=== PATIENT | female | born 1930 | race Caucasian/White ===

== ENCOUNTER 2018-06-07 05:08 | Inpatient (IN) | payer OTHER ==
--- NOTE | 2018-06-07 06:59 | PDOC ---
History of Present Illness - General Stated Complaint: FALL Time Seen by Provider: 06/07/18 06:44 History Source: Patient Exam Limitations: No Limitations - History of Present Illness Initial Comments: 06/07/18 06:45 [id number] with h/o HTN, HLD, vertigo, GERD, chronic low back pain, anxiety, appendectomy, and hysterectomy, was BIBEMS alongside her son s/p fall ~3 days ago. Patient herself cannot recall the exact date of the incident but states she slipped and fell while attempting to sort her garbage and recycling, had no preceding symptoms, no LOC, hit the front of her head states on a cardboard box , subsequently had small amount of left sided trunk pain worse in the left low ribs and hip. She did not tell her family about the incident at the time. She was functioning well with mild pain for the past couple of days until yesterday afternoon when her pain began worsening. States that her pain worsened significantly and awakened her from sleep this morning at 3 am, she called her son, and they decided to come into the ED. She has not been able to walk since yesterday afternoon. Has worsened pain with ranging the left hip and with deep breathing. Otherwise denies any symptoms lately. Past History - Past Medical History Allergies/Adverse Reactions: Allergies Allergy/AdvReac Type Severity Reaction Status Date / Time Iodinated Contrast- Oral and Allergy Severe Verified 06/07/18 07:09 IV Dye [IV Dye, Iodine Containing Contrast ] meperidine HCl [From Demerol] Allergy Severe Vomiting Verified 06/07/18 07:09 morphine Allergy Severe Vomiting Verified 06/07/18 07:09 pitavastatin calcium Allergy Verified 06/07/18 07:09 [From Livalo] venom-honey bee Allergy Verified 06/07/18 07:09 [bee venom (honey bee)] Home Medications: Ambulatory Orders Acetaminophen [Tylenol .Regular Strength -] 650 mg PO Q4H PRN #0 tablet Cholecalciferol (Vitamin D3) [Vitamin D3 -] 2,000 unit PO DAILY #0 tab 06/22/14 Ezetimibe [Zetia -] 10 mg PO DAILY #30 tablet 06/15/15 Aspirin 81 mg PO DAILY 06/07/18 Diltiazem Cd [Cardizem Cd -] 240 mg PO DAILY 01/17/19 Sertraline HCl [Zoloft] 25 mg PO DAILY 06/07/18 Anemia: No Asthma: No Cancer: No Cardiac Disorders: Yes (VT, cardiac cath; MVP) CVA: No COPD: No CHF: No Dementia: No Diabetes: No GI Disorders: No Disorders: No HTN: Yes Hypercholesterolemia: Yes Liver Disease: No Seizures: No Thyroid Disease: Yes (hypo) - Surgical History Abdominal Surgery: Yes Appendectomy: Yes Cardiac Surgery: No Cholecystectomy: No Lung Surgery: No Neurologic Surgery: No Orthopedic Surgery: No - Suicide/Smoking/Psychosocial Hx Smoking Status: No Smoking History: Never smoked Have you smoked in the past 12 months: No Number of Cigarettes Smoked Daily: 0 Hx Alcohol Use: No Drug/Substance Use Hx: No Substance Use Type: None Hx Substance Use Treatment: No Review of Systems - Review of Systems Able to Perform ROS?: Yes Comments:: GEN: no fever, chills, generalized weakness, or malaise HEENT: bruising, no ear pain, eye pain, throat pain, throat swelling, nosebleed , vision change, or loose teeth SKIN: bruises, no cuts, abrasions, rashes, or jaundice CV: left chest/rib pain, no palpitations, or LOC RESP: no cough or SOB GI: no abdominal pain, nausea, vomiting, or black/bloody stool : no hematuria or flank pain/bruising MSK: no muscle weakness, muscle pain, joint pain, or joint swelling NEURO: no headache, seizure, numbness, tingling, or focal weakness PSYCH: no suicidality, homicidality, or substance use *Physical Exam - Vital Signs Initial Vital Signs Temp Pulse Resp BP Pulse Ox 97.5 F L 93 H 19 184/91 H 97 06/07/18 05:10 06/07/18 05:10 06/07/18 05:10 06/07/18 05:10 06/07/18 05:10 - Physical Exam Comments: GENERAL: Arrives BIBEMS, not on backboard, not in C-collar A:protecting airway B: equal bilateral breath sounds C: extremities wwp x4, 2+ radial and DP pulses bilaterally D: GCS 15, A/Ox4, moving all extremities EXPOSURE: HEENT: see skin exam for frontal bruising, no obvious facial deformity, no cephalohematoma, no scalp laceration, no raccoon eyes, no proptosis, PERRLA, EOMI without pain, no nasal septal hematoma, no obvious CSF rhinorrhea, no epistaxis, no jaw malocclusion, no loose teeth, no becerra sign, no hemotympanum , no obvious CSF otorrhea CHEST WALL: no flail chest, no costal stepoff or deformity, no bruises or lesions, though there is marked ttp to left lateral inferior ribs extending anteriorly to the midclavicular line and posteriorly to the midscapular line CARDIOVASCULAR: regular rhythm, normal S1S2, 1/6 systolic ejection murmur, capillary refill <2 seconds RESPIRATORY: symmetric chest expansion on inspiration, no increased WOB, no cyanosis ABDOMEN: abdomen soft, nondistendedd, nontender, pelvis stable EXTREMITIES: no obvious deformity, full ROM without pain NECK&BACK: no neck or back hematoma, no midline vertebral tenderness C/T/L spine , no spinal step-off or deformity, no paraspinous ttp CTL spine NEURO:CN II-XII grossly intact, 5/5 strength and intact sensation throughout : no CVA tenderness SKIN: midsagittal superior frontal mild bruising, skin otherwise warm and dry, no pallor, no lacerations, no abrasions Heart Score/ECG Review #1 07:25 NSR, incomplete RBBB, normal axis and intervals, no ischemic ST-T changes ED Treatment Course - LABORATORY CBC & Chemistry Diagram: 06/08/18 06:30 06/08/18 06:30 Medical Decision Making - Medical Decision Making Elderly patient p/w fall with mild scalp bruising, rib pain, hip pain. Initial Vital Signs Temp Pulse Resp BP Pulse Ox 97.5 F L 93 H 19 184/91 H 97 06/07/18 05:10 06/07/18 05:10 06/07/18 05:10 06/07/18 05:10 06/07/18 05:10 Exam: As noted in Physical Exam section. DDX IBNLT: For head injury, could be simple scalp contusion, less likely concussion, ICH, skull fracture, facial bone fracture, etc. For rib pain, most likely rib contusion Vs. fracture, less likely splenic injury W/U ordered: Head and C-spine CT, CT chest/abdomen/pelvis, labs as noted, EKG TX ordered: Ofirmev, gentle IVF EKG: Reviewed; results as noted in ECG Review section. Laboratory Tests 06/07/18 06/07/18 06/07/18 08:33 08:33 08:33 WBC 8.5 RBC 4.68 Hgb 14.1 Hct 41.2 MCV 88.1 MCH 30.1 MCHC 34.1 RDW 14.5 Plt Count 225 MPV 9.0 Absolute Neuts (auto) 5.3 Neutrophils % 62.3 Lymphocytes % 27.4 Monocytes % 8.5 Eosinophils % 1.1 Basophils % 0.7 Nucleated RBC % 0 PT with INR 10.40 INR 0.88 PTT (Actin FS) 25.1 L Sodium 143 Potassium 4.4 Chloride 110 H Carbon Dioxide 28 Anion Gap 4 L BUN 20 H Creatinine 0.7 Creat Clearance w eGFR > 60 Random Glucose 93 Calcium 9.2 Magnesium 2.4 Total Bilirubin 0.4 AST 17 ALT 24 Alkaline Phosphatase 89 Creatine Kinase 80 Troponin I < 0.02 Total Protein 6.2 L Albumin 3.6 Blood Type Antibody Screen 06/07/18 08:33 WBC RBC Hgb Hct MCV MCH MCHC RDW Plt Count MPV Absolute Neuts (auto) Neutrophils % Lymphocytes % Monocytes % Eosinophils % Basophils % Nucleated RBC % PT with INR INR PTT (Actin FS) Sodium Potassium Chloride Carbon Dioxide Anion Gap BUN Creatinine Creat Clearance w eGFR Random Glucose Calcium Magnesium Total Bilirubin AST ALT Alkaline Phosphatase Creatine Kinase Troponin I Total Protein Albumin Blood Type AB POSITIVE Antibody Screen Negative CT/CERVICAL SPINE CT W/O CONTR Status post fall.. CT scan of the cervical spine C-. Direct axial images were obtained from the base of the skull through T4 The study was supplemented with computer-generated sagittal, coronal reconstruction images. Findings. No acute fracture, compression deformity, of subluxation is seen. Normal relationship of odontoid to anterior arch of C1. The predental space is narrowed. Intact odontoid. Symmetrical articulation of atlantoaxial and occipito atlantal joints. Normal height of vertebral bodies. Loss of interval disc space height noted at multiple levels with degenerative endplate sclerosis, anterior spondylosis, mild posterior discal osteophytes. Neural foramina narrowing observed at several levels attributed to the facet joint arthropathy, osteoarthritis of uncovertebral joints. Normal alignment of the facet joints. Normal alignment of the spinous processes. Patent airways. There is no evidence of prevertebral soft tissue swelling. The intraspinal contents cannot be adequately evaluated due to the beam hardening artifacts. The airways are patent. No evidence of prevertebral soft tissue swelling. The lung apices are clear. Enlarged right lobe of the thyroid gland with hypodense nodules Impression. No evidence of acute fracture, compression deformities, subluxation , prevertebral soft tissue swelling. Intact odontoid. Multilevel loss of interval disc space height, with degenerative endplate sclerosis, posterior para discal osteophytes. Neural foramina narrowing - osteoarthritis of uncovertebral joints, facet joint arthropathy. Enlarged right lobe of the thyroid gland with hypodense nodules CT/ABDOMEN PELVIS CT W/O CONTR [id number] CT/CHEST CT WITHOUT CONTRAST HISTORY PROVIDED: Fall TECHNIQUE: Sequential axial images were obtained from the thoracic inlet through the symphysis pubis. The study is markedly limited without the use of any contrast material. There is a nondisplaced fracture of the lateral left ninth rib. Associated with the fracture is a small pleural effusion which may represent blood. Minimal atelectatic changes are also seen within the left lower lobe. No additional rib fractures are identified. There is no evidence of a right pleural effusion. Examination of the mediastinum demonstrates right thyroid nodularity. Sonographic follow-up is recommended. There is no evidence of mediastinal masses, fluid collections or lymphadenopathy. The heart is not enlarged. The lung hurst are free of pulmonary masses or areas of acute consolidation. The liver, spleen, pancreas, right adrenal gland and kidneys demonstrate no significant abnormalities. There is a 2.1 cm cyst within the left lobe of the liver. There is a 4.4 cm cyst within the lower pole of the left kidney. There is a 2.5 cm hypodense mass within the left adrenal gland consistent with a benign adenoma. There is no definite evidence of intra-abdominal organ injury, although without the use of intravenous contrast this cannot be completely excluded. There is no evidence of intra-abdominal or retroperitoneal lymphadenopathy or fluid collections. Examination of the pelvis demonstrates no evidence of pelvic masses, fluid collections or lymphadenopathy. There is no evidence of additional fractures or acute bony abnormalities. There are sclerotic changes within several thoracic and lumbar vertebral bodies. The etiology of these changes is uncertain. They are unchanged since a prior study of 04/30/2012 and therefore considered benign in nature. IMPRESSION: 1. Nondisplaced fracture left ninth rib. 2. Small left pleural effusion that may represent a hemothorax related to the rib fracture. 3. Right thyroid nodularity. 4. Left adrenal nodule consistent with benign adenoma. 5. No additional evidence of acute pathology within the chest, abdomen or pelvis. RAD/HIP PELVIS-LEFT Left chest pain. Angle AP view of the pelvis. Left hip 2 views. Demineralized osseous structures. Chronic degenerative changes are observed at L4-5 L5-S1. Symmetrical articulation of the hip joints. Symmetrical bony trabecular pattern is seen in the proximal femur bilaterally. No displaced fracture is seen. Sclerosis of the symphysis pubis. Impression. No acute bony abnormalities are seen. RAD/CHEST - PA Chest pain. Single AP view of the chest. Comparison study study chest x-ray June 20, 2014. For additional findings please refer to the CT of the chest June 07, 2018. The lungs are well aerated, there is no evidence of pneumonia, CHF, pleural effusion, or pneumothorax. Demineralized osseous structures. Nondisplaced fracture of the left ninth rib seen on the CT of the chest is not clearly seen on the x-rays of the left ribs. ADMIT The Pt is unsafe for discharge at this time. They require further hospital observation, workup, and treatment. Microblog sent to [facility] for admission. Blank Decision to Admit order is placed per ED protocol. Spoke with admitting team u.s. representative, in agreement Pt to be admitted. Decision to Admit order corrected with admitting team covering attendings name. Decision to Admit order placed to admitting team covering attending. 06/07/18 10:[address] Montero to notify him of admission. Microblog sent to [facility] for admission. Blank Decision to Admit order placed per ED protocol. 06/07/18 10:[address] Montero who is aware the patient is staying. *DC/Admit/Observation/Transfer Diagnosis at time of Disposition: Fall from ground level, Pleural effusion, Hip pain, left Rib fracture Qualifiers: Encounter type: initial encounter Rib fracture type: single rib Fracture type: closed Laterality: left Qualified Code(s): S22.32XA - Fracture of one rib, left side, initial encounter for closed fracture - Discharge Dispostion Condition at time of disposition: Guarded Decision to Admit order: Yes - Referrals - Patient Instructions - Post Discharge Activity
[2018-06-07] MEDS ORDERED: SODIUM CHLORIDE 0.9% 500 ML INFUS.BAG IV ONE (07:03)
[2018-06-07] MEDS ORDERED: ACETAMINOPHEN 1000 MG/100 ML VIAL (NON FORMULARY) IVPB ONE (07:03)
[2018-06-07 07:09] VITALS: BMI 20.5
[2018-06-07] MEDS ORDERED: ACETAMINOPHEN INJECTION 100 ML IVPB ONE (07:23)
--- NOTE | 2018-06-07 07:43 | PDOC ---
Attending Attestation - Resident Resident Name: Belinda Shi - HPI HPI: 06/07/18 10:23 Pt presents to the ED complaining of L sided chest and hip pain after fall several days ago. Patient has mild dementia and is unable to recall the exact circumstances of the fall. Denies LOC. Pt and son state that she has been ambulatory since the injury. 06/07/18 11:33 - Physicial Exam PE: 06/07/18 11:34 Agree with resident exam. Patient is alert and oriented x 3 and in no acute distress. Lungs are clear. Heart: regular rate and rhythm. Abdomen soft, non tender, non distended without guarding or rebound. Full active ROM of L hip. - Medical Decision Making 06/07/18 11:36 Pt presents to the ED complaining of L hip pain and L rib pain after fall. CT chest shows 9th rib fx and small effusion that may be hemothorax. Given her age and the rib fracture, will admit for observation and pain control. CT head and C spine performed to rule out intracranial or cervical spinal injury and are negative. Hip xray negative for fx.
[2018-06-07 08:57] LABS: BASO % 0.7 % (0-2.0); EOS % 1.1 % (0-4.5); HEMATOCRIT 41.2 % (32.4-45.2); HEMOGLOBIN 14.1 GM/dL (10.7-15.3); LYMPH % 27.4 % (8-40); MCH 30.1 pg (25.7-33.7); MCHC 34.1 g/dl (32.0-36.0); MEAN CELL VOLUME 88.1 fl (80-96); MONO % 8.5 % (3.8-10.2); NEUT % 62.3 % (42.8-82.8); PLATELET COUNT 225 K/MM3 (134-434); RBC 4.68 M/mm3 (3.60-5.2); RDW 14.5 % (11.6-15.6); WHITE BLOOD COUNT 8.5 K/mm3 (4.0-10.0)
[2018-06-07 09:11] LABS: INR 0.88 (0.83-1.09); PROTHROMBIN TIME (PATIENT) 10.4 SEC (9.7-13.0)
[2018-06-07 09:13] LABS: ACTIVATED PTT 25.1 SECONDS (25.2-36.5)
[2018-06-07 09:21] LABS: ALBUMIN 3.6 g/dl (3.4-5.0); ALK PHOS 89 U/L (45-117); ANION GAP 4 MMOL/L (8-16); BILIRUBIN,TOTAL 0.4 mg/dL (0.2-1); BLOOD UREA NITROGEN 20 mg/dL (7-18); CALCIUM 9.2 mg/dL (8.5-10.1); CHLORIDE 110 mmol/L (98-107); CO2 28 mmol/L (21-32); CREATININE 0.7 mg/dL (0.55-1.3); GLUCOSE,RANDOM 93 mg/dL (74-106); MAGNESIUM 2.4 mg/dL (1.8-2.4); POTASSIUM 4.4 mmol/L (3.5-5.1); SGOT/AST 17 U/L (15-37); SGPT/ALT 24 U/L (13-61); SODIUM 143 mmol/L (136-145); TOT PROT 6.2 g/dl (6.4-8.2)
--- NOTE | 2018-06-07 11:45 | HP ---
Admitting History and Physical - Primary Care Physician PCP: Jay Montero - Admission Chief Complaint: fall History of Present Illness: 88 year old female comes in with a mechanical fall at home. Pt reports she was cleaning, she bent down which caused her to fall. Reports this happened around 4 days ago. Pt denies any prodromal symptoms of chest pain, sob, lightheadedness , or nausea. Denies loss of consciousness. Pt reports she was able to get up and ambulate in the last few days however this morning she woke up from left anterior chest pain and she was not able to ambulate due to pain. She reports the pain is radiating from left chest down to hip and LLE. Pt lives alone, so she called her son who brought her into the hospital. Pt is a poor historian and appears confused during my interaction. Denies any chest pain, sob, n/v/d, dysuria, fever/chills. 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 History of Recent Travel: No Home Medications - Allergies Allergies/Adverse Reactions: Allergies Allergy/AdvReac Type Severity Reaction Status Date / Time Iodinated Contrast- Oral and Allergy Severe Verified 06/07/18 07:09 IV Dye [IV Dye, Iodine Containing Contrast ] meperidine HCl [From Demerol] Allergy Severe Vomiting Verified 06/07/18 07:09 morphine Allergy Severe Vomiting Verified 06/07/18 07:09 pitavastatin calcium Allergy Verified 06/07/18 07:09 [From Livalo] venom-honey bee Allergy Verified 06/07/18 07:09 [bee venom (honey bee)] - Home Medications Home Medications: Ambulatory Orders Acetaminophen [Tylenol .Regular Strength -] 650 mg PO Q4H PRN #0 tablet Cholecalciferol (Vitamin D3) [Vitamin D3 -] 2,000 unit PO DAILY #0 tab 06/22/14 Ezetimibe [Zetia -] 10 mg PO DAILY #30 tablet 06/15/15 Aspirin 81 mg PO DAILY 06/07/18 Diltiazem Cd [Cardizem Cd -] 240 mg PO DAILY 06/07/18 Sertraline HCl [Zoloft] 25 mg PO DAILY 06/07/18 Family Disease History - Family Disease History Family Disease History: Heart Disease: Father (ETOH), Mother, Brother, Other: Father Review of Systems Findings/Remarks: as per hpi Physical Examination Vital Signs: Vital Signs Temperature 97.5 F L 06/07/18 05:10 Pulse Rate 93 H 06/07/18 05:10 Respiratory Rate 19 06/07/18 05:10 Blood Pressure 184/91 H 06/07/18 05:10 O2 Sat by Pulse Oximetry (%) 97 06/07/18 05:10 Constitutional: Yes: Well Nourished, No Distress, Calm Cardiovascular: Yes: Regular Rate and Rhythm Respiratory: Yes: Regular, CTA Bilaterally, Diminished (Left side, pt not taking deep breaths), Other (+ttp left anterior thorax). No: Accessory Muscle Use, Rhonchi, SOB, Tachypnea, Wheezes Gastrointestinal: Yes: WNL, Normal Bowel Sounds, Soft. No: Distention, Tenderness Renal/: Yes: WNL Musculoskeletal: Yes: Other (+ttp left lower chest wall) Edema: No Neurological: Yes: Alert, Confusion Psychiatric: Yes: Alert Labs: CBC, BMP 06/07/18 08:33 06/07/18 08:33 Problem List - Problems (1) Fall Assessment/Plan: s/p unwitnessed fall at home appears mechanical from pt's history, however pt is confused head ct neg imaging reviewed, Left 9th rib fx w/ small LLL pleural effusion pt w/ mod-severe left anterior chest wall pain, not taking deep breaths IS 10x/hr pulm consult appreciated adequate pain control PT eval possible ROSALIO placement Code(s): W19.XXXA - UNSPECIFIED FALL, INITIAL ENCOUNTER Qualifiers: Encounter type: initial encounter Qualified Code(s): W19.XXXA - Unspecified fall, initial encounter (2) Rib fracture Assessment/Plan: as above Code(s): S22.39XA - FRACTURE OF ONE RIB, UNSP SIDE, INIT FOR CLOS FX Qualifiers: Encounter type: initial encounter Rib fracture type: single rib Fracture type: closed Laterality: left Qualified Code(s): S22.32XA - Fracture of one rib, left side, initial encounter for closed fracture (3) Pleural effusion Assessment/Plan: as above Code(s): J90 - PLEURAL EFFUSION, NOT ELSEWHERE CLASSIFIED (4) Hyperlipidemia Assessment/Plan: chronic continue zetia outpt monitoring Code(s): E78.5 - HYPERLIPIDEMIA, UNSPECIFIED Qualifiers: Hyperlipidemia type: Pure hypercholesterolemia (5) Hypertension Assessment/Plan: improved suspect 2/2 anxiety/pain continue home meds Code(s): I10 - ESSENTIAL (PRIMARY) HYPERTENSION Qualifiers: Hypertension type: essential hypertension Qualified Code(s): I10 - Essential (primary) hypertension (6) Cognitive impairment Assessment/Plan: pt confused suspect early dementia discussed w/ son, pt has outpt work up in place Code(s): R41.89 - OTH SYMPTOMS AND SIGNS W COGNITIVE FUNCTIONS AND AWARENESS
--- NOTE | 2018-06-07 14:38 | EKG ---
Test Reason : Blood Pressure : / mmHG Vent. Rate : 092 BPM Atrial Rate : 092 BPM P-R Int : 174 ms QRS Dur : 080 ms QT Int : 366 ms P-R-T Axes : 060 028 032 degrees QTc Int : 452 ms NORMAL SINUS RHYTHM LEFT ATRIAL ENLARGEMENT SEPTAL INFARCT , AGE UNDETERMINED POSSIBLE LATERAL INFARCT , AGE UNDETERMINED POSSIBLE INFERIOR INFARCT , AGE UNDETERMINED ABNORMAL ECG WHEN COMPARED WITH ECG OF 13-JUN-2015 06:41, BORDERLINE CRITERIA FOR INFERIOR INFARCT ARE NOW PRESENT Confirmed by KEVIN CARRERO MD ([id number]) on 06/07/2018 2:37:55 PM Referred By: Confirmed By:KEVIN CARRERO MD
[2018-06-07] MEDS: ACETAMINOPHEN 325 MG TABLET (FP) PO SCH ×2 (15:00→22:24)
--- NOTE | 2018-06-07 15:25 | CON.PULM ---
Consult Consult Specialty:: PULM/CCM Referred by:: HAYDEE Reason for Consultation:: Abnormal CT imaging - History of Present Illness Chief Complaint: Fall History of Present Illness: 88 F, HTN, HLD, vertigo, GERD, chronic low back pain, anxiety, appendectomy, and hysterectomy. Admitted via the ER due to an apparent fall. The patient is unable to recall the exact date of the incident but it apparently happened about 3 days ago. She reports that she slipped and fell while attempting to sort her garbage. No LOC. She apparently hit the front of her head on a cardboard box and fell on her left side. Over the past 3 days her pain in her left rib cage and hip has worsened. She has been unable to ambulate due to the pain. CT Chest: minimal left effusion / non-displaced left 9th rib fracture / no parenchymal process - History Source History Provided By: Patient, Medical Record Limitations to Obtaining History: Poor Historian - Past Medical History [employer] ECOLOGIST: Yes: Vertigo, Other (cognitive impairment on exelon) Cardio/Vascular: Yes: HTN, Hyperlipdemia Pulmonary: No: Asthma, COPD, Pneumonia, Previously Intubated, Pulmonary Embolus , Pulmonary Fibrosis, Sleep Apnea Gastrointestinal: Yes: GERD Psych: Yes: Anxiety Musculoskeletal: Yes: Chronic low back pain ENT: Yes: Other (? 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 History of Recent Travel: No Home Medications - Allergies Allergies/Adverse Reactions: Allergies Allergy/AdvReac Type Severity Reaction Status Date / Time Iodinated Contrast- Oral and Allergy Severe Verified 06/07/18 07:09 IV Dye [IV Dye, Iodine Containing Contrast ] meperidine HCl [From Demerol] Allergy Severe Vomiting Verified 06/07/18 07:09 morphine Allergy Severe Vomiting Verified 06/07/18 07:09 pitavastatin calcium Allergy Verified 06/07/18 07:09 [From Livalo] venom-honey bee Allergy Verified 06/07/18 07:09 [bee venom (honey bee)] - Home Medications Home Medications: Ambulatory Orders Acetaminophen [Tylenol .Regular Strength -] 650 mg PO Q4H PRN #0 tablet Cholecalciferol (Vitamin D3) [Vitamin D3 -] 2,000 unit PO DAILY #0 tab 06/22/14 Ezetimibe [Zetia -] 10 mg PO DAILY #30 tablet 06/15/15 Valsartan [Diovan] 80 mg PO DAILY #30 tablet 06/15/15 Aspirin 81 mg PO DAILY 06/07/18 Diltiazem Cd [Cardizem Cd -] 240 mg PO DAILY 06/07/18 Meclizine HCl [Antivert -] 12.5 mg PO TID PRN 06/07/18 Sertraline HCl [Zoloft] 25 mg PO DAILY 06/07/18 Family Disease History - Family Disease History Family Disease History: Heart Disease: Father (ETOH), Mother, Brother, Other: Father Review of Systems - Review of Systems Constitutional: denies: Chills, Fever, Malaise, Night Sweats, Unintentional Wgt. Loss Eyes: reports: No Symptoms HENT: reports: No Symptoms Neck: reports: No Symptoms Cardiovascular: reports: Chest Pain. denies: Edema, Palpitations, Shortness of Breath Respiratory: reports: Cough, SOB. denies: Hemoptysis, Snoring, SOB on Exertion , Wheezing Gastrointestinal: reports: No Symptoms Genitourinary: reports: No Symptoms Breasts: reports: No Symptoms Reported Musculoskeletal: reports: Decreased ROM, Extremity Pain, Joint Pain, Muscle Pain , Muscle Cramps Integumentary: reports: No Symptoms Neurological: reports: No Symptoms, Confusion. denies: Change in LOC, Change in Speech Endocrine: reports: No Symptoms Hematology/Lymphatic: reports: No Symptoms Psychiatric: reports: No Symptoms Physical Exam Vital Sings: Vital Signs Temperature 97.5 F L 06/07/18 05:10 Pulse Rate 93 H 06/07/18 05:10 Respiratory Rate 06/07/18 05:10 Blood Pressure 184/91 H 06/07/18 05:10 O2 Sat by Pulse Oximetry (%) 97 06/07/18 05:10 Constitutional: Yes: No Distress, Calm Eyes: Yes: Conjunctiva Clear, EOM Intact HENT: Yes: Atraumatic, Normocephalic Neck: Yes: Supple, Trachea Midline Cardiovascular: Yes: Regular Rate and Rhythm Respiratory: Yes: CTA Bilaterally. No: Accessory Muscle Use, On Nasal O2, Rales , Rhonchi, SOB, SOB on Exertion, Stridor, Tachypnea, Wheezes ...Inspection: Yes: WNL ...Clubbing: No Gastrointestinal: Yes: Normal Bowel Sounds, Soft Breast(s): Yes: WNL Musculoskeletal: Yes: Muscle Pain Extremities: Yes: WNL Edema: No Peripheral Pulses WNL: Yes Integumentary: Yes: WNL Neurological: Yes: WNL, Alert, Oriented, Confusion ...Motor Strength: WNL Psychiatric: Yes: WNL, Alert, Oriented Labs: CBC, BMP 06/07/18 08:33 06/07/18 08:33 Imaging - Results Chest X-ray: Report Reviewed, Image Reviewed Cat Scan: Report Reviewed, Image Reviewed Problem List - Problems (1) Hip pain, left Code(s): M25.552 - PAIN IN LEFT HIP (2) Pleural effusion Code(s): J90 - PLEURAL EFFUSION, NOT ELSEWHERE CLASSIFIED (3) Rib fracture Code(s): S22.39XA - FRACTURE OF ONE RIB, UNSP SIDE, INIT FOR CLOS FX Qualifiers: Encounter type: initial encounter Rib fracture type: single rib Fracture type: closed Laterality: left Qualified Code(s): S22.32XA - Fracture of one rib, left side, initial encounter for closed fracture (4) Abnormal chest xray Code(s): R93.8 - ABNORMAL FINDINGS ON DIAGNOSTIC IMAGING OF RISHABH * DO NOT USE * (5) Cognitive impairment Code(s): R41.89 - OTH SYMPTOMS AND SIGNS W COGNITIVE FUNCTIONS AND AWARENESS (6) Hyperlipidemia Code(s): E78.5 - HYPERLIPIDEMIA, UNSPECIFIED Qualifiers: Hyperlipidemia type: Pure hypercholesterolemia (7) Hypertension Code(s): I10 - ESSENTIAL (PRIMARY) HYPERTENSION Qualifiers: Hypertension type: essential hypertension Qualified Code(s): I10 - Essential (primary) hypertension (8) Vertigo Code(s): R42 - DIZZINESS AND GIDDINESS Assessment/Plan Minimal left effusion may be small amount of blood from the left 9th rib non- displaced fracture No PTX is noted No intervention needed at this time for minimal left effusion Adequate pain control O2 as needed Incentive Spirometry Fall precautions PT No follow up imaging required No Pulmonary contraindication for D/C planning Will follow Thank you. Dr Newman
[2018-06-07] MEDS: oxyCODONE HCL 5 MG TABLET PO PRN (17:51)
[2018-06-07] MEDS ORDERED: PT OWN MED DRAWER 7, Y5N ONE (18:15)
[2018-06-07] MEDS: ALPRAZolam 0.25 MG TABLET PO SCH (22:23)
[2018-06-07] MEDS: DOCUSATE SODIUM 100 MG CAPSULE (FP) PO SCH (22:24)
[2018-06-08] MEDS: ACETAMINOPHEN 325 MG TABLET (FP) PO SCH ×5 (00:28→23:38)
[2018-06-08 07:15] LABS: BASO % 0.5 % (0-2.0); EOS % 2.2 % (0-4.5); HEMATOCRIT 40.8 % (32.4-45.2); HEMOGLOBIN 13.8 GM/dL (10.7-15.3); LYMPH % 28.6 % (8-40); MCH 30.2 pg (25.7-33.7); MCHC 33.8 g/dl (32.0-36.0); MEAN CELL VOLUME 89.4 fl (80-96); MEAN PLT VOLUME 8.7 fl (7.5-11.1); MONO % 10.3 % (3.8-10.2); NEUT % 58.4 % (42.8-82.8); PLATELET COUNT 216 K/MM3 (134-434); RBC 4.57 M/mm3 (3.60-5.2); RDW 14.3 % (11.6-15.6); WHITE BLOOD COUNT 8.6 K/mm3 (4.0-10.0)
[2018-06-08 07:54] LABS: ALBUMIN 3.3 g/dl (3.4-5.0); ALK PHOS 86 U/L (45-117); ANION GAP 5 MMOL/L (8-16); BILIRUBIN,TOTAL 0.6 mg/dL (0.2-1); BLOOD UREA NITROGEN 22 mg/dL (7-18); CALCIUM 8.8 mg/dL (8.5-10.1); CHLORIDE 106 mmol/L (98-107); CO2 27 mmol/L (21-32); CREATININE 0.7 mg/dL (0.55-1.3); GLUCOSE,RANDOM 90 mg/dL (74-106); POTASSIUM 4.1 mmol/L (3.5-5.1); SGOT/AST 16 U/L (15-37); SGPT/ALT 20 U/L (13-61); SODIUM 138 mmol/L (136-145); TOT PROT 5.9 g/dl (6.4-8.2)
--- NOTE | 2018-06-08 09:58 | PN ---
Progress Note (short form) - Note Progress Note: [employer] Shankar/ Hospitalist to document today. I would rec: SNF if not able to complete PT program.
[2018-06-08] MEDS: ALPRAZolam 0.25 MG TABLET PO SCH ×2 (10:23→21:50)
[2018-06-08] MEDS: SERTRALINE HCL 25 MG TABLET (FP) PO SCH (10:23)
[2018-06-08] MEDS: EZETIMIBE 10 MG TABLET (FP) PO SCH (10:23)
[2018-06-08] MEDS: oxyCODONE HCL 5 MG TABLET PO PRN (10:23)
[2018-06-08] MEDS: POLYETHYLENE GLYCOL 3350 119 GM BTL PO SCH (10:26)
--- NOTE | 2018-06-08 10:49 | PN ---
Progress Note, Physician Chief Complaint: Pt sitting in bed in no acute distress. encourages IS use. son at bedside. increased pain w/ inspiration noted, encouraged pain meds. Denies any chest pain , sob, n/v/d - Current Medication List Current Medications: Active Medications Acetaminophen (Tylenol -) 650 mg PO Q6HPO [facility] Last Admin: 06/08/18 05:35 Dose: Not Given Alprazolam (Xanax -) 0.5 mg PO BID [facility] Last Admin: 06/08/18 10:23 Dose: 0.5 mg Diltiazem HCl (Cardizem Cd -) 240 mg PO DAILY [facility] Last Admin: 06/08/18 10:23 Dose: 240 mg Docusate Sodium (Colace -) 300 mg PO HS [facility] Last Admin: 06/07/18 22:24 Dose: 300 mg Ezetimibe (Zetia -) 10 mg PO DAILY [facility] Last Admin: 06/08/18 10:23 Dose: 10 mg Oxycodone HCl (Roxicodone -) 5 mg PO Q4H PRN PRN Reason: PAIN LEVEL 6-10 Last Admin: 06/08/18 10:23 Dose: 5 mg Polyethylene Glycol (Miralax (For Daily Use) -) 17 gm PO DAILY [facility] Last Admin: 06/08/18 10:26 Dose: 17 gm Sertraline HCl (Zoloft -) 25 mg PO DAILY [facility] Last Admin: 06/08/18 10:23 Dose: 25 mg - Objective Vital Signs: Vital Signs Temperature 98.7 F 06/08/18 06:00 Pulse Rate 82 06/08/18 10:31 Respiratory Rate 20 06/08/18 10:31 Blood Pressure 145/85 06/08/18 10:31 O2 Sat by Pulse Oximetry (%) 98 06/07/18 21:00 Constitutional: Yes: Well Nourished, No Distress Cardiovascular: Yes: Regular Rate and Rhythm Respiratory: Yes: Regular, Diminished, Other (+ttp, anterior chest wall). No: Accessory Muscle Use, SOB, Tachypnea, Wheezes Gastrointestinal: Yes: WNL, Normal Bowel Sounds, Soft. No: Distention, Tenderness Genitourinary: Yes: WNL Edema: No Neurological: Yes: Alert, Confusion, Weakness (right side). No: Facial Droop, Lethargy, Numbness Psychiatric: Yes: Alert Labs: CBC, BMP 06/08/18 06:30 06/08/18 06:30 INR, PTT INR 0.88 (0.83-1.09) 06/07/18 08:33 Assessment/Plan (1) Fall Assessment/Plan: s/p unwitnessed fall at home appears mechanical from pt's history, however pt is confused and with new finding of right hemiparesis, need to r/o cva head ct neg, MRI brain ordered cardiac echo/carotid duplex ordered PT consider neuro eval if MRI w/ acute findings ROSALIO placement, discussed w/ son Code(s): W19.XXXA - UNSPECIFIED FALL, INITIAL ENCOUNTER Qualifiers: Encounter type: initial encounter Qualified Code(s): W19.XXXA - Unspecified fall, initial encounter (2) Rib fracture Assessment/Plan: continue IS 10x/hr adequate pain control encourage deep breathing/coughing Code(s): S22.39XA - FRACTURE OF ONE RIB, UNSP SIDE, INIT FOR CLOS FX Qualifiers: Encounter type: initial encounter Rib fracture type: single rib Fracture type: closed Laterality: left Qualified Code(s): S22.32XA - Fracture of one rib, left side, initial encounter for closed fracture (3) Pleural effusion Assessment/Plan: evaluated by pulm monitor Code(s): J90 - PLEURAL EFFUSION, NOT ELSEWHERE CLASSIFIED (4) Hyperlipidemia Assessment/Plan: chronic continue zetia outpt monitoring Code(s): E78.5 - HYPERLIPIDEMIA, UNSPECIFIED Qualifiers: Hyperlipidemia type: Pure hypercholesterolemia (5) Hypertension Assessment/Plan: controlled continue home meds Code(s): I10 - ESSENTIAL (PRIMARY) HYPERTENSION Qualifiers: Hypertension type: essential hypertension Qualified Code(s): I10 - Essential (primary) hypertension (6) Cognitive impairment Assessment/Plan: possible dementia, undiagnosed discussed w/ son, pt has outpt work up in place Code(s): R41.89 - OTH SYMPTOMS AND SIGNS W COGNITIVE FUNCTIONS AND AWARENESS (7) Hemiparesis Assessment/Plan: unclear if acute/chronic as above Code(s): G81.90 - HEMIPLEGIA, UNSPECIFIED AFFECTING UNSPECIFIED SIDE Qualifiers: Hemiparesis etiology: unspecified Hemiparesis laterality: right dominant side Qualified Code(s): G81.91 - Hemiplegia, unspecified affecting right Dispo: SNF
--- NOTE | 2018-06-08 15:17 | ECHO ---
Version: 1 Name: MONICA HENLEY Exam: Adult Echocardiogram Study Date: 06/08/2018, 1:58 PM Age: 88 Years MMode/2D Measurements & Calculations IVSd: 1.00 cm LVIDs: 3.4 cm LVIDd: 5.0 cm LVPWd: 0.74 cm ACS: 1.57 cm Ao root diam: 3.3 cm LA dimension: 3.1 cm Doppler Measurements & Calculations MV E max sergio: 57.3 cm/sec Med E/e': 29.4 MV A max sergio: 107.4 cm/sec Med Peak E' Sergio: 1.95 cm/sec MV E/A: 0.53 Lat E/e': 6.0 Lat Peak E' Sergio: 9.6 cm/sec MR max P.2 mmHg Ao max P.8 mmHg Ao mean P.1 mmHg Ao V2 max: 148.1 cm/sec AI P1/2t: 546.0 msec Procedure A two-dimensional transthoracic echocardiogram with color flow and Doppler was performed. Left Ventricle Basal septal. Left ventricular systolic function is normal. Ejection Fraction = 55%. Right Ventricle The right ventricle is normal in size and function. Atria Normal left and right atrial size and function. Mitral Valve There is moderate mitral annular calcification. There is moderate mitral valve thickening. There is no mitral valve stenosis. There is mild mitral regurgitation. Tricuspid Valve The tricuspid valve is normal in structure and function. There is mild tricuspid regurgitation. Aortic Valve There is mild aortic sclerosis.;. No hemodynamically significant valvular aortic stenosis. Mild aort ic regurgitation. Pulmonic Valve The pulmonic valve is not well seen, but is grossly normal. There is no pulmonic valvular stenosis. Mild pulmonic valvular regurgitation. Great Vessels The aortic root is normal size. Pericardium/Pleura There is no pericardial effusion. Summary Statements Basal septal Left ventricular systolic function is normal. Ejection Fraction = 55%. There is moderate mitral annular calcification. There is moderate mitral valve thickening. There is mild mitral regurgitation. There is mild tricuspid regurgitation. There is mild aortic sclerosis.; Mild aortic regurgitation. There is no pericardial effusion. MD Moreira *Abisai 06/08/2018, 3:16 PM Ordering Physician: Kaur Chaparro Performed By: Ro Garcia
[2018-06-08] MEDS: HEPARIN NA (PORCINE) 5,000 UNITS/ML 1ML VIAL SQ SCH (21:49)
[2018-06-08] MEDS: DOCUSATE SODIUM 100 MG CAPSULE (FP) PO SCH (21:50)
[2018-06-09] MEDS: HEPARIN NA (PORCINE) 5,000 UNITS/ML 1ML VIAL SQ SCH ×3 (06:21→23:01)
[2018-06-09] MEDS: ACETAMINOPHEN 325 MG TABLET (FP) PO SCH ×3 (06:21→17:15)
[2018-06-09 09:05] LABS: BASO % 0.8 % (0-2.0); EOS % 2.8 % (0-4.5); HEMATOCRIT 43.2 % (32.4-45.2); HEMOGLOBIN 14.3 GM/dL (10.7-15.3); MCH 29.8 pg (25.7-33.7); MCHC 33.2 g/dl (32.0-36.0); MEAN CELL VOLUME 89.6 fl (80-96); MEAN PLT VOLUME 8.6 fl (7.5-11.1); MONO % 8.3 % (3.8-10.2); NEUT % 59.1 % (42.8-82.8); PLATELET COUNT 227 K/MM3 (134-434); RBC 4.82 M/mm3 (3.60-5.2); RDW 14.5 % (11.6-15.6); WHITE BLOOD COUNT 7.8 K/mm3 (4.0-10.0)
[2018-06-09 09:50] LABS: ANION GAP 8 MMOL/L (8-16); BLOOD UREA NITROGEN 17 mg/dL (7-18); CALCIUM 9.1 mg/dL (8.5-10.1); CHLORIDE 107 mmol/L (98-107); CO2 28 mmol/L (21-32); CREATININE 0.7 mg/dL (0.55-1.3); GLUCOSE,RANDOM 83 mg/dL (74-106); SODIUM 142 mmol/L (136-145)
[2018-06-09] MEDS: ALPRAZolam 0.25 MG TABLET PO SCH ×2 (11:12→23:01)
[2018-06-09] MEDS: EZETIMIBE 10 MG TABLET (FP) PO SCH (11:13)
[2018-06-09] MEDS: oxyCODONE HCL 5 MG TABLET PO PRN (11:13)
[2018-06-09] MEDS: SERTRALINE HCL 25 MG TABLET (FP) PO SCH (11:13)
[2018-06-09] MEDS: POLYETHYLENE GLYCOL 3350 119 GM BTL PO SCH (11:15)
--- NOTE | 2018-06-09 13:44 | PN ---
Progress Note (short form) - Note Progress Note: PULMONARY Still with pain. Denies shortness of breath or cough. Vital Signs Period Temp Pulse Resp BP Sys/Barber Pulse Ox Last 24 Hr 97.6 F-98.4 F 72-81 18-20 112-137/57-77 95 Gen: NAD at rest Heart: RRR Lung: decreased breath sounds at the bases Abd: soft, nontender Ext: no edema CBC, BMP 06/09/18 07:30 06/09/18 07:30 Active Medications Acetaminophen (Tylenol -) 650 mg PO Q6HPO [facility] Last Admin: 06/09/18 06:21 Dose: Not Given Alprazolam (Xanax -) 0.5 mg PO BID [facility] Last Admin: 06/09/18 11:12 Dose: 0.5 mg Diltiazem HCl (Cardizem Cd -) 240 mg PO DAILY [facility] Last Admin: 06/09/18 11:13 Dose: 240 mg Docusate Sodium (Colace -) 300 mg PO HS [facility] Last Admin: 06/08/18 21:50 Dose: 300 mg Ezetimibe (Zetia -) 10 mg PO DAILY [facility] Last Admin: 06/09/18 11:13 Dose: 10 mg Heparin Sodium (Porcine) (Heparin -) 5,000 unit SQ TID [facility] Last Admin: 06/09/18 06:21 Dose: Not Given Oxycodone HCl (Roxicodone -) 5 mg PO Q4H PRN PRN Reason: PAIN LEVEL 6-10 Last Admin: 06/09/18 11:13 Dose: 5 mg Polyethylene Glycol (Miralax (For Daily Use) -) 17 gm PO DAILY [facility] Last Admin: 06/09/18 11:15 Dose: 17 gm Sertraline HCl (Zoloft -) 25 mg PO DAILY [facility] Last Admin: 06/09/18 11:13 Dose: 25 mg A/P s/p Fall Rib Fracture Reactive Pleural Effusion vs Small Hemothorax Atelectasis HTN Hyperlipidemia - pain control - incentive spirometry - O2 as needed - DVT prophylaxis
--- NOTE | 2018-06-09 13:47 | PN ---
Physical Exam: SUBJECTIVE: Patient seen and examined. Left chest wall pain with breathing and movement, no leg pain or new weakness noted. OBJECTIVE: Vital Signs Period Temp Pulse Resp BP Sys/Barber Pulse Ox Last 24 Hr 97.6 F-98.4 F 72-81 18-20 112-137/57-77 95 GENERAL: The patient is awake, alert, oriented, no acute distress neck: soft, supple no JVD CVS:S1S2 regular Chest: decreased breath sounds left base, no rales, good effort otherwise Abdomen:soft, NT, Nd, positive bowel sounds Extremities: no edema, SLR upto 40 degrees, LLE limited by pain left chest wall , power 5/5 Neuro: AAOx3, facial symmetry, tongue midline, speech normal, no pronator drift , power generalized 4/5, LLE limited by pain in left chest wall, Laboratory Results - last 24 hr 06/09/18 06/09/18 07:30 07:30 WBC 7.8 RBC 4.82 Hgb 14.3 Hct 43.2 MCV 89.6 MCH 29.8 MCHC 33.2 RDW 14.5 Plt Count 227 MPV 8.6 Absolute Neuts (auto) 4.6 Neutrophils % 59.1 Lymphocytes % 29.0 Monocytes % 8.3 Eosinophils % 2.8 Basophils % 0.8 Nucleated RBC % 0 Sodium 142 Potassium 4.0 Chloride 107 Carbon Dioxide 28 Anion Gap 8 BUN 17 Creatinine 0.7 Creat Clearance w eGFR > 60 Random Glucose 83 Calcium 9.1 Active Medications Generic Name Dose Route Start Last Admin Trade Name Freq PRN Reason Stop Dose Admin Acetaminophen 650 mg 06/07/18 12:00 06/09/18 06:21 Tylenol - PO Not Given Q6HPO NATALIE Alprazolam 0.5 mg 06/07/18 22:00 06/09/18 11:12 Xanax - PO 0.5 mg BID NATALIE Administration Diltiazem HCl 240 mg 06/07/18 16:15 06/09/18 11:13 Cardizem Cd - PO 240 mg DAILY NATALIE Administration Docusate Sodium 300 mg 06/07/18 22:00 06/08/18 21:50 Colace - PO 300 mg HS NATALIE Administration Ezetimibe 10 mg 06/08/18 10:00 06/09/18 11:13 Zetia - PO 10 mg DAILY NATALIE Administration Heparin Sodium (Porcine) 5,000 unit 06/08/18 22:00 06/09/18 06:21 Heparin - SQ Not Given TID NATALIE Oxycodone HCl 5 mg 06/07/18 11:46 06/09/18 11:13 Roxicodone - PO 5 mg Q4H PRN Administration PAIN LEVEL 6-10 Polyethylene Glycol 17 gm 06/08/18 10:00 06/09/18 11:15 Miralax (For Daily Use) - PO 17 gm DAILY NATALIE Administration Sertraline HCl 25 mg 06/08/18 10:00 06/09/18 11:13 Zoloft - PO 25 mg DAILY NATALIE Administration 2D echo/Carotid Duplex results reviewed ASSESSMENT/PLAN: 88 yof with PMHx of HTN, HLD, GERD, Chronic low back pain, Vertigo admitted with fall, left right fracture with small left pleural effusion, concern for right sided weakness while working with PT. -Mechanical fall -Left rib fracture with small left pleural effusion -Concern for right hemiparesis,with PT, ?acute vs chronic, r/o CVA -HTN -HLD -GERD -Chronic low back pain -Vertigo Plan: Follow up MRI brain. 2D echo/carotid duplex noted. PT eval noted. Pulmonary input appreciated, Incentive spirometry, pain control Diltiazem/zetia/serteraline/xanax DVTPPx Heparin Dispo for SNF pending MRI brain if no concerns. Plan discussed with patient and nursing in detail, all questions answered. Visit type - Emergency Visit Emergency Visit: Yes ED Registration Date: 06/07/18 Care time: The patient presented to the Emergency Department on the above date and was hospitalized for further evaluation of their emergent condition. - New Patient This patient is new to me today: Yes Date on this admission: 06/09/18 - Critical Care Critical Care patient: No - Discharge Referral Referred to [facility] Med P.C.: No
[2018-06-09] MEDS: DOCUSATE SODIUM 100 MG CAPSULE (FP) PO SCH (23:01)
[2018-06-10] MEDS: ACETAMINOPHEN 325 MG TABLET (FP) PO SCH ×4 (00:26→18:03)
--- NOTE | 2018-06-10 04:17 | HOSP ---
Physical Examination Vital Signs: Vital Signs Temperature 98.7 F 06/09/18 18:30 Pulse Rate 82 06/09/18 18:30 Respiratory Rate 18 06/09/18 18:30 Blood Pressure 89/66 L 06/09/18 18:30 O2 Sat by Pulse Oximetry (%) 95 06/09/18 09:00 Labs: CBC, BMP 06/09/18 07:30 06/09/18 07:30 Hospitalist Encounter Assessment: Called and informed pt complaining of lower abdominal discomfort. Bladder scan > 600 cc. Chart reviewed, pt admitted with Fall, confusion/dimentia at baseline? Straight cath now and send UA as pt history not completely reliable as per chart and UTI could have been an exacerbating factor in her mechanical fall. Will follow results and order repeat bladder scan in 4 hours. Visit type - Emergency Visit Emergency Visit: Yes ED Registration Date: 06/07/18 Care time: The patient presented to the Emergency Department on the above date and was hospitalized for further evaluation of their emergent condition. - New Patient This patient is new to me today: Yes Date on this admission: 06/10/18 - Critical Care Critical Care patient: No
[2018-06-10] MEDS: HEPARIN NA (PORCINE) 5,000 UNITS/ML 1ML VIAL SQ SCH ×3 (06:53→22:22)
[2018-06-10 09:51] LABS: URINE APPEARANCE CLEAR; URINE BILIRUBIN NEGATIVE (<2.0 mg/dL); URINE COLOR YELLOW; URINE GLUCOSE (UA) NEGATIVE (NEGATIVE); URINE KETONE NEGATIVE (NEGATIVE); URINE LEUK ESTERASE NEGATIVE (NEGATIVE); URINE NITRITE NEGATIVE (NEGATIVE); URINE PROTEIN NEGATIVE (NEGATIVE); URINE UROBILINOGEN NEGATIVE mg/dL (0.2-1.0)
--- NOTE | 2018-06-10 11:29 | PN ---
Physical Exam: SUBJECTIVE: Patient seen and examined, reports left sided chest pain. Wants to see her doctor of 25 years. OBJECTIVE: Vital Signs Period Temp Pulse Resp BP Sys/Barber Pulse Ox Last 24 Hr 97.9 F-98.7 F 74-86 18-20 89-134/59-66 95 GENERAL: The patient is awake, alert, oriented, in no acute distress. HEAD: Normal with no signs of trauma. EYES: PERRL, extraocular movements intact, sclera anicteric, conjunctiva clear. No ptosis. ENT: Ears normal, nares patent, oropharynx clear without exudates, moist mucous membranes. NECK: Trachea midline, full range of motion, supple. LUNGS: Breath sounds equal, clear to auscultation bilaterally, no wheezes, no crackles, no accessory muscle use. , left lower chest wall tenderness HEART: Regular rate and rhythm, S1, S2 ABDOMEN: Soft, nontender, nondistended, normoactive bowel sounds, no guarding, no rebound EXTREMITIES: 2+ pulses, warm, well-perfused, no edema. Neuro: AAOx3, facial symmetry, tongue midline, speech normal, no pronator drift , power generalized 4/5, LLE limited by pain in left chest wall, unchanged exam Laboratory Results - last 24 hr 06/10/18 04:00 Urine Color Yellow Urine Appearance Clear Urine pH 5.0 D Ur Specific [place] 1.018 Urine Protein Negative Urine Glucose (UA) Negative Urine Ketones Negative Urine Blood Negative Urine Nitrite Negative Urine Bilirubin Negative Urine Urobilinogen Negative Ur Leukocyte Esterase Negative Active Medications Generic Name Dose Route Start Last Admin Trade Name Freq PRN Reason Stop Dose Admin Acetaminophen 650 mg 06/07/18 12:00 06/10/18 06:52 Tylenol - PO 650 mg Q6HPO NATALIE Administration Alprazolam 0.5 mg 06/07/18 22:00 06/09/18 23:01 Xanax - PO 0.5 mg BID NATALIE Administration Diltiazem HCl 240 mg 06/07/18 16:15 06/09/18 11:13 Cardizem Cd - PO 240 mg DAILY [facility]IE Administration Docusate Sodium 300 mg 06/07/18 22:00 06/09/18 23:01 Colace - PO 300 mg HS NATALIE Administration Ezetimibe 10 mg 06/08/18 10:00 06/09/18 11:13 Zetia - PO 10 mg DAILY [facility] Administration Heparin Sodium (Porcine) 5,000 unit 06/08/18 22:00 06/10/18 06:53 Heparin - SQ 5,000 unit TID NATALIE Administration Oxycodone HCl 5 mg 06/07/18 11:46 06/09/18 11:13 Roxicodone - PO 5 mg Q4H PRN Administration PAIN LEVEL 6-10 Polyethylene Glycol 17 gm 06/08/18 10:00 06/09/18 11:15 Miralax (For Daily Use) - PO 17 gm DAILY NATALIE Administration Sertraline HCl 25 mg 06/08/18 10:00 06/09/18 11:13 Zoloft - PO 25 mg DAILY NATALIE Administration MRI brain results reviewed ASSESSMENT/PLAN: 88 yof with PMHx of HTN, HLD, GERD, Chronic low back pain, Vertigo admitted with fall, left right fracture with small left pleural effusion, concern for right sided weakness while working with PT. -Mechanical fall -Left rib fracture with small left pleural effusion -Concern for right hemiparesis,with PT, ?acute vs chronic, r/o CVA -HTN -HLD -GERD -Chronic low back pain -Vertigo Plan: Overnight events noted. Discussed with nursing, patient tends to hold urine overnight, when not assisted to urinal No further concerns for retention, u/a neg. MRI brain results noted. 2D echo/carotid duplex noted. PT eval noted. Pulmonary input appreciated, Incentive spirometry, pain control Diltiazem/zetia/serteraline/xanax DVTPPx Heparin Dispo for SNF pending bed availability. Plan discussed with patient, CM and nursing in detail, all questions answered. Visit type - Emergency Visit Emergency Visit: Yes ED Registration Date: 06/07/18 Care time: The patient presented to the Emergency Department on the above date and was hospitalized for further evaluation of their emergent condition. - New Patient This patient is new to me today: No - Critical Care Critical Care patient: No - Discharge Referral Referred to [facility] Med P.C.: No
--- NOTE | 2018-06-10 11:36 | PN ---
Progress Note (short form) - Note Progress Note: PULMONARY Feels better today. Denies shortness of breath or cough. Vital Signs Period Temp Pulse Resp BP Sys/Barber Pulse Ox Last 24 Hr 97.9 F-98.7 F 74-86 18-20 89-134/59-66 95 Gen: NAD at rest Heart: RRR Lung: decreased breath sounds at the bases Abd: soft, nontender Ext: no edema CBC, BMP 06/09/18 07:30 06/09/18 07:30 Active Medications Acetaminophen (Tylenol -) 650 mg PO Q6HPO [facility] Last Admin: 06/10/18 06:52 Dose: 650 mg Alprazolam (Xanax -) 0.5 mg PO BID [facility] Last Admin: 06/09/18 23:01 Dose: 0.5 mg Diltiazem HCl (Cardizem Cd -) 240 mg PO DAILY [facility] Last Admin: 06/09/18 11:13 Dose: 240 mg Docusate Sodium (Colace -) 300 mg PO HS [facility] Last Admin: 06/09/18 23:01 Dose: 300 mg Ezetimibe (Zetia -) 10 mg PO DAILY [facility] Last Admin: 06/09/18 11:13 Dose: 10 mg Heparin Sodium (Porcine) (Heparin -) 5,000 unit SQ TID [facility] Last Admin: 06/10/18 06:53 Dose: 5,000 unit Oxycodone HCl (Roxicodone -) 5 mg PO Q4H PRN PRN Reason: PAIN LEVEL 6-10 Last Admin: 06/09/18 11:13 Dose: 5 mg Polyethylene Glycol (Miralax (For Daily Use) -) 17 gm PO DAILY [facility] Last Admin: 06/09/18 11:15 Dose: 17 gm Sertraline HCl (Zoloft -) 25 mg PO DAILY [facility] Last Admin: 06/09/18 11:13 Dose: 25 mg A/P s/p Fall Rib Fracture Reactive Pleural Effusion vs Small Hemothorax Atelectasis HTN Hyperlipidemia - pain control - incentive spirometry - O2 as needed - DVT prophylaxis
[2018-06-10] MEDS: EZETIMIBE 10 MG TABLET (FP) PO SCH (11:55)
[2018-06-10] MEDS: ALPRAZolam 0.25 MG TABLET PO SCH ×2 (11:55→22:22)
[2018-06-10] MEDS: oxyCODONE HCL 5 MG TABLET PO PRN (11:55)
[2018-06-10] MEDS: SERTRALINE HCL 25 MG TABLET (FP) PO SCH (11:55)
[2018-06-10] MEDS: POLYETHYLENE GLYCOL 3350 119 GM BTL PO SCH (11:56)
[2018-06-10] MEDS: DOCUSATE SODIUM 100 MG CAPSULE (FP) PO SCH (22:21)
[2018-06-11] MEDS: ACETAMINOPHEN 325 MG TABLET (FP) PO SCH ×5 (01:55→23:09)
[2018-06-11] MEDS: HEPARIN NA (PORCINE) 5,000 UNITS/ML 1ML VIAL SQ SCH ×3 (06:30→23:01)
[2018-06-11 08:21] LABS: ANION GAP 5 MMOL/L (8-16); BLOOD UREA NITROGEN 24 mg/dL (7-18); CALCIUM 8.8 mg/dL (8.5-10.1); CHLORIDE 105 mmol/L (98-107); CO2 30 mmol/L (21-32); CREATININE 0.7 mg/dL (0.55-1.3); GLUCOSE,RANDOM 91 mg/dL (74-106); POTASSIUM 4.2 mmol/L (3.5-5.1); SODIUM 140 mmol/L (136-145)
--- NOTE | 2018-06-11 10:49 | PN ---
Progress Note (short form) - Note Progress Note: Feels overall better today. Denies shortness of breath or cough. Intake & Output 06/08/18 06/09/18 06/10/18 06/11/18 23:59 23:59 23:59 23:59 Intake Total 1390 720 450 Output Total 2500 400 Balance 1390 720 -2050 -400 Last Vital Signs Temp Pulse Resp BP Pulse Ox 98 F 86 18 156/76 95 06/11/18 06:00 06/11/18 06:00 06/11/18 06:00 06/11/18 06:00 06/10/18 21:00 Active Medications Acetaminophen (Tylenol -) 650 mg PO Q6HPO [facility] Last Admin: 06/11/18 06:29 Dose: 650 mg Alprazolam (Xanax -) 0.5 mg PO BID [facility] Last Admin: 06/10/18 22:22 Dose: 0.5 mg Diltiazem HCl (Cardizem Cd -) 240 mg PO DAILY [facility] Last Admin: 06/10/18 11:55 Dose: 240 mg Docusate Sodium (Colace -) 300 mg PO HS [facility] Last Admin: 06/10/18 22:21 Dose: 300 mg Ezetimibe (Zetia -) 10 mg PO DAILY [facility] Last Admin: 06/10/18 11:55 Dose: 10 mg Heparin Sodium (Porcine) (Heparin -) 5,000 unit SQ TID [facility] Last Admin: 06/11/18 06:30 Dose: 5,000 unit Polyethylene Glycol (Miralax (For Daily Use) -) 17 gm PO DAILY [facility] Last Admin: 06/10/18 11:56 Dose: 17 gm Sertraline HCl (Zoloft -) 25 mg PO DAILY [facility] Last Admin: 06/10/18 11:55 Dose: 25 mg Gen: NAD at rest Heart: RRR Lung: decreased breath sounds at the bases Abd: soft, nontender Ext: no edema 06/11/18 06:30 Sodium 140 Potassium 4.2 Chloride 105 Carbon Dioxide 30 Anion Gap 5 L BUN 24 H Creatinine 0.7 Creat Clearance w eGFR > 60 Random Glucose 91 Calcium 8.8 A/P s/p Fall Rib Fracture Reactive Pleural Effusion vs Small Hemothorax Atelectasis HTN Hyperlipidemia - pain control - incentive spirometry - O2 as needed - DVT prophylaxis Dr Newman Problem List - Problems (1) Hip pain, left Code(s): M25.552 - PAIN IN LEFT HIP (2) Pleural effusion Code(s): J90 - PLEURAL EFFUSION, NOT ELSEWHERE CLASSIFIED (3) Rib fracture Code(s): S22.39XA - FRACTURE OF ONE RIB, UNSP SIDE, INIT FOR CLOS FX Qualifiers: Encounter type: initial encounter Rib fracture type: single rib Fracture type: closed Laterality: left Qualified Code(s): S22.32XA - Fracture of one rib, left side, initial encounter for closed fracture (4) Abnormal chest xray Code(s): R93.8 - ABNORMAL FINDINGS ON DIAGNOSTIC IMAGING OF RISHABH * DO NOT USE * (5) Cognitive impairment Code(s): R41.89 - OTH SYMPTOMS AND SIGNS W COGNITIVE FUNCTIONS AND AWARENESS (6) Hyperlipidemia Code(s): E78.5 - HYPERLIPIDEMIA, UNSPECIFIED Qualifiers: Hyperlipidemia type: Pure hypercholesterolemia (7) Hypertension Code(s): I10 - ESSENTIAL (PRIMARY) HYPERTENSION Qualifiers: Hypertension type: essential hypertension Qualified Code(s): I10 - Essential (primary) hypertension (8) Vertigo Code(s): R42 - DIZZINESS AND GIDDINESS
[2018-06-11] MEDS: ALPRAZolam 0.25 MG TABLET PO SCH ×2 (10:56→23:01)
[2018-06-11] MEDS: EZETIMIBE 10 MG TABLET (FP) PO SCH (10:56)
[2018-06-11] MEDS: SERTRALINE HCL 25 MG TABLET (FP) PO SCH (10:56)
[2018-06-11] MEDS: POLYETHYLENE GLYCOL 3350 119 GM BTL PO SCH (10:56)
--- NOTE | 2018-06-11 12:00 | PN ---
Progress Note (short form) - Note Progress Note: Hospitalist to document today. Confusion more pronounced than at home. SNF post discharge. Oliva D/Neal for trial of urination.
--- NOTE | 2018-06-11 12:04 | PN ---
Teaching Attending Note Name of Resident: Camilla Georges ATTENDING PHYSICIAN STATEMENT I saw and evaluated the patient. I reviewed the resident's note and discussed the case with the resident. I agree with the resident's findings and plan as documented with exceptions below. SUBJECTIVE: Patient seen and examined. left sided chest wall pain better, denies any abdominal pain, aware of her oliva, reports limitation in ambulation currently given pain. OBJECTIVE: Vital Signs Period Temp Pulse Resp BP Sys/Barber Pulse Ox Last 24 Hr 97 F-98 F 75-91 18-18 113-156/64-76 95-95 Intake & Output 06/08/18 06/09/18 06/10/18 06/11/18 23:59 23:59 23:59 23:59 Intake Total 1390 720 450 Output Total 2500 400 Balance 1390 720 -2050 -400 General: sitting in bed in no acute distress Chest: left chest wall pain Abdomen:soft, NT, no suprapubic tenderness, Extremities: no edema Home Medications Medication Instructions Recorded Acetaminophen [Tylenol .Regular 650 mg PO Q4H PRN #0 tablet 06/22/14 Strength -] Cholecalciferol (Vitamin D3) 2,000 unit PO DAILY #0 tab 06/22/14 [Vitamin D3 -] Ezetimibe [Zetia -] 10 mg PO DAILY #30 tablet 06/15/15 Aspirin 81 mg PO DAILY 06/07/18 Diltiazem Cd [Cardizem Cd -] 240 mg PO DAILY 06/07/18 Sertraline HCl [Zoloft] 25 mg PO DAILY 06/07/18 Active Medications Acetaminophen (Tylenol -) 650 mg PO Q6HPO [facility] Last Admin: 06/11/18 06:29 Dose: 650 mg Alprazolam (Xanax -) 0.5 mg PO BID [facility] Last Admin: 06/11/18 10:56 Dose: 0.5 mg Diltiazem HCl (Cardizem Cd -) 240 mg PO DAILY [facility] Last Admin: 06/11/18 10:56 Dose: 240 mg Docusate Sodium (Colace -) 300 mg PO HS [facility] Last Admin: 06/10/18 22:21 Dose: 300 mg Ezetimibe (Zetia -) 10 mg PO DAILY [facility] Last Admin: 06/11/18 10:56 Dose: 10 mg Heparin Sodium (Porcine) (Heparin -) 5,000 unit SQ TID [facility] Last Admin: 06/11/18 06:30 Dose: 5,000 unit Polyethylene Glycol (Miralax (For Daily Use) -) 17 gm PO DAILY [facility] Last Admin: 06/11/18 10:56 Dose: 17 gm Sertraline HCl (Zoloft -) 25 mg PO DAILY [facility] Last Admin: 06/11/18 10:56 Dose: 25 mg Laboratory Results - last 24 hr 06/11/18 06:30 Sodium 140 Potassium 4.2 Chloride 105 Carbon Dioxide 30 Anion Gap 5 L BUN 24 H Creatinine 0.7 Creat Clearance w eGFR > 60 Random Glucose 91 Calcium 8.8 ASSESSMENT AND PLAN: 88 yof with PMHx of HTN, HLD, GERD, Chronic low back pain, Vertigo admitted with fall, left right fracture with small left pleural effusion, concern for right sided weakness while working with PT. -Mechanical fall -Left rib fracture with small left pleural effusion -Concern for right hemiparesis,with PT, ?acute vs chronic, r/o CVA -Urinary retention, suspect from poor ambulationg+/- constipation -HTN -HLD -GERD -Chronic low back pain -Vertigo Plan: Oliva placed, bowel regimen, encourage PT Voiding trial once ambulatory u/a neg. MRI brain results noted. 2D echo/carotid duplex noted. PT eval noted. Pulmonary input appreciated, Incentive spirometry, pain control Diltiazem/zetia/serteraline/xanax DVTPPx Heparin Dispo for SNF pending bed availability. Plan discussed with patient and nursing in detail, all questions answered.
--- NOTE | 2018-06-11 19:53 | PN ---
Physical Exam: SUBJECTIVE: Patient seen and examined by me at bedside. No acute events overnight Reports she wants to go to the group home Reports left sided chest wall pain is better than yesterday Otherwise, denies any nausea, vomiting, diarrhea, abdominal pain, palpitations, shortness of breath, headaches. OBJECTIVE: Vital Signs Period Temp Pulse Resp BP Sys/Barber Pulse Ox Last 24 Hr 97.6 F-98.1 F 75-86 18-20 118-156/70-80 95-95 GENERAL: The patient is awake, alert, in no acute distress. EYES: Sclera anicteric, conjunctiva clear. No ptosis. ENT: Oropharynx clear without exudates, moist mucous membranes. LUNGS: Breath sounds equal, clear to auscultation bilaterally, no wheezes, no crackles, no accessory muscle use. HEART: Left wall tenderness. Regular rate and rhythm, S1, S2 without murmur, rub or gallop. ABDOMEN: Soft, nontender, nondistended, normoactive bowel sounds EXTREMITIES: No edema. NEUROLOGICAL: Cranial nerves II through XII grossly intact. Normal speech Laboratory Results 06/11/18 06:30 Active Medications Generic Name Dose Route Start Last Admin Trade Name Freq PRN Reason Stop Dose Admin Acetaminophen 650 mg 06/07/18 12:00 06/11/18 17:14 Tylenol - PO 650 mg Q6HPO NATALIE Administration Alprazolam 0.5 mg 06/07/18 22:00 06/11/18 10:56 Xanax - PO 0.5 mg BID NATALIE Administration Diltiazem HCl 240 mg 06/07/18 16:15 06/11/18 10:56 Cardizem Cd - PO 240 mg DAILY NATALIE Administration Docusate Sodium 300 mg 06/07/18 22:00 06/10/18 22:21 Colace - PO 300 mg HS NATALIE Administration Ezetimibe 10 mg 06/08/18 10:00 06/11/18 10:56 Zetia - PO 10 mg DAILY NATALIE Administration Heparin Sodium (Porcine) 5,000 unit 06/08/18 22:00 06/11/18 15:22 Heparin - SQ 5,000 unit TID NATALIE Administration Polyethylene Glycol 17 gm 06/08/18 10:00 06/11/18 10:56 Miralax (For Daily Use) - PO 17 gm DAILY [facility]IE Administration Sertraline HCl 25 mg 06/08/18 10:00 06/11/18 10:56 Zoloft - PO 25 mg DAILY [facility]IE Administration ASSESSMENT/PLAN: Patient is an 88 year old female who presented s/p fall with left right rib fracture and small left pleural effusion. Patient admitted for further monitoring and management. S/P Mechanical Fall w/ Small Right Rib Fracture -Continue pain control with Tylenol PRN -Fall risks -Incentive spirometry -O2 as needed Urinary Retention -Possibly secondary to limited ambulation and Constipation -Aggressive PT and then PT as outpatient -Voiding trials once ambulatory -Maintain Oliva -Strict I&O's -Urinalysis negative Constipation -Bowel regimen with Miralax and colace Possible Right Hemiparesis -Rule out stroke -MRI revealed no acute pathology HTN -Continue Diltiazem 240mg daily -Continue to monitor BP HLD -Continue Zetia 10mg daily Chronic Low Back Pain -Continue with Tylenol PRN Anxiety/Depression -Continue Xanax 0.5mg BID and Zoloft 25mg daily F/E/N -On no fluids -Electrolytes wnl -Regular diet Prophylaxis -Heparin 5000unts SQ TID -No GI required Disposition -Full code -SNF pending Camilla Georges [id number] Visit type - Emergency Visit Emergency Visit: Yes ED Registration Date: 06/07/18 Care time: The patient presented to the Emergency Department on the above date and was hospitalized for further evaluation of their emergent condition. - New Patient This patient is new to me today: Yes Date on this admission: 06/11/18 - Critical Care Critical Care patient: No
[2018-06-11] MEDS: DOCUSATE SODIUM 100 MG CAPSULE (FP) PO SCH (23:01)
[2018-06-12 06:00] VITALS: TEMP 97.4
[2018-06-12] MEDS: HEPARIN NA (PORCINE) 5,000 UNITS/ML 1ML VIAL SQ SCH (06:03)
[2018-06-12] MEDS: ACETAMINOPHEN 325 MG TABLET (FP) PO SCH (06:05)
[2018-06-12 08:26] LABS: ANION GAP 10 MMOL/L (8-16); BLOOD UREA NITROGEN 18 mg/dL (7-18); CALCIUM 9.7 mg/dL (8.5-10.1); CHLORIDE 108 mmol/L (98-107); CO2 28 mmol/L (21-32); CREATININE 0.7 mg/dL (0.55-1.3); GLUCOSE,RANDOM 91 mg/dL (74-106); POTASSIUM 3.9 mmol/L (3.5-5.1); SODIUM 146 mmol/L (136-145)
--- NOTE | 2018-06-12 09:08 | DS ---
Physical Exam: SUBJECTIVE: Patient seen and examined, pain better, no new complaints. OBJECTIVE: Vital Signs Period Temp Pulse Resp BP Sys/Barber Pulse Ox Last 24 Hr 97.4 F-98.1 F 63-89 18-20 118-150/71-80 PHYSICAL EXAM GENERAL: The patient is awake, alert, oriented, in no acute distress. HEAD: Normal with no signs of trauma. EYES: PERRL, extraocular movements intact, sclera anicteric, conjunctiva clear. No ptosis. ENT: Ears normal, nares patent, oropharynx clear without exudates, moist mucous membranes. NECK: Trachea midline, full range of motion, supple. LUNGS: Breath sounds equal, clear to auscultation bilaterally, no wheezes, no crackles, no accessory muscle use. , left lower chest wall tenderness HEART: Regular rate and rhythm, S1, S2 ABDOMEN: Soft, nontender, nondistended, normoactive bowel sounds, no guarding, no rebound EXTREMITIES: 2+ pulses, warm, well-perfused, no edema. Neuro: AAOx3, facial symmetry, tongue midline, speech normal, no pronator drift , power generalized 4/5, LLE limited by pain in left chest wall, unchanged exam LABS Laboratory Results - last 24 hr Laboratory Tests 06/07/18 06/07/18 06/07/18 08:33 08:33 08:33 WBC 8.5 RBC 4.68 Hgb 14.1 Hct 41.2 MCV 88.1 MCH 30.1 MCHC 34.1 RDW 14.5 Plt Count 225 MPV 9.0 Absolute Neuts (auto) 5.3 Neutrophils % 62.3 Lymphocytes % 27.4 Monocytes % 8.5 Eosinophils % 1.1 Basophils % 0.7 Nucleated RBC % 0 PT with INR 10.40 INR 0.88 PTT (Actin FS) 25.1 L Sodium 143 Potassium 4.4 Chloride 110 H Carbon Dioxide 28 Anion Gap 4 L BUN 20 H Creatinine 0.7 Creat Clearance w eGFR > 60 Random Glucose 93 Calcium 9.2 Magnesium 2.4 Total Bilirubin 0.4 AST 17 ALT 24 Alkaline Phosphatase 89 Creatine Kinase 80 Troponin I < 0.02 Total Protein 6.2 L Albumin 3.6 Urine Color Urine Appearance Urine pH Ur Specific [place] Urine Protein Urine Glucose (UA) Urine Ketones Urine Blood Urine Nitrite Urine Bilirubin Urine Urobilinogen Ur Leukocyte Esterase Blood Type Antibody Screen 06/07/18 06/08/18 06/08/18 08:33 06:30 06:30 WBC 8.6 RBC 4.57 Hgb 13.8 Hct 40.8 MCV 89.4 MCH 30.2 MCHC 33.8 RDW 14.3 Plt Count 216 MPV 8.7 Absolute Neuts (auto) 5.0 Neutrophils % 58.4 Lymphocytes % 28.6 Monocytes % 10.3 H Eosinophils % 2.2 D Basophils % 0.5 Nucleated RBC % 0 PT with INR INR PTT (Actin FS) Sodium 138 Potassium 4.1 Chloride 106 Carbon Dioxide 27 Anion Gap 5 L BUN 22 H Creatinine 0.7 Creat Clearance w eGFR > 60 Random Glucose 90 Calcium 8.8 Magnesium Total Bilirubin 0.6 AST 16 ALT 20 Alkaline Phosphatase 86 Creatine Kinase Troponin I Total Protein 5.9 L Albumin 3.3 L Urine Color Urine Appearance Urine pH Ur Specific [place] Urine Protein Urine Glucose (UA) Urine Ketones Urine Blood Urine Nitrite Urine Bilirubin Urine Urobilinogen Ur Leukocyte Esterase Blood Type AB POSITIVE Antibody Screen Negative 06/09/18 06/09/18 06/10/18 07:30 07:30 04:00 WBC 7.8 RBC 4.82 Hgb 14.3 Hct 43.2 MCV 89.6 MCH 29.8 MCHC 33.2 RDW 14.5 Plt Count 227 MPV 8.6 Absolute Neuts (auto) 4.6 Neutrophils % 59.1 Lymphocytes % 29.0 Monocytes % 8.3 Eosinophils % 2.8 Basophils % 0.8 Nucleated RBC % 0 PT with INR INR PTT (Actin FS) Sodium 142 Potassium 4.0 Chloride 107 Carbon Dioxide 28 Anion Gap 8 BUN 17 Creatinine 0.7 Creat Clearance w eGFR > 60 Random Glucose 83 Calcium 9.1 Magnesium Total Bilirubin AST ALT Alkaline Phosphatase Creatine Kinase Troponin I Total Protein Albumin Urine Color Yellow Urine Appearance Clear Urine pH 5.0 D Ur Specific [place] 1.018 Urine Protein Negative Urine Glucose (UA) Negative Urine Ketones Negative Urine Blood Negative Urine Nitrite Negative Urine Bilirubin Negative Urine Urobilinogen Negative Ur Leukocyte Esterase Negative Blood Type Antibody Screen 06/11/18 06/12/18 06:30 06:45 WBC RBC Hgb Hct MCV MCH MCHC RDW Plt Count MPV Absolute Neuts (auto) Neutrophils % Lymphocytes % Monocytes % Eosinophils % Basophils % Nucleated RBC % PT with INR INR PTT (Actin FS) Sodium 140 146 H Potassium 4.2 3.9 Chloride 105 108 H Carbon Dioxide 30 28 Anion Gap 5 L 10 BUN 24 H 18 Creatinine 0.7 0.7 Creat Clearance w eGFR > 60 > 60 Random Glucose 91 91 Calcium 8.8 9.7 Magnesium Total Bilirubin AST ALT Alkaline Phosphatase Creatine Kinase Troponin I Total Protein Albumin Urine Color Urine Appearance Urine pH Ur Specific [place] Urine Protein Urine Glucose (UA) Urine Ketones Urine Blood Urine Nitrite Urine Bilirubin Urine Urobilinogen Ur Leukocyte Esterase Blood Type Antibody Screen CT C-spine Findings. No acute fracture, compression deformity, of subluxation is seen. Normal relationship of odontoid to anterior arch of C1. The predental space is narrowed. Intact odontoid. Symmetrical articulation of atlantoaxial and occipito atlantal joints. Normal height of vertebral bodies. Loss of interval disc space height noted at multiple levels with degenerative endplate sclerosis, anterior spondylosis, mild posterior discal osteophytes. Neural foramina narrowing observed at several levels attributed to the facet joint arthropathy, osteoarthritis of uncovertebral joints. Normal alignment of the facet joints. Normal alignment of the spinous processes. Patent airways. There is no evidence of prevertebral soft tissue swelling. The intraspinal contents cannot be adequately evaluated due to the beam hardening artifacts. The airways are patent. No evidence of prevertebral soft tissue swelling. The lung apices are clear. Enlarged right lobe of the thyroid gland with hypodense nodules Impression. No evidence of acute fracture, compression deformities, subluxation , prevertebral soft tissue swelling. Intact odontoid. Multilevel loss of interval disc space height, with degenerative endplate sclerosis, posterior para discal osteophytes. Neural foramina narrowing - osteoarthritis of uncovertebral joints, facet joint arthropathy. Enlarged right lobe of the thyroid gland with hypodense nodules Reported By: Al Garcia MD 06/07/[address] brain; The head was tilted during the acquisition of images. Serial axial images of the brain were obtained from foramen magnum to the cranial vertex without intravenous contrast. The study was supplemented with computer- generated coronal and sagittal reconstruction images. There is no evidence of acute subarachnoid hemorrhage, acute intra-axial or extra-axial fluid collection consistent with subdural or epidural hematoma. No mass effect, midline shift, acute territorial ischemic changes, herniation is present. Loss of volume of the brain parenchyma with involutional changes. No evidence of hydrocephalus. Intracranial vascular calcifications are noted. No evidence of tonsillar ectopia. Examination of the bone windows show no fracture. The visualized paranasal sinuses and mastoid air cells are clear. Impression. No evidence of acute intracranial hemorrhage, midline shift, mass effect, or skull fracture. No CT evidence of acute territorial ischemic changes. Reported By: Al Garcia MD 06/07/[address] chest: The study is markedly limited without the use of any contrast material. There is a nondisplaced fracture of the lateral left ninth rib. Associated with the fracture is a small pleural effusion which may represent blood. Minimal atelectatic changes are also seen within the left lower lobe. No additional rib fractures are identified. There is no evidence of a right pleural effusion. Examination of the mediastinum demonstrates right thyroid nodularity. Sonographic follow-up is recommended. There is no evidence of mediastinal masses , fluid collections or lymphadenopathy. The heart is not enlarged. The lung hurst are free of pulmonary masses or areas of acute consolidation. The liver, spleen, pancreas, right adrenal gland and kidneys demonstrate no significant abnormalities. There is a 2.1 cm cyst within the left lobe of the liver. There is a 4.4 cm cyst within the lower pole of the left kidney. There is a 2.5 cm hypodense mass within the left adrenal gland consistent with a benign adenoma. There is no definite evidence of intra-abdominal organ injury, although without the use of intravenous contrast this cannot be completely excluded. There is no evidence of intra-abdominal or retroperitoneal lymphadenopathy or fluid collections. Examination of the pelvis demonstrates no evidence of pelvic masses , fluid collections or lymphadenopathy. There is no evidence of additional fractures or acute bony abnormalities. There are sclerotic changes within several thoracic and lumbar vertebral bodies. The etiology of these changes is uncertain. They are unchanged since a prior study of 04/30/2012 and therefore considered benign in nature. IMPRESSION: 1. Nondisplaced fracture left ninth rib. 2. Small left pleural effusion that may represent a hemothorax related to the rib fracture. 3. Right thyroid nodularity. 4. Left adrenal nodule consistent with benign adenoma. 5. No additional evidence of acute pathology within the chest, abdomen or pelvis. Reported By: Cuauhtemoc Harding MD 06/07/[address] A/P: The study is markedly limited without the use of any contrast material. There is a nondisplaced fracture of the lateral left ninth rib. Associated with the fracture is a small pleural effusion which may represent blood. Minimal atelectatic changes are also seen within the left lower lobe. No additional rib fractures are identified. There is no evidence of a right pleural effusion. Examination of the mediastinum demonstrates right thyroid nodularity. Sonographic follow-up is recommended. There is no evidence of mediastinal masses , fluid collections or lymphadenopathy. The heart is not enlarged. The lung hurst are free of pulmonary masses or areas of acute consolidation. The liver, spleen, pancreas, right adrenal gland and kidneys demonstrate no significant abnormalities. There is a 2.1 cm cyst within the left lobe of the liver. There is a 4.4 cm cyst within the lower pole of the left kidney. There is a 2.5 cm hypodense mass within the left adrenal gland consistent with a benign adenoma. There is no definite evidence of intra-abdominal organ injury, although without the use of intravenous contrast this cannot be completely excluded. There is no evidence of intra-abdominal or retroperitoneal lymphadenopathy or fluid collections. Examination of the pelvis demonstrates no evidence of pelvic masses , fluid collections or lymphadenopathy. There is no evidence of additional fractures or acute bony abnormalities. There are sclerotic changes within several thoracic and lumbar vertebral bodies. The etiology of these changes is uncertain. They are unchanged since a prior study of 04/30/2012 and therefore considered benign in nature. IMPRESSION: 1. Nondisplaced fracture left ninth rib. 2. Small left pleural effusion that may represent a hemothorax related to the rib fracture. 3. Right thyroid nodularity. 4. Left adrenal nodule consistent with benign adenoma. 5. No additional evidence of acute pathology within the chest, abdomen or pelvis. Chest Xray Demineralized osseous structures. Chronic degenerative changes are observed at L4-5 L5-S1. Symmetrical articulation of the hip joints. Symmetrical bony trabecular pattern is seen in the proximal femur bilaterally. No displaced fracture is seen. Sclerosis of the symphysis pubis. Impression. No acute bony abnormalities are seen. Reported By: Al Garcia MD 06/07/18 1010 Carotid Duplex: Bilateral carotid Doppler ultrasound Grayscale, pulsed Doppler and color Doppler interrogation of both carotid and both vertebral arteries was performed. The right common carotid, internal and external external carotid artery were identified with a peak systolic velocity of 90, 35 and 68 cm/sec, respectively. The left common carotid, internal and external carotid artery were identified with a peak systolic velocity of 55, 40 and 67 cm/sec, respectively. Flow in the physiologic direction was documented in both vertebral arteries. Impression: Intimal thickening and small plaques at the common carotid bifurcation/bulb, bilaterally without evidence of hemodynamically significant stenosis. Reported By: Te Fishman MD 06/08/18 1417 MRI brain: The midline structures unremarkable. On the T2 and FLAIR weighted images there are ischemic changes in the white matter of both cerebral hemispheres sequela most probably to long-standing hypertension or small vessel atherosclerosis. Diffusion weighted images unremarkable. No evidence acute infarction. Ischemic changes in the ritu. 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 Moderate loss of volume both cerebral hemisphere. Impression: Extensive ischemic changes in the ritu and in the white matter of both cerebral hemisphere sequela most probably to long-standing hypertension or small vessel atherosclerosis. No evidence acute infarction. No evidence acute intracerebral hemorrhage or subdural fluid collection. There is moderate dilatation of lateral ventricles with no evidence of normal pressure hydrocephalus. Small 1 cm meningioma right cerebellopontine angle without mass effect on the right cerebellar hemispheres. Reported By: Claudio Azul MD 06/10/18 0984 2D echo: EF 55%, mild MR/TR, LV systolic function normal HOSPITAL COURSE: Date of Admission:06/07/18 Date of Discharge: 06/12/18 Minutes to complete discharge: 36 Discharge Summary Reason For Visit: FRACTURE RIB,FALL,LEFT HIP PAIN Current Active Problems Fall (Acute) Fall from ground level (Acute) Hemiparesis (Acute) Hip pain, left (Acute) Pleural effusion (Acute) Rib fracture (Acute) Hospital Course: 88 year old female comes in with a mechanical fall at home. Pt reports she was cleaning, she bent down which caused her to fall, reported 4 days prior to admission. patient had extensive trauma work up which showed left ninth rib fracture with small left pleural effusion. She was evaluated by pulmonary with no additional intervention. She was maintained on incentive spirometry and pain control. She had intermittent episodes of confusion. Concerns for right sided weakness were raised by physical therapy. She received MRI brain that was negative for concerns. Also had 2D echo and carotid duplex with results above. She was also noted with urinary retention, suspected from minimal ambulation, refusing to void while in bed and constipation. She has cortes catheter placed and will need voiding trial in 2-3 days as patient more ambulatory at the rehab and outpatient follow up with urology. She was continued on diltiazem, zetia, sertraline. She was transiently on xanax for anxity. She was incidentally found with thyroid nodularity which will need outpatient follow up and benign adrenal adenoma. Condition: Good - Instructions Diet, Activity, Other Instructions: Incentive spirometry every hour when awake. Encourage ambulation. Continue with bowel regimen. Voiding trial at [facility] once patient ambulatory over next 2-3 days. Outpatient urology follow up if ongoing retention. FOLLOW UP: PCP In 1 week Urology in 1 week Voiding trial in 2-3 days at [facility] when ambulatory. Follow up with PCP for thyroid nodularity noted incidentally on the CT scan. Call 911 or come to ED if any new pain, fevers,chills, trouble breathing, or any new concerns. Referrals: Jay Montero MD [Primary Care Provider] - [facility]position[facility] - Home Medications Comprehensive Discharge Medication List: Ambulatory Orders Acetaminophen [Tylenol .Regular Strength -] 650 mg PO Q4H PRN #0 tablet Cholecalciferol (Vitamin D3) [Vitamin D3 -] 2,000 unit PO DAILY #0 tab 06/22/14 Ezetimibe [Zetia -] 10 mg PO DAILY #30 tablet 06/15/15 Aspirin 81 mg PO DAILY 06/07/18 Diltiazem Cd [Cardizem Cd -] 240 mg PO DAILY 06/07/18 Sertraline HCl [Zoloft] 25 mg PO DAILY 06/07/18 Docusate Sodium [Colace -] 300 mg PO HS capsule 06/12/18 Polyethylene Glycol 3350 [Miralax 119 gm Btl -] 17 gm PO DAILY bottle 06/12/18 This patient is new to me today: No Emergency Visit: Yes ED Registration Date: 06/07/18 Care time: The patient presented to the Emergency Department on the above date and was hospitalized for further evaluation of their emergent condition. Critical Care patient: No - Discharge Referral Referred to [facility].: No
[2018-06-12] MEDS: POLYETHYLENE GLYCOL 3350 119 GM BTL PO SCH (09:33)
[2018-06-12] MEDS: SERTRALINE HCL 25 MG TABLET (FP) PO SCH (09:33)
[2018-06-12] MEDS: EZETIMIBE 10 MG TABLET (FP) PO SCH (09:33)
--- NOTE | 2018-06-12 10:49 | PN ---
Progress Note (short form) - Note Progress Note: No acute events overnight. Denies shortness of breath or CP. Intake & Output 06/09/18 06/10/18 06/11/18 06/12/18 23:59 23:59 23:59 23:59 Intake Total 720 450 805 Output Total 2500 1500 1300 Balance 720 -5840 -695 -1300 Last Vital Signs Temp Pulse Resp BP Pulse Ox 97.4 F L 63 20 136/75 95 06/12/18 05:59 06/12/18 05:59 06/12/18 05:59 06/12/18 05:59 06/11/18 09:00 Active Medications Acetaminophen (Tylenol -) 650 mg PO Q6HPO [facility] Last Admin: 06/12/18 06:05 Dose: 650 mg Diltiazem HCl (Cardizem Cd -) 240 mg PO DAILY [facility] Last Admin: 06/12/18 09:33 Dose: 240 mg Docusate Sodium (Colace -) 300 mg PO HS [facility] Last Admin: 06/11/18 23:01 Dose: 300 mg Ezetimibe (Zetia -) 10 mg PO DAILY [facility] Last Admin: 06/12/18 09:33 Dose: 10 mg Heparin Sodium (Porcine) (Heparin -) 5,000 unit SQ TID [facility] Last Admin: 06/12/18 06:03 Dose: Not Given Polyethylene Glycol (Miralax (For Daily Use) -) 17 gm PO DAILY [facility] Last Admin: 06/12/18 09:33 Dose: 17 gm Sertraline HCl (Zoloft -) 25 mg PO DAILY [facility] Last Admin: 06/12/18 09:33 Dose: 25 mg Gen: NAD at rest Heart: RRR Lung: decreased breath sounds at the bases Abd: soft, nontender Ext: no edema Laboratory Results - last 24 hr 06/12/18 06:45 Sodium 146 H Potassium 3.9 Chloride 108 H Carbon Dioxide 28 Anion Gap 10 BUN 18 Creatinine 0.7 Creat Clearance w eGFR > 60 Random Glucose 91 Calcium 9.7 A/P s/p Fall Rib Fracture Reactive Pleural Effusion vs Small Hemothorax Atelectasis HTN Hyperlipidemia - pain control - incentive spirometry - O2 as needed - DVT prophylaxis - D/C planning to SNF Dr Newman Problem List - Problems (1) Hip pain, left Code(s): M25.552 - PAIN IN LEFT HIP (2) Pleural effusion Code(s): J90 - PLEURAL EFFUSION, NOT ELSEWHERE CLASSIFIED (3) Rib fracture Code(s): S22.39XA - FRACTURE OF ONE RIB, UNSP SIDE, INIT FOR CLOS FX Qualifiers: Encounter type: initial encounter Rib fracture type: single rib Fracture type: closed Laterality: left Qualified Code(s): S22.32XA - Fracture of one rib, left side, initial encounter for closed fracture (4) Abnormal chest xray Code(s): R93.8 - ABNORMAL FINDINGS ON DIAGNOSTIC IMAGING OF RISHABH * DO NOT USE * (5) Cognitive impairment Code(s): R41.89 - OTH SYMPTOMS AND SIGNS W COGNITIVE FUNCTIONS AND AWARENESS (6) Hyperlipidemia Code(s): E78.5 - HYPERLIPIDEMIA, UNSPECIFIED Qualifiers: Hyperlipidemia type: Pure hypercholesterolemia (7) Hypertension Code(s): I10 - ESSENTIAL (PRIMARY) HYPERTENSION Qualifiers: Hypertension type: essential hypertension Qualified Code(s): I10 - Essential (primary) hypertension (8) Vertigo Code(s): R42 - DIZZINESS AND GIDDINESS
[2018-06-12 10:57] VITALS: BP 160/86; PULSE 92
== END 2018-06-12 11:23 | DRG 206 ==
LOC: JER 05:08 → JERBED 10:20 → J5S 14:39
PROVIDERS: ADMIT Hospitalist; ATTEND Hospitalist
DX: S22.32XA Fracture of one rib, left side, initial encounter for closed fracture (principal); J90 Pleural effusion, not elsewhere classified; J98.11 Atelectasis; G81.91 Hemiplegia, unspecified affecting right dominant side; I10 Essential (primary) hypertension; E78.5 Hyperlipidemia, unspecified; K59.00 Constipation, unspecified; R33.9 Retention of urine, unspecified; W19.XXXA Unspecified fall, initial encounter; Y93.9 Activity, unspecified; Y92.89 Other specified places as the place of occurrence of the external cause; Y99.9 Unspecified external cause status; F41.8 Other specified anxiety disorders; M54.5 Low back pain; K21.9 Gastro-esophageal reflux disease without esophagitis
CPT/HCPCS: 36415; 70450-TC; 70551-TC; 71045-TC-FY; 71101-TC-LT-FY; 71250-TC; 72125-TC; 73523-TC-FY; 74176-TC; 80048; 80053; 81003; 82550; 83735; 84484; 85025; 85610; 85730; 86850; 86900; 86901; 93005; 93010; 93306-TC; 93880-TC; 94010; 97116-GP; 97162-GP; 99282-25; J0131; J1644

== ENCOUNTER 2018-08-01 17:50 | Emergency (ER) | payer OTHER ==
[2018-08-01 18:09] VITALS: BMI 20.5
--- NOTE | 2018-08-01 18:51 | PDOC ---
History of Present Illness - General Chief Complaint: Injury Stated Complaint: FALL - History of Present Illness Initial Comments: Genevieve Maldonado is an 88yo woman with a PMH of HTN, HLD, and dementia who presents from [facility] after a fall this afternoon. Ms Maldonado is a poor historian due to her dementia. Her son, at bedside, was not present for the event and has been unable to speak with anyone from [facility] who may have noticed. Ms Maldonado states that she was at [employer] today, got up to leave, and then says she noticed she was walking and wasn't sure how she got there. She also states that a few minutes later, there was a similar episode where she was walking in the hallway and then fell. She says she remembers feeling annoyed because someone was in front of her before the fall. It is unclear whether she had a mechanical fall, syncopized, or had another cause of her fall. Per her son, Ms Maldonado is unreliable and the events relayed may not be accurate. He says she had a similar episode, which she also did not remember, in May and was hospitalized with a very thorough workup, though he is not sure exactly what tests were done. Past History - Past Medical History Allergies/Adverse Reactions: Allergies Allergy/AdvReac Type Severity Reaction Status Date / Time Iodinated Contrast- Oral and Allergy Severe Verified 08/01/18 18:07 IV Dye [IV Dye, Iodine Containing Contrast ] meperidine HCl [From Demerol] Allergy Severe Vomiting Verified 08/01/18 18:07 morphine Allergy Severe Vomiting Verified 08/01/18 18:07 pitavastatin calcium Allergy Verified 08/01/18 18:07 [From Livalo] venom-honey bee Allergy Verified 08/01/18 18:07 [bee venom (honey bee)] Home Medications: Ambulatory Orders Acetaminophen [Tylenol .Regular Strength -] 650 mg PO Q4H PRN #0 tablet Cholecalciferol (Vitamin D3) [Vitamin D3 -] 2,000 unit PO DAILY #0 tab 06/22/14 Ezetimibe [Zetia -] 10 mg PO DAILY #30 tablet 06/15/15 Aspirin 81 mg PO DAILY 06/07/18 Diltiazem Cd [Cardizem Cd -] 240 mg PO DAILY 06/07/18 Sertraline HCl [Zoloft] 25 mg PO DAILY 06/07/18 Docusate Sodium [Colace -] 300 mg PO HS capsule 06/12/18 Polyethylene Glycol 3350 [Miralax 119 gm Btl -] 17 gm PO DAILY bottle 06/12/18 Anemia: No Asthma: No Cancer: No Cardiac Disorders: Yes (MD, cardiac cath; MVP) CVA: No COPD: No CHF: No Dementia: No Diabetes: No GI Disorders: No Disorders: No HTN: Yes Hypercholesterolemia: Yes Liver Disease: No Seizures: No Thyroid Disease: Yes (hypo) - Surgical History Abdominal Surgery: Yes Appendectomy: Yes Cardiac Surgery: No Cholecystectomy: No Lung Surgery: No Neurologic Surgery: No Orthopedic Surgery: No - Suicide/Smoking/Psychosocial Hx Smoking Status: No Smoking History: Never smoked Have you smoked in the past 12 months: No Number of Cigarettes Smoked Daily: 0 Hx Alcohol Use: No Drug/Substance Use Hx: No Substance Use Type: None Hx Substance Use Treatment: No Review of Systems - Review of Systems Able to Perform ROS?: No (Has dementia, denied all ) *Physical Exam - Vital Signs Last Vital Signs Temp Pulse Resp BP Pulse Ox 97.8 F 87 16 142/78 100 08/01/18 18:08 08/01/18 18:08 08/01/18 18:08 08/01/18 18:08 08/01/18 18:08 - Physical Exam Comments: General: Comfortable, no acute distress, appears stated age HEENT: Atraumatic. PERRL, EOMI, MMM, voice normal, normal neck ROM. Cards: RRR, no murmur appreciated Pulm: Comfortable on room air, clear to auscultation bilaterally Abd: Soft, nontender, nondistended : No CVA tenderness Ext: L hip and proximal lateral thigh TTP. No pelvic instability, no palpable deformity. Strength intact in BLE. No LE edema. ROM intact. Vasc: Extremities WWP. Skin: Normal color, no rashes or lesions Neuro: A&Ox3, CN grossly intact, normal speech, motor/sensory grossly intact and symmetric Psych: Mood appropriate to situation Moderate Sedation - Procedure Monitoring Vital Signs: Procedure Monitoring Vital Signs Temperature 97.8 F 08/01/18 18:08 Pulse Rate 87 08/01/18 18:08 Respiratory Rate 16 08/01/18 18:08 Blood Pressure 142/78 08/01/18 18:08 O2 Sat by Pulse Oximetry (%) 100 08/01/18 18:08 ED Treatment Course - LABORATORY CBC & Chemistry Diagram: 08/01/18 20:15 08/01/18 20:15 Medical Decision Making - Medical Decision Making 08/01/18 20:10 Genevieve Maldonado is an 88yo woman with a PMH of HTN, HLD, and dementia who presents from [facility] after a fall this afternoon. She is unable to clearly explain what happened, and her son did not witness the fall (at bedside). She had a similar episode in May. - Reporting L hip pain. Will xray. - Will obtain CT head/c-spine given unwitnessed fall and age. She does not know if she hit her head. - Possible syncope, though unclear story. CBC, chemistry, trop, EKG, CXR to evaluate for infection, electrolyte abnormalities, arrhythmia - UA, culture to rule out UTI - Already had MRI, carotid dopplers, full syncope workup in May. Likely no need to repeat now. 08/01/18 21:10 - CBC unremarkable. Chemistry pending - UA positive for UTI. Will start abx here 08/01/18 22:28 - CT to be completed. Patient signed out to Dr Knowles for remainder of ED care. Updated pt's son. Discussed with Dr Mejia. Fanny Cruz PGY1 *DC/Admit/Observation/Transfer Diagnosis at time of Disposition: Fall from ground level - Referrals - Patient Instructions - Post Discharge Activity
[2018-08-01] MEDS ORDERED: ACETAMINOPHEN 325 MG TABLET (FP) PO ONE (19:59)
[2018-08-01] MEDS ORDERED: ACETAMINOPHEN 325 MG TABLET (FP) ONE (20:06)
--- NOTE | 2018-08-01 20:12 | PDOC ---
Attending Attestation - HPI HPI: 08/01/18 20:37 Patient is an 88 year old female with a significant past medical history of HTN , HLD, GERD, Anxiety, and Dementia, who presents to the ED with complaints of left hip pain that began earlier this afternoon. As per [facility] staff, patient experienced an unwitnessed fall, they report sending the patient into the ED for further evaluation after she began to express increased left hip pain. As per patient she reports experiencing a syncopal episode this afternoon stating she was walking and became annoyed at another individual before she suddenly fell and lost consciousness. Patient is noted to be a Poor Historian due to dementia. Denies chest pain, Sob. Denies nausea, vomiting. Denies fevers, chills. Denies head pain, blurred vision. Denies contact with sick individuals, out of state travelling. Denies any other symptoms. Allergies: Iodinated Contrast, Meperidine HCL. Social history: From [facility], No smoking. No alcohol. No illicit drugs. Surgical history: Appendectomy (benign breast tumor S/P surgery), Hysterectomy PMD: Dr. Montero - Physicial Exam PE: 08/01/18 20:43 Agree with residents Physical Exam. <Al Lema - Last Filed: 08/01/18 20:37> - Resident Resident Name: Fanny Cruz - ED Attending Attestation I have performed the following: I have examined & evaluated the patient, The case was reviewed & discussed with the resident, I agree w/resident's findings & plan - Medical Decision Making 08/01/18 21:15 88-year-old female status post unwitnessed fall with various inconsistent complaints Plan for labs, EKG and imaging including CT scan of the head cervical spine as well as chest and pelvic/hip x-rays Urinalysis consistent with a urinary tract infection Rocephin 1 g IV Likely discharged home pending results <Rochelle Mejia - Last Filed: 08/01/18 21:16>
[2018-08-01 20:32] LABS: BASO % 0.7 % (0-2.0); EOS % 2.5 % (0-4.5); HEMATOCRIT 38.6 % (32.4-45.2); HEMOGLOBIN 13.3 GM/dL (10.7-15.3); LYMPH % 24.7 % (8-40); MCH 30.5 pg (25.7-33.7); MCHC 34.4 g/dl (32.0-36.0); MEAN CELL VOLUME 88.8 fl (80-96); MEAN PLT VOLUME 9.2 fl (7.5-11.1); NEUT % 61.1 % (42.8-82.8); PLATELET COUNT 179 K/MM3 (134-434); RBC 4.35 M/mm3 (3.60-5.2); RDW 15.4 % (11.6-15.6); WHITE BLOOD COUNT 9.1 K/mm3 (4.0-10.0)
[2018-08-01 20:53] LABS: URINE APPEARANCE CLOUDY; URINE BILIRUBIN NEGATIVE (<2.0 mg/dL); URINE COLOR YELLOW; URINE GLUCOSE (UA) NEGATIVE (NEGATIVE); URINE KETONE NEGATIVE (NEGATIVE); URINE LEUK ESTERASE 2+ (NEGATIVE); URINE NITRITE POSITIVE (NEGATIVE); URINE PROTEIN NEGATIVE (NEGATIVE); URINE UROBILINOGEN NEGATIVE mg/dL (0.2-1.0)
[2018-08-01 21:00] LABS: EPI CELLS FEW /HPF (FEW); URINE BACTERIA RARE /hpf (NONE SEEN)
[2018-08-01] MEDS ORDERED: CEFTRIAXONE 1,000 MG in DEXTROSE 5%-WATER - 50 ML IVPB ONE (21:11)
[2018-08-01 21:16] LABS: ALBUMIN 3.4 g/dl (3.4-5.0); ALK PHOS 86 U/L (45-117); ANION GAP 3 MMOL/L (8-16); BILIRUBIN,TOTAL 0.3 mg/dL (0.2-1); BLOOD UREA NITROGEN 20 mg/dL (7-18); CHLORIDE 108 mmol/L (98-107); CO2 31 mmol/L (21-32); CREATININE 0.7 mg/dL (0.55-1.3); GLUCOSE,RANDOM 92 mg/dL (74-106); MAGNESIUM 2.5 mg/dL (1.8-2.4); PHOSPHOROUS 3.8 mg/dL (2.5-4.9); SGOT/AST 23 U/L (15-37); SGPT/ALT 63 U/L (13-61); SODIUM 142 mmol/L (136-145); TOT PROT 6.1 g/dl (6.4-8.2)
[2018-08-01] MEDS ORDERED: CEFTRIAXONE 1 GM/50 ML BAG ONE (21:41)
--- NOTE | 2018-08-01 23:26 | PDOC ---
*Physical Exam - Vital Signs Last Vital Signs Temp Pulse Resp BP Pulse Ox 97.8 F 75 20 143/80 99 08/01/18 18:08 08/01/18 20:36 08/01/18 20:36 08/01/18 20:36 08/01/18 20:36 ED Treatment Course - LABORATORY CBC & Chemistry Diagram: 08/01/18 20:15 08/01/18 20:15 - ADDITIONAL ORDERS Additional order review: Laboratory Results 08/01/18 08/01/18 20:15 20:04 Sodium 142 Potassium 4.0 Chloride 108 H Carbon Dioxide 31 Anion Gap 3 L BUN 20 H Creatinine 0.7 Creat Clearance w eGFR > 60 Random Glucose 92 Calcium 9.0 Phosphorus 3.8 Magnesium 2.5 H Total Bilirubin 0.3 AST 23 ALT 63 H Alkaline Phosphatase 86 Creatine Kinase 53 Troponin I < 0.02 Total Protein 6.1 L Albumin 3.4 Urine Color Yellow Urine Appearance Cloudy Urine pH 6.0 Ur Specific [place] 1.013 Urine Protein Negative Urine Glucose (UA) Negative Urine Ketones Negative Urine Blood 1+ H Urine Nitrite Positive Urine Bilirubin Negative Urine Urobilinogen Negative Ur Leukocyte Esterase 2+ H Urine WBC (Auto) 36 Urine RBC (Auto) <1 Ur Epithelial Cells Few Urine Bacteria Rare 08/01/18 20:15 RBC 4.35 MCV 88.8 MCHC 34.4 RDW 15.4 MPV 9.2 Neutrophils % 61.1 Lymphocytes % 24.7 Monocytes % 11.0 H Eosinophils % 2.5 Basophils % 0.7 - Medications Given in the ED: ED Medications Discontinued Medications Generic Name Dose Route Start Last Admin Trade Name Freq PRN Reason Stop Dose Admin Acetaminophen 975 mg 08/01/18 19:59 08/01/18 20:34 Tylenol - PO 08/01/18 20:00 975 mg ONCE ONE Administration Ceftriaxone Sodium 1,000 mg/ 50 mls @ 100 mls/hr 08/01/18 21:11 08/01/18 21: 51 Dextrose IVPB 08/01/18 21:40 100 mls/hr ONCE ONE Administration Medical Decision Making - Medical Decision Making 08/01/18 23:[address] Cruz. Patient is 88F here today after fall, pending head/cervical spine ct results. UTI+, given rocephin. Good for discharge back to [facility] after results. Head CT/Cervical spine ct normal. Will d/c back to [facility]. *DC/Admit/Observation/Transfer Diagnosis at time of Disposition: Fall from ground level, UTI (urinary tract infection) - Discharge Dispostion Disposition: HOME Condition at time of disposition: Good Decision to Admit order: No - Referrals Referrals: Jay Montero MD [Primary Care Provider] - - Patient Instructions Additional Instructions: Please take keflex 500mg BID for the next 7 days for UTI. Please return if you have any new, worsening or concerning symptoms, especially fever, increasing pain, and increasing confusion. - Post Discharge Activity
[2018-08-02 01:07] VITALS: BP 148/76; PULSE 77; TEMP 97.6
--- NOTE | 2018-08-02 10:51 | EKG ---
Test Reason : Blood Pressure : / mmHG Vent. Rate : 076 BPM Atrial Rate : 076 BPM P-R Int : 178 ms QRS Dur : 082 ms QT Int : 430 ms P-R-T Axes : 073 009 044 degrees QTc Int : 483 ms NORMAL SINUS RHYTHM POSSIBLE LEFT ATRIAL ENLARGEMENT SEPTAL INFARCT (CITED ON OR BEFORE 07-JUN-2018) POSSIBLE INFERIOR INFARCT (CITED ON OR BEFORE 07-JUN-2018) ABNORMAL ECG WHEN COMPARED WITH ECG OF 07-JUN-2018 07:25, NO SIGNIFICANT CHANGE WAS FOUND Confirmed by KEVIN CARRERO MD ([id number]) on 08/02/2018 10:50:21 AM Referred By: Confirmed By:KEVIN CARRERO MD
== END 2018-08-02 02:35 | disposition home or self-care (01) ==
LOC: JER 17:50
DX: N39.0 Urinary tract infection, site not specified (principal); M25.552 Pain in left hip; W18.39XA Other fall on same level, initial encounter; Y93.89 Activity, other specified; Y92.128 Other place in nursing home as the place of occurrence of the external cause; Y99.8 Other external cause status; I25.10 Atherosclerotic heart disease of native coronary artery without angina pectoris; I10 Essential (primary) hypertension; Z95.5 Presence of coronary angioplasty implant and graft; I25.2 Old myocardial infarction; I34.1 Nonrheumatic mitral (valve) prolapse; E03.9 Hypothyroidism, unspecified; E78.00 Pure hypercholesterolemia, unspecified; F03.90 Unspecified dementia, unspecified severity, without behavioral disturbance, psychotic disturbance, mood disturbance, and anxiety
CPT/HCPCS: 36415; 70450-TC; 71045-TC-FY; 72125-TC; 73502-TC-LT-FY; 80053; 81003; 81015; 82550; 83735; 84100; 84484; 85025; 87086; 87186; 93005; 93010; 99284-25

== ENCOUNTER 2018-08-08 14:28 | Observation (INO) | payer OTHER ==
[2018-08-08 14:55] VITALS: BMI 21.2
--- NOTE | 2018-08-08 15:05 | PDOC ---
History of Present Illness - General Chief Complaint: Nausea/Vomiting Stated Complaint: Vomiting/Diarrhea Time Seen by Provider: 08/08/18 14:55 - History of Present Illness Initial Comments: Genevieve Maldonado is a 88yo woman with a PMH of HTN, HLD, and dementia who presents from a SNF with report of profuse watery diarrhea, nausea/vomiting, and abdominal pain as well as shortness of breath today. Ms Maldonado does endorse nausea, and she states that she feels like she is going to vomit. She states that she is not aware of any diarrhea, but she does not really remember. She denies any shortness of breath. Two attempts were made to reach staff at [facility] for more information, but no one answered either call. Per paperwork from the SNF, they are requesting evaluation for cdiff and dehydration. Past History - Past Medical History Allergies/Adverse Reactions: Allergies Allergy/AdvReac Type Severity Reaction Status Date / Time Iodinated Contrast- Oral and Allergy Severe Verified 08/08/18 14:52 IV Dye [IV Dye, Iodine Containing Contrast ] meperidine HCl [From Demerol] Allergy Severe Vomiting Verified 08/08/18 14:52 morphine Allergy Severe Vomiting Verified 08/08/18 14:52 pitavastatin calcium Allergy Verified 08/08/18 14:52 [From Livalo] venom-honey bee Allergy Verified 08/08/18 14:52 [bee venom (honey bee)] Home Medications: Ambulatory Orders Acetaminophen [Tylenol .Regular Strength -] 650 mg PO Q4H PRN #0 tablet Cholecalciferol (Vitamin D3) [Vitamin D3 -] 2,000 unit PO DAILY #0 tab 06/22/14 Aspirin 81 mg PO DAILY 06/07/18 Diltiazem Cd [Cardizem Cd -] 90 mg PO DAILY 06/07/18 Sertraline HCl [Zoloft] 50 mg PO DAILY 06/07/18 Docusate Sodium [Colace -] 300 mg PO HS capsule 06/12/18 Polyethylene Glycol 3350 [Miralax 119 gm Btl -] 17 gm PO DAILY bottle 06/12/18 Cephalexin [Keflex] 500 mg PO BID 08/08/18 Ezetimibe [Zetia -] 20 mg PO DAILY 08/08/18 Melatonin 5 mg PO HS 08/08/18 Quetiapine Fumarate [Seroquel -] 25 mg PO HS 08/08/18 Anemia: No Asthma: No Cancer: No Cardiac Disorders: Yes (DE, cardiac cath; MVP) CVA: No COPD: No CHF: No Dementia: No Diabetes: No GI Disorders: No Disorders: No HTN: Yes Hypercholesterolemia: Yes Liver Disease: No Seizures: No Thyroid Disease: Yes (hypo) - Surgical History Abdominal Surgery: Yes Appendectomy: Yes Cardiac Surgery: No Cholecystectomy: No Lung Surgery: No Neurologic Surgery: No Orthopedic Surgery: No - Suicide/Smoking/Psychosocial Hx Smoking Status: No Smoking History: Unknown if ever smoked Have you smoked in the past 12 months: No Number of Cigarettes Smoked Daily: 0 Information on smoking cessation initiated: No Hx Alcohol Use: No Drug/Substance Use Hx: No Substance Use Type: None Hx Substance Use Treatment: No Review of Systems - Review of Systems Comments:: 08/08/18 16:24 Could not obtain secondary to dementia *Physical Exam - Vital Signs Last Vital Signs Temp Pulse Resp BP Pulse Ox 97.4 F L 94 H 20 130/72 98 08/08/18 14:52 08/08/18 14:52 08/08/18 14:52 08/08/18 14:52 08/08/18 14:52 - Physical Exam Comments: General: Comfortable, no acute distress HEENT: PERRL, EOMI, MMM, voice normal, normal neck ROM, no LAD Cards: RRR, no murmur appreciated Pulm: Comfortable on supplementa O2 by NC, clear to auscultation bilaterally Abd: Soft, nondistended. Mild diffuse TTP Ext: Atraumatic. No LE edema. ROM intact, moves all extremities Vasc: Extremities WWP. Skin: Normal color, no rashes or lesions Neuro: Awake, responsive, confused, CN grossly intact, normal speech, motor/ sensory grossly intact and symmetric Psych: Mood appropriate to situation Moderate Sedation - Procedure Monitoring Vital Signs: Procedure Monitoring Vital Signs Temperature 97.4 F L 08/08/18 14:52 Pulse Rate 94 H 08/08/18 14:52 Respiratory Rate 20 08/08/18 14:52 Blood Pressure 130/72 08/08/18 14:52 O2 Sat by Pulse Oximetry (%) 98 08/08/18 14:52 ED Treatment Course - LABORATORY CBC & Chemistry Diagram: 08/09/18 08:25 08/09/18 08:25 Medical Decision Making - Medical Decision Making 08/08/18 15:04 Genevieve Maldonado is a 88yo woman with a PMH of HTN, HLD, and dementia who presents from a SNF with report of profuse watery diarrhea, nausea/vomiting, and abdominal pain. They are requesting testing for cdiff and eval for dehydration. - Ddx includes colitis, gastroenteritis, gastritis. Most likely viral but cdiff is possible as she [place], has been hospitalized, was on abx for a UTI. - No SOB currently, but will r/o ACS and acute pulm abnormalities - CBC, chemistry, EKG, CXR 08/08/18 15:48 - Zofran for nausea 08/08/18 16:34 - WBC 19, concerning for infection - Per pt's son, now at bedside, Ms Maldonado was reporting SOB at her SNF. She now denies any breathing problems. He is not aware of any recent SOB or cough. - Still reports nausea, abdominal pain. Will give famotidine IV. Borderline tachycardic, HR in 90's. 500cc bolus 08/08/18 17:18 - Re-examined with Dr Martinez. No longer feeling nauseated. Now reporting lower abdominal and suprapubic pain - UA to evaluate for infection, recently treated for UTI - CT abd/pelvis to eval for colitis 08/08/18 18:59 - UA and CT still pending - Pt endorsed to Dr Garland Discussed with Dr Martinez. Fanny Cruz PGY1 *DC/Admit/Observation/Transfer Diagnosis at time of Disposition: Pleural effusion, Pneumonia, Diarrhea - Discharge Dispostion Condition at time of disposition: Guarded - Referrals - Patient Instructions - Post Discharge Activity
[2018-08-08] MEDS ORDERED: ONDANSETRON 4 MG/2 ML VIAL IVPUSH ONE (15:48)
[2018-08-08] MEDS ORDERED: ONDANSETRON 4 MG/2 ML VIAL ONE (15:58)
[2018-08-08 16:01] LABS: BASO % 0.4 % (0-2.0); EOS % 0.3 % (0-4.5); HEMATOCRIT 45.9 % (32.4-45.2); HEMOGLOBIN 15.5 GM/dL (10.7-15.3); MCH 30.3 pg (25.7-33.7); MCHC 33.7 g/dl (32.0-36.0); MEAN CELL VOLUME 89.7 fl (80-96); MEAN PLT VOLUME 9.5 fl (7.5-11.1); MONO % 4.7 % (3.8-10.2); NEUT % 93.6 % (42.8-82.8); PLATELET COUNT 236 K/MM3 (134-434); RBC 5.11 M/mm3 (3.60-5.2); RDW 15.5 % (11.6-15.6); WHITE BLOOD COUNT 18.5 K/mm3 (4.0-10.0)
--- NOTE | 2018-08-08 16:19 | PDOC ---
Attending Attestation - HPI HPI: 08/08/18 17:55 Patient is an 88 year old female with a significant past medical history of HTN , HLD, GERD, Anxiety, and Dementia, who presents to the ED with complaints of nausea and vomiting that began just prior to ED arrival. As per skilled nursing staff patient experienced multiple episodes of vomiting with associated nausea and diarrhea. Patient reports experiencing slight superpubic pain that began earlier today that she states has subsided while being in the ED. Patient was seen last week for UTI and was prescribed antibiotics that she states were finished yesterday. Denies chest pain, Sob. Denies nausea, vomiting. Denies fevers, chills. Denies head pain, blurred vision. Denies contact with sick individuals, out of state travelling. Denies any other symptoms. Allergies: Iodinated Contrast, Meperidine HCL. Social history: From [facility], No smoking. No alcohol. No illicit drugs. Surgical history: Appendectomy (benign breast tumor S/P surgery), Hysterectomy PMD: Dr. Montero - Physicial Exam PE: 08/08/18 17:55 Constitutional: +Pleasantly demented. Awake, alert, oriented. No acute distress. Head: Normocephalic. Atraumatic Eyes: PERRL. EOMI. Conjunctivae are not pale. ENT: Mucous membranes are moist and intact. Posterior pharynx without exudate or erythema. Uvula midline. Neck: Supple. Full ROM. No lymphadenopathy. Cardiovascular: Regular rate. Regular rhythm. S1, S2 regular. Distal pulses are 2+ and symmetric. Pulmonary/Chest: No evidence of respiratory distress. Clear to auscultation bilaterally No wheezing, rales or rhonchi. Abdominal: +Mild superpubic/ Left lower quadrant tenderness. Soft and nondistended. No rebound, guarding or rigidity. No organomegaly. No palpable masses. Good bowel sounds. Back: No CVA tenderness. Musculoskeletal: No edema. No cyanosis. No clubbing. Full range of motion in all extremities. No Calf tenderness. Radial/pedal pulses are intact and 2+ bilaterally Skin: Skin is warm and dry. No petechiae. No purpura. Neurological: Alert and oriented to person, place, and time. Cranial nerves II -XII are grossly intact. Normal speech. Strength is grossly symmetric. No sensory deficits. Psychiatric: Good eye contact. Normal interaction, affect and behavior. <PitaAl - Last Filed: 08/08/18 17:55> - Resident Resident Name: AnthonyFanny - ED Attending Attestation I have performed the following: I have examined & evaluated the patient, The case was reviewed & discussed with the resident, I agree w/resident's findings & plan, Exceptions are as noted - Medical Decision Making 08/08/18 16:19 I, Dr. Andreia Martinez, DO, attest that this document has been prepared under my direction and personally reviewed by me in its entirety. I further attest, that it accurately reflects all work, treatment, procedures and medical decision -making performed by me. 08/08/18 18:05 a/p: 88yo female with lower abd pain and suprapubic ttp -recent uti -recent abx -diarrhea per the [facility] records with n/v upon arrival in the ED -concern for colitis vs c diff vs uti that failed tx -will send labs, straight cath for urine, ct abd/pelvis to eval for colitis 08/08/18 20:35 ua negative pending official ct read 08/08/18 21:19 ct shows poss LLL pna, pleural effusion fluid in R colon- concern given recent hospitalization, recent uti- will send stool for c diff, however, no bm in the ED case discussed with [facility] who accepts pt to service <Andreia Martinez - Last Filed: 08/08/18 21:21> *DC/Admit/Observation/Transfer - Discharge Dispostion Decision to Admit order: Yes <Andreia Martinez - Last Filed: 08/08/18 21:21> Diagnosis at time of Disposition: Pleural effusion, Pneumonia, Diarrhea - Discharge Dispostion Condition at time of disposition: Guarded - Referrals Referrals: Jay Montero MD [Primary Care Provider] - - Patient Instructions - Post Discharge Activity Heart Score/ECG Review - ECG Intrepretation Comment:: 08/08/18 20:34 sinus at 94, nl axis, nl interval, no acute st/t wave findings <Andreia Martinez - Last Filed: 08/08/18 21:21>
[2018-08-08] MEDS ORDERED: FAMOTIDINE 20 MG/50 ML IVPB 20 MG/50 ML MG IVPB ONE ×2 (16:32→16:46)
[2018-08-08] MEDS ORDERED: SODIUM CHLORIDE 0.9% 500 ML INFUS.BAG IV ONE (16:32)
[2018-08-08 16:38] LABS: ALBUMIN 4.2 g/dl (3.4-5.0); ALK PHOS 100 U/L (45-117); ANION GAP 6 MMOL/L (8-16); BILIRUBIN,TOTAL 0.5 mg/dL (0.2-1); BLOOD UREA NITROGEN 30 mg/dL (7-18); CALCIUM 9.9 mg/dL (8.5-10.1); CHLORIDE 106 mmol/L (98-107); CO2 30 mmol/L (21-32); CREATININE 1.1 mg/dL (0.55-1.3); GLUCOSE,RANDOM 133 mg/dL (74-106); MAGNESIUM 2.6 mg/dL (1.8-2.4); PHOSPHOROUS 5.1 mg/dL (2.5-4.9); POTASSIUM 4.5 mmol/L (3.5-5.1); SGOT/AST 28 U/L (15-37); SGPT/ALT 42 U/L (13-61); SODIUM 141 mmol/L (136-145); TOT PROT 7.2 g/dl (6.4-8.2)
[2018-08-08 16:57] LABS: PLATELET ESTIMATE ADEQUATE
--- NOTE | 2018-08-08 20:08 | PDOC ---
*Physical Exam - Vital Signs Last Vital Signs Temp Pulse Resp BP Pulse Ox 97.4 F L 95 H 20 130/72 96 08/08/18 14:52 08/08/18 17:30 08/08/18 17:30 08/08/18 17:30 08/08/18 17:30 ED Treatment Course - LABORATORY CBC & Chemistry Diagram: 08/10/18 06:35 08/10/18 06:35 - ADDITIONAL ORDERS Additional order review: Laboratory Results 08/08/18 15:52 Sodium 141 Potassium 4.5 Chloride 106 Carbon Dioxide 30 Anion Gap 6 L BUN 30 H Creatinine 1.1 Creat Clearance w eGFR 46.77 Random Glucose 133 H Calcium 9.9 Phosphorus 5.1 H Magnesium 2.6 H Total Bilirubin 0.5 AST 28 ALT 42 Alkaline Phosphatase 100 Total Protein 7.2 Albumin 4.2 08/08/18 15:46 RBC 5.11 MCV 89.7 MCHC 33.7 RDW 15.5 MPV 9.5 Neutrophils % 93.6 H D Lymphocytes % 1.0 L D Monocytes % 4.7 Eosinophils % 0.3 D Basophils % 0.4 - Medications Given in the ED: ED Medications Discontinued Medications Generic Name Dose Route Start Last Admin Trade Name Freq PRN Reason Stop Dose Admin Famotidine/Sodium Chloride 20 mg in 50 mls @ 100 mls/hr 08/08/18 16:32 16:45 Pepcid 20 Mg Premixed Ivpb - IVPB 08/08/18 17:01 100 mls/hr ONCE ONE Administration Ondansetron HCl 4 mg 08/08/18 15:48 08/08/18 15:45 Zofran Injection IVPUSH 08/08/18 15:49 4 mg ONCE ONE Administration Sodium Chloride 500 ml 08/08/18 16:32 08/08/18 16:45 Normal Saline - IV 08/08/18 16:33 500 ml ONCE ONE Administration Medical Decision Making - Medical Decision Making Received sign out from Dr. Anthony ANDREA w/ evidence of LLL PNA and effusion Diarrhea reported at [facility], will sent stool for c. diff; however, no BM in ED Plan for admission for PNA and diarrhea Case discussed w/ [facility] 08/08/18 21:25 *DC/Admit/Observation/Transfer Diagnosis at time of Disposition: Pleural effusion, Pneumonia, Diarrhea - Discharge Dispostion [facility] Condition at time of disposition: Guarded - Referrals - Patient Instructions - Post Discharge Activity
[2018-08-08 20:34] LABS: EPI CELLS 0.8 /HPF (FEW); HYALINE CASTS REVIEW /hpf (NEGATIVE); URINE BACTERIA 0.324 /hpf (NEGATIVE); URINE RBC 2 /hpf (0-3); URINE WBC 0 /hpf (3-5)
--- NOTE | 2018-08-08 21:16 | PN ---
Teaching Attending Note Name of Resident: Jose Oates ATTENDING PHYSICIAN STATEMENT I saw and evaluated the patient. I reviewed the resident's note and discussed the case with the resident. I agree with the resident's findings and plan as documented. SUBJECTIVE: Patient seen and examined; please refer to resident documentation for additional historical info. Briefly, patient presents from [facility] for diarrhea and stated cough (though son denies cough and none was witnessed) and an episode of vomitus here and at [facility]. She is pleasantly demented and unsure of why she is here. Staff at [facility] apparently confirmed that vomitus was light in color. She was recently here for a UTI 08/01 and was treated with a course of keflex. She is noted to have a lab pattern showing dehydration and she admits to poor PO intake, attributing this to not liking the food at her NH. She was not having any SOB or cough and is on RA (unsure why she was documented as being on 2L as to the best of my knowledge she wasn't on O2). No urinary sx, etc. Mild abdominal tenderness. She will be placed on observation on the medicine service 10 sys ROS done and negative aside from HPI PMH (Vertigo, thyroid nodule, HTN, HLD, GERD, Anxiety, Dementia), PSH, Family Hx , Social Hx reviewed Medication list reviewed; pending reconciliation Acetaminophen [Tylenol .Regular Strength -] 650 mg PO Q4H PRN #0 tablet Cholecalciferol (Vitamin D3) [Vitamin D3 -] 2,000 unit PO DAILY #0 tab 06/22/14 Ezetimibe [Zetia -] 10 mg PO DAILY #30 tablet 06/15/15 Aspirin 81 mg PO DAILY 06/07/18 Diltiazem Cd [Cardizem Cd -] 240 mg PO DAILY 06/07/18 Sertraline HCl [Zoloft] 25 mg PO DAILY 06/07/18 Docusate Sodium [Colace -] 300 mg PO HS capsule 06/12/18 Polyethylene Glycol 3350 [Miralax 119 gm Btl -] 17 gm PO DAILY bottle 06/12/18 OBJECTIVE: VS, labs, imaging reviewed NAD, AAOx1, resting comfortably in bed NC AT EOMI PERRLA RRR s1/2 no mgr Lungs CTAB, w/ sym exp Mildly tender, ND, +BS CN2-12 wnl, no fnd Normal mood, appropriate affect CXR reviewed; read as unremarkable with acute pathology with enlarged heart CT Abdomen/Pelvis shows increased fluid in the R-colon which could be correlated with a recent diarrheal illness as well as a trace L-pleural effusion with mild opacity at the left posterior basilar region adjacent to the costophrenic sulcus probably on the basis of atelecvtasis, less likely representing a small infiltrate ASSESSMENT AND PLAN: Patient presents from [facility] with acute diarrheal illness with 1 episode of vomiting and questionable cough 1) Diarrheal Illness -She was recently on abx, checking Cdif, lactoferrin -Empirically hydrating; leukocytosis may be reactive. Will give a dose of flagyl empirically and monitor for further sx. 2) Dehydration -Hemoconcentration evident on CBC (elevated hb, +ketones, etc.); empirically hydrating overnight. Likely due to vomitting and diarrhea. 3) L-trace pleural effusion with ?Pneumonia -Per the read this was seen on prior CT study and this is less likely an infiltrate; the initial finding was described earlier this year after a fall with a fractured rib will check influenza and culture sputum. Less likely clinically significant. 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
--- NOTE | 2018-08-08 22:52 | HP ---
<Jose Oates - Last Filed: 08/12/18 19:24> CHIEF COMPLAINT: nausea, vomiting, diarrhea PCP: Dr. Bustillo HISTORY OF PRESENT ILLNESS: Pt. is a 88 y.o. F presenting with nausea and diarrhea over the last day. Pt. states that she has had a few episodes of vomiting at [facility] and once here. Vomitus here and at was non-bloody and light colored per nursing staff at both places. Pt. is a poor historian. Pt. endorses mild diffuse abdominal pain most prominent in lower quadrants. Pt. valentin any chest pain, shortness of breath, cough, headache or episodes of diarrhea since ED arrival. Pt. endorses poor oral intake because she does not like the taste of the food. Per son Pt. has history of panic attacks/ increased anxiety during direct questioning. Pt. has vertigo and uses a walker to ambulate. Pt. endorses dizziness and litghtheadedness. ER course was notable for: (1)EKG, labs (2)IVF, C.Diff Ag (3)Zofran Recent Travel: No PAST MEDICAL HISTORY: HTN, HLD, GERD, Anxiety, Dementia PAST SURGICAL HISTORY: Appendectomy, Hysterectomy, Breast Lumpectomy (benign) Social History: Smoking: Denies Alcohol: Denies Drugs: Denies Work: Retired, Pt. 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 [employer] Allergies Iodinated Contrast- Oral and IV Dye [IV Dye, Iodine Containing Contrast ] Allergy (Severe, Verified 08/08/18 14:52) " MY BODY IS ON FIRE " meperidine HCl [From Demerol] Allergy (Severe, Verified 08/08/18 14:52) Vomiting morphine Allergy (Severe, Verified 08/08/18 14:52) Vomiting pitavastatin calcium [From Livalo] Allergy (Verified 08/08/18 14:52) venom-honey bee [bee venom (honey bee)] Allergy (Verified 08/08/18 14:52) HOME MEDICATIONS: Home Medications Medication Instructions Recorded Acetaminophen [Tylenol .Regular 650 mg PO Q4H PRN #0 tablet 06/22/14 Strength -] Cholecalciferol (Vitamin D3) 2,000 unit PO DAILY #0 tab 06/22/14 [Vitamin D3 -] Aspirin 81 mg PO DAILY 06/07/18 Diltiazem Cd [Cardizem Cd -] 90 mg PO DAILY 06/07/18 Sertraline HCl [Zoloft] 50 mg PO DAILY 06/07/18 Docusate Sodium [Colace -] 300 mg PO HS capsule 06/12/18 Polyethylene Glycol 3350 [Miralax 17 gm PO DAILY bottle 06/12/18 119 gm Btl -] Cephalexin [Keflex] 500 mg PO BID 08/08/18 Ezetimibe [Zetia -] 20 mg PO DAILY 08/08/18 Melatonin 5 mg PO HS 08/08/18 Quetiapine Fumarate [Seroquel -] 25 mg PO HS 08/08/18 REVIEW OF SYSTEMS CONSTITUTIONAL: loss of appetite Absent: fever, chills, diaphoresis, generalized weakness, malaise, , weight change HEENT: Absent: rhinorrhea, nasal congestion, throat pain, throat swelling, difficulty swallowing, mouth swelling, ear pain, eye pain, visual changes CARDIOVASCULAR: Absent: chest pain, syncope, palpitations, irregular heart rate, lightheadedness , peripheral edema RESPIRATORY: Absent: cough, shortness of breath, dyspnea with exertion, orthopnea, wheezing, stridor, hemoptysis GASTROINTESTINAL:abdominal pain, nausea, vomiting, diarrhea, Absent: abdominal distension, constipation, melena, hematochezia GENITOURINARY: Absent: dysuria, frequency, urgency, hesitancy, hematuria, flank pain, genital pain MUSCULOSKELETAL: Absent: myalgia, arthralgia, joint swelling, back pain, neck pain SKIN: Absent: rash, itching, pallor HEMATOLOGIC/IMMUNOLOGIC: Absent: easy bleeding, easy bruising, lymphadenopathy, frequent infections ENDOCRINE: Absent: unexplained weight gain, unexplained weight loss, heat intolerance, cold intolerance NEUROLOGIC: dizziness, unsteady gait, Absent: headache, focal weakness or paresthesias, seizure, mental status changes , bladder or bowel incontinence PSYCHIATRIC: Absent: anxiety, depression, suicidal or homicidal ideation, hallucinations. PHYSICAL EXAMINATION Vital Signs - 24 hr 08/08/18 08/08/18 14:52 17:30 Temperature 97.4 F L Pulse Rate 94 H Pulse Rate [ 95 H Apical] Respiratory 20 20 Rate Blood Pressure 130/72 Blood Pressure 130/72 [Right Arm] O2 Sat by Pulse 98 96 Oximetry (%) GENERAL: Awake, alert, and fully oriented, in no acute distress. HEAD: Normal with no signs of trauma. EYES: Pupils equal, round and reactive to light, extraocular movements intact, sclera anicteric, conjunctiva clear. EARS, NOSE, THROAT: Ears normal, nares patent, oropharynx clear without exudates. Moist mucous membranes. NECK: Normal range of motion, supple without lymphadenopathy, JVD, or masses. LUNGS: Breath sounds equal, clear to auscultation bilaterally. No wheezes, and no crackles. No accessory muscle use. HEART: Regular rate and rhythm, normal S1 and S2 without murmur, rub or gallop. ABDOMEN: Soft, LLQ tenderness, not distended, normoactive bowel sounds, no guarding, no rebound, no masses. MUSCULOSKELETAL: Normal range of motion at all joints. No bony deformities or tenderness. No CVA tenderness. UPPER EXTREMITIES: 2+ pulses, warm, well-perfused. No cyanosis. No clubbing. No peripheral edema. LOWER EXTREMITIES: 2+ pulses, warm, well-perfused. No calf tenderness. No peripheral edema. NEUROLOGICAL: Normal speech. Gait not assessed PSYCHIATRIC: Cooperative. Good eye contact. Appropriate mood and affect. SKIN: Warm, dry, normal turgor, no rashes or lesions noted, normal capillary refill. Laboratory Results - last 24 hr 08/08/18 08/08/18 08/08/18 15:46 15:52 19:29 WBC 18.5 H RBC 5.11 Hgb 15.5 H Hct 45.9 H D MCV 89.7 MCH 30.3 MCHC 33.7 RDW 15.5 Plt Count 236 D MPV 9.5 Absolute Neuts (auto) 17.3 H Total Counted 100 Neutrophils % 93.6 H D Neutrophils % (Manual) 78.0 Band Neutrophils % 15.0 Lymphocytes % 1.0 L D Lymphocytes % (Manual) 2.0 L Monocytes % 4.7 Monocytes % (Manual) 5 Eosinophils % 0.3 D Basophils % 0.4 Nucleated RBC % 0 Platelet Estimate Adequate Platelet Comment No clumping noted Sodium 141 Potassium 4.5 Chloride 106 Carbon Dioxide 30 Anion Gap 6 L BUN 30 H Creatinine 1.1 Creat Clearance w eGFR 46.77 Random Glucose 133 H Calcium 9.9 Phosphorus 5.1 H Magnesium 2.6 H Total Bilirubin 0.5 AST 28 ALT 42 Alkaline Phosphatase 100 Total Protein 7.2 Albumin 4.2 Urine Color Yellow Urine Appearance Clear Urine pH 5.0 Ur Specific [place] 1.021 Urine Protein Negative Urine Glucose (UA) Negative Urine Ketones Trace H Urine Blood Negative Urine Nitrite Negative Urine Bilirubin Negative Urine Urobilinogen 0.2 Ur Leukocyte Esterase Negative Urine WBC (Auto) 0 Urine RBC (Auto) 2 Urine Casts (Auto) Review A* U Pathogenic Cast Auto U Epithel Cells (Auto) 0.8 Urine Bacteria (Auto) 0.324 Urine RBC No Result Required. ASSESSMENT/PLAN: Pt. is a 88 y.o. F w/ PMHx. of HTN, HLD, GERD, Anxiety, Dementia presenting with nausea and diarrhea over the last day. #R/o Infectious Diarrhea f/u C.Diff Ag Recent Abx. use CT- AP showed fluid in the right colon, no evience of acute pathology, trace L. pleural effusion, stable left adrenal adenoma #Dehydration 2/2 poor oral intake Nutrition consult supplemental nutrition encourage PO intake #Nausea-resolve c/w Zofran PRN #Dementia c/w Seroquel and Zoloft #HTN c/w home medictions clarify if Pt. is on Valsartan 80mg #FEN LR @ 75ml/hr, encourage PO intake monitor, replete as needed Na restricted diet, encourage PO intake #DVT Heparin SQ Visit type - Emergency Visit Emergency Visit: Yes ED Registration Date: 08/08/18 Care time: The patient presented to the Emergency Department on the above date and was hospitalized for further evaluation of their emergent condition. - New Patient This patient is new to me today: Yes Date on this admission: 08/08/18 - Critical Care Critical Care patient: No <Aren Hancock - Last Filed: 09/10/18 21:53> Seen and examined; agree with above aside from what is supplemented in my own documentation. Repeated all ardon parts of exam, supervised all vital parts of patient care.
[2018-08-08] MEDS ORDERED: LACTATED RINGERS SOLUTION 1,000 ML/1,000 ML INFUS.BAG IV SCH (23:00)
[2018-08-08 23:05] LABS: URINE APPEARANCE Clear; URINE BILIRUBIN 1+ (<2.0 mg/dL); URINE COLOR Yellow; URINE GLUCOSE (UA) Negative (NEGATIVE); URINE KETONE 1+ (NEGATIVE); URINE LEUK ESTERASE Negative (NEGATIVE); URINE NITRITE Negative (NEGATIVE); URINE PROTEIN Negative (NEGATIVE); URINE UROBILINOGEN 0.2 mg/dL (0.2-1.0)
[2018-08-08] MEDS ORDERED: ACETAMINOPHEN 325 MG TABLET (FP) PO PRN (23:08)
[2018-08-09] MEDS: dilTIAZem HCL 30 MG TABLET (FP) PO SCH ×3 (06:37→21:02)
[2018-08-09 09:31] LABS: HEMATOCRIT 36.4 % (32.4-45.2); HEMOGLOBIN 12.2 GM/dL (10.7-15.3); MCH 29.6 pg (25.7-33.7); MCHC 33.6 g/dl (32.0-36.0); MEAN CELL VOLUME 88.1 fl (80-96); MEAN PLT VOLUME 9.3 fl (7.5-11.1); PLATELET COUNT 219 K/MM3 (134-434); RBC 4.13 M/mm3 (3.60-5.2); RDW 15.3 % (11.6-15.6); WHITE BLOOD COUNT 12.5 K/mm3 (4.0-10.0)
[2018-08-09] MEDS: SERTRALINE HCL 50 MG TABLET (FP) PO SCH (10:34)
[2018-08-09] MEDS: ASPIRIN 81 MG CHEWABLE TABLETS PO SCH (10:34)
[2018-08-09] MEDS: CHOLECALCIFEROL (VIT D3) 1,000 UNIT (25 MCG) TABLET PO SCH (10:34)
[2018-08-09] MEDS: EZETIMIBE 10 MG TABLET (FP) PO SCH (10:35)
[2018-08-09] MEDS: POLYETHYLENE GLYCOL 3350 119 GM BTL PO SCH (10:38)
--- NOTE | 2018-08-09 10:59 | EKG ---
Test Reason : Blood Pressure : / mmHG Vent. Rate : 094 BPM Atrial Rate : 094 BPM P-R Int : 174 ms QRS Dur : 082 ms QT Int : 368 ms P-R-T Axes : 078 052 068 degrees QTc Int : 460 ms NORMAL SINUS RHYTHM POSSIBLE LEFT ATRIAL ENLARGEMENT POSSIBLE INFERIOR INFARCT (CITED ON OR BEFORE 07-JUN-2018) ABNORMAL ECG WHEN COMPARED WITH ECG OF 01-AUG-2018 21:10, CRITERIA FOR SEPTAL INFARCT ARE NO LONGER PRESENT Confirmed by KEVIN CARRERO MD ([id number]) on 08/09/2018 10:59:26 AM Referred By: Confirmed By:KEVIN CARRERO MD
[2018-08-09 11:00] LABS: ANION GAP 5 MMOL/L (8-16); BLOOD UREA NITROGEN 24 mg/dL (7-18); CALCIUM 8.7 mg/dL (8.5-10.1); CHLORIDE 108 mmol/L (98-107); CO2 28 mmol/L (21-32); CREATININE 0.7 mg/dL (0.55-1.3); GLUCOSE,RANDOM 89 mg/dL (74-106); MAGNESIUM 2.4 mg/dL (1.8-2.4); PHOSPHOROUS 2.8 mg/dL (2.5-4.9); POTASSIUM 4.6 mmol/L (3.5-5.1); SODIUM 141 mmol/L (136-145)
[2018-08-09] MEDS ORDERED: ONDANSETRON 4 MG/2 ML VIAL IVPB PRN (14:43)
[2018-08-09] MEDS ORDERED: DEXTROSE 5%-NORMAL SALINE 500 ML IV ONE (14:44)
[2018-08-09] MEDS ORDERED: QUEtiapine FUMARATE 25 MG TABLET (FP) PO ONE (14:48)
--- NOTE | 2018-08-09 15:14 | PN ---
Teaching Attending Note Name of Resident: Sushila Mcclure ATTENDING PHYSICIAN STATEMENT I saw and evaluated the patient. I reviewed the resident's note and discussed the case with the resident. I agree with the resident's findings and plan as documented. SUBJECTIVE: Ms Maldonado says she feels fine and is without complaint. Denies cp, sob , n/v. Says she does not know why she is here. OBJECTIVE: Last Vital Signs Temp Pulse Resp BP Pulse Ox 36.1 C L 70 18 133/70 94 L 08/09/18 15:08/09/18 15:08/09/18 15:08/09/18 15:08/09/18 01:32 Gen: nad Pulm: ctab w/o w/r/r CV: rrr w/o m/r/g Abd: +bs, s/nt, diffuse tenderness Ext: no c/c/e ASSESSMENT AND PLAN: Problem List - Problems (1) Gastroenteritis Assessment/Plan: -suspect patient has viral gastroenteritis since reported to have nausea, vomiting, and diarrhea -gentle hydration -trial of diet -monitor -if having diarrhea, will send for c diff -at this moment will hold off on antibiotics Code(s): K52.9 - NONINFECTIVE GASTROENTERITIS AND COLITIS, UNSPECIFIED (2) Hyperlipidemia Assessment/Plan: -continue zetia Code(s): E78.5 - HYPERLIPIDEMIA, UNSPECIFIED Qualifiers: Hyperlipidemia type: Pure hypercholesterolemia (3) Hypertension Assessment/Plan: -continue cardizem Code(s): I10 - ESSENTIAL (PRIMARY) HYPERTENSION Qualifiers: Hypertension type: essential hypertension Qualified Code(s): I10 - Essential (primary) hypertension (4) Dehydration Assessment/Plan: -hydration with IVF Code(s): E86.0 - DEHYDRATION (5) Dementia Assessment/Plan: -continue zoloft and seroquel Code(s): F03.90 - UNSPECIFIED DEMENTIA WITHOUT BEHAVIORAL DISTURBANCE
--- NOTE | 2018-08-09 20:12 | PN ---
Physical Exam: SUBJECTIVE: Patient seen and examined; altered mental status, anxious, afebrile , vitals stable; c/o n/abdominal pain; did not want breakfast OBJECTIVE: Vital Signs Period Temp Pulse Resp BP Sys/Barber Pulse Ox Last 24 Hr 97 F-98.7 F 70-89 18-18 117-133/58-70 94 GENERAL: The patient is awake, alert, and dementia; agitated NECK: Trachea midline, full range of motion, supple. LUNGS: Breath sounds equal, clear to auscultation bilaterally, no wheezes, no crackles, no accessory muscle use. HEART: Regular rate and rhythm, S1, S2 without murmur, rub or gallop. ABDOMEN: Soft, tender to palpation under left breast, nondistended, normoactive bowel sounds, no guarding, no rebound, no hepatosplenomegaly, no masses. EXTREMITIES: 2+ pulses, warm, well-perfused, no edema. NEUROLOGICAL: Cranial nerves II through XII grossly intact. Normal speech, gait not observed. PSYCH: Normal mood, normal affect. SKIN: Warm, dry, normal turgor, no rashes or lesions noted Laboratory Results - last 24 hr 08/08/18 08/08/18 08/09/18 19:29 22:55 08:25 WBC 12.5 H RBC 4.13 Hgb 12.2 Hct 36.4 D MCV 88.1 MCH 29.6 MCHC 33.6 RDW 15.3 Plt Count 219 MPV 9.3 Sodium Potassium Chloride Carbon Dioxide Anion Gap BUN Creatinine Creat Clearance w eGFR Random Glucose Calcium Phosphorus Magnesium Urine Color Yellow Urine Appearance Clear Urine pH 5.0 Ur Specific [place] >= 1.030 Urine Protein Negative Urine Glucose (UA) Negative Urine Ketones 1+ H Urine Blood Negative Urine Nitrite Negative Urine Bilirubin 1+ H Urine Urobilinogen 0.2 Ur Leukocyte Esterase Negative Urine WBC (Auto) 0 Urine RBC (Auto) 2 Urine Casts (Auto) Review A* U Pathogenic Cast Auto U Epithel Cells (Auto) 0.8 Urine Bacteria (Auto) 0.324 Urine RBC No Result Required. Influenza A (Rapid) Negative Influenza B (Rapid) Negative 08/09/18 08:25 WBC RBC Hgb Hct MCV MCH MCHC RDW Plt Count MPV Sodium 141 Potassium 4.6 Chloride 108 H Carbon Dioxide 28 Anion Gap 5 L BUN 24 H Creatinine 0.7 Creat Clearance w eGFR 78.79 Random Glucose 89 Calcium 8.7 Phosphorus 2.8 Magnesium 2.4 Urine Color Urine Appearance Urine pH Ur Specific [place] Urine Protein Urine Glucose (UA) Urine Ketones Urine Blood Urine Nitrite Urine Bilirubin Urine Urobilinogen Ur Leukocyte Esterase Urine WBC (Auto) Urine RBC (Auto) Urine Casts (Auto) U Pathogenic Cast Auto U Epithel Cells (Auto) Urine Bacteria (Auto) Urine RBC Influenza A (Rapid) Influenza B (Rapid) Active Medications Generic Name Dose Route Start Last Admin Trade Name Freq PRN Reason Stop Dose Admin Acetaminophen 650 mg 08/08/18 23:08 Tylenol - PO Q4H PRN FEVER Aspirin 81 mg 08/09/18 10:00 08/09/18 10:34 Asa - PO 81 mg DAILY NATALIE Administration Cholecalciferol 2,000 unit 08/09/18 10:00 08/09/18 10:34 Vitamin D3 - PO 2,000 unit DAILY NATALIE Administration Diltiazem HCl 30 mg 08/09/18 06:00 08/09/18 15:07 Cardizem - PO 30 mg TID NATALIE Administration Docusate Sodium 300 mg 08/09/18 22:00 Colace - PO HS NATALIE Ezetimibe 10 mg 08/09/18 10:00 08/09/18 10:35 Zetia - PO 10 mg DAILY NATALIE Administration Melatonin 5 mg 08/09/18 22:00 Melatonin PO HS NATALIE Ondansetron HCl 4 mg 08/09/18 14:43 08/09/18 15:07 Zofran Injection IVPB 4 mg Q6H PRN Administration NAUSEA Polyethylene Glycol 17 gm 08/09/18 10:00 08/09/18 10:38 Miralax (For Daily Use) - PO 17 gm DAILY NATALIE Administration Quetiapine Fumarate 25 mg 08/09/18 22:00 Seroquel - PO HS NATALIE Sertraline HCl 50 mg 08/09/18 10:00 08/09/18 10:34 Zoloft - PO 50 mg DAILY NATALIE Administration ASSESSMENT/PLAN: 88 year old female with a history of HTN, HLD, GERD, Anxiety, Dementia, from [place] , who presents with n/v/d. #Abdominal pain with n/v/endorsed diarrhea; ML viral gastroenteritis -IVF -antiemetic -protonix -pain control -monitor off antibiotics -trend cbc, vitals #trace left pleural effusion; monitor for PNA; -monitor clinically #HTN: controlled #dementia: -cont seroquel; memenatine, zoloft VTE ppl; heparin sq GI PP: protonix Visit type - Emergency Visit Emergency Visit: Yes ED Registration Date: 08/08/18 Care time: The patient presented to the Emergency Department on the above date and was hospitalized for further evaluation of their emergent condition. - New Patient This patient is new to me today: Yes Date on this admission: 08/09/18 - Critical Care Critical Care patient: No
[2018-08-09] MEDS ORDERED: QUEtiapine FUMARATE 25 MG TABLET (FP) PO SCH (22:00)
[2018-08-09] MEDS ORDERED: DOCUSATE SODIUM 100 MG CAPSULE (FP) PO SCH (22:00)
[2018-08-09] MEDS ORDERED: MELATONIN 5 MG TABLETS PO SCH (22:00)
[2018-08-10] MEDS: dilTIAZem HCL 30 MG TABLET (FP) PO SCH ×2 (06:23→14:10)
[2018-08-10 07:29] LABS: BASO % 0.4 % (0-2.0); EOS % 1.4 % (0-4.5); HEMATOCRIT 38.2 % (32.4-45.2); HEMOGLOBIN 13.2 GM/dL (10.7-15.3); LYMPH % 22.7 % (8-40); MCH 30.5 pg (25.7-33.7); MCHC 34.5 g/dl (32.0-36.0); MEAN CELL VOLUME 88.4 fl (80-96); MEAN PLT VOLUME 9.1 fl (7.5-11.1); MONO % 10.4 % (3.8-10.2); NEUT % 65.1 % (42.8-82.8); PLATELET COUNT 204 K/MM3 (134-434); RBC 4.32 M/mm3 (3.60-5.2); RDW 15.4 % (11.6-15.6); WHITE BLOOD COUNT 8.2 K/mm3 (4.0-10.0)
[2018-08-10 07:55] VITALS: TEMP 98.4
[2018-08-10 08:18] LABS: ALBUMIN 3.2 g/dl (3.4-5.0); ALK PHOS 69 U/L (45-117); ANION GAP 5 MMOL/L (8-16); BILIRUBIN,TOTAL 0.6 mg/dL (0.2-1); BLOOD UREA NITROGEN 14 mg/dL (7-18); CALCIUM 8.8 mg/dL (8.5-10.1); CHLORIDE 112 mmol/L (98-107); CO2 27 mmol/L (21-32); CREATININE 0.7 mg/dL (0.55-1.3); GLUCOSE,RANDOM 82 mg/dL (74-106); MAGNESIUM 2.3 mg/dL (1.8-2.4); PHOSPHOROUS 2.4 mg/dL (2.5-4.9); POTASSIUM 3.7 mmol/L (3.5-5.1); SGOT/AST 20 U/L (15-37); SGPT/ALT 29 U/L (13-61); SODIUM 144 mmol/L (136-145); TOT PROT 5.8 g/dl (6.4-8.2)
[2018-08-10] MEDS ORDERED: PANTOPRAZOLE 40 MG TABLET (FP) PO SCH (10:00)
[2018-08-10] MEDS: ASPIRIN 81 MG CHEWABLE TABLETS PO SCH (10:12)
[2018-08-10] MEDS: CHOLECALCIFEROL (VIT D3) 1,000 UNIT (25 MCG) TABLET PO SCH (10:12)
[2018-08-10] MEDS: SERTRALINE HCL 50 MG TABLET (FP) PO SCH (10:12)
[2018-08-10] MEDS: EZETIMIBE 10 MG TABLET (FP) PO SCH (10:12)
[2018-08-10] MEDS: POLYETHYLENE GLYCOL 3350 119 GM BTL PO SCH (10:13)
[2018-08-10] MEDS ORDERED: NAPH,MB-DB/K PH,MBDB POWDER PACKET PO ONE (11:16)
[2018-08-10 14:42] VITALS: BP 152/79; PULSE 78
--- NOTE | 2018-08-10 16:32 | PN ---
Physical Exam: SUBJECTIVE: Patient seen and examined no complaints, tolerated breakfast, very pleasant this morning, wanting to go fpc. OBJECTIVE: Vital Signs Period Temp Pulse Resp BP Sys/Barber Pulse Ox Last 24 Hr 98.4 F-98.4 F 75-98 18-20 124-152/65-79 95 GENERAL: The patient is awake, alert, and pleasantly confused at baseline LUNGS: Breath sounds equal, clear to auscultation bilaterally, no wheezes, no crackles, no accessory muscle use. HEART: Regular rate and rhythm, S1, S2 without murmur, rub or gallop. ABDOMEN: Soft, nontender, nondistended, normoactive bowel sounds, no guarding, no rebound, no hepatosplenomegaly, no masses. EXTREMITIES: 2+ pulses, warm, well-perfused, no edema. NEUROLOGICAL: dementia Laboratory Results - last 24 hr 08/10/18 08/10/18 06:35 06:35 WBC 8.2 RBC 4.32 Hgb 13.2 Hct 38.2 MCV 88.4 MCH 30.5 MCHC 34.5 RDW 15.4 Plt Count 204 MPV 9.1 Absolute Neuts (auto) 5.3 Neutrophils % 65.1 D Lymphocytes % 22.7 D Monocytes % 10.4 H D Eosinophils % 1.4 D Basophils % 0.4 Nucleated RBC % 0 Sodium 144 Potassium 3.7 Chloride 112 H Carbon Dioxide 27 Anion Gap 5 L BUN 14 Creatinine 0.7 Creat Clearance w eGFR 78.79 Random Glucose 82 Calcium 8.8 Phosphorus 2.4 L Magnesium 2.3 Total Bilirubin 0.6 AST 20 ALT 29 Alkaline Phosphatase 69 Total Protein 5.8 L Albumin 3.2 L ASSESSMENT/PLAN: 88 year old female with a history of HTN, HLD, GERD, Anxiety, Dementia, from [place] , who presents with n/v/d. Mircobiology negative. Most likely viral gastroenteritis. vital stable. CT negative for acute pathology. Discharged back to [facility]pc. Visit type - Emergency Visit Emergency Visit: Yes ED Registration Date: 08/08/18 Care time: The patient presented to the Emergency Department on the above date and was hospitalized for further evaluation of their emergent condition. - New Patient This patient is new to me today: No - Critical Care Critical Care patient: No - Discharge Referral Referred to [facility] Med [facility] No
--- NOTE | 2018-08-10 16:55 | PN ---
Teaching Attending Note Name of Resident: Sushila Mcclure ATTENDING PHYSICIAN STATEMENT I saw and evaluated the patient. I reviewed the resident's note and discussed the case with the resident. I agree with the resident's findings and plan as documented. OBJECTIVE: Last Vital Signs Temp Pulse Resp BP Pulse Ox 36.9 C 78 18 152/79 95 08/10/18 14:42 08/10/18 14:42 08/10/18 14:42 08/10/18 14:42 08/09/18 23:00 Gen: nad Pulm: ctab w/o w/r/r CV: rrr w/o m/r/g Abd +bs, s/nt/nd Ext: no c/c/e CBC, BMP 08/10/18 06:35 08/10/18 06:35 Ms Maldonado is a pleasant 88 year old female with dementia that was admitted to the hospital for gastroenteritis. She was monitored overnight off of antibiotics. She did not have symptoms here. She was hydrated while here. She did have an episode of sundowning, this resolved after she was able to sleep overnight. She is safe for discharge back to SNF. Problem List - Problems (1) Gastroenteritis Code(s): K52.9 - NONINFECTIVE GASTROENTERITIS AND COLITIS, UNSPECIFIED (2) Hyperlipidemia Code(s): E78.5 - HYPERLIPIDEMIA, UNSPECIFIED Qualifiers: Hyperlipidemia type: Pure hypercholesterolemia (3) Hypertension Code(s): I10 - ESSENTIAL (PRIMARY) HYPERTENSION Qualifiers: Hypertension type: essential hypertension Qualified Code(s): I10 - Essential (primary) hypertension (4) Dehydration Code(s): E86.0 - DEHYDRATION (5) Dementia Code(s): F03.90 - UNSPECIFIED DEMENTIA WITHOUT BEHAVIORAL DISTURBANCE
== END 2018-08-10 15:00 ==
LOC: JER 14:28 → JERBED 21:21 → INTOOBSV 21:21 → J5S 23:57
PROVIDERS: ADMIT Internal Medicine; ATTEND Internal Medicine
PROC: 3E033GC Introduction of Other Therapeutic Substance into Peripheral Vein, Percutaneous Approach (ICD-10-PCS; principal; 2018-08-08)
PROC: 3E0337Z Introduction of Electrolytic and Water Balance Substance into Peripheral Vein, Percutaneous Approach (ICD-10-PCS; 2018-08-08)
DX: K52.9 Noninfective gastroenteritis and colitis, unspecified (principal); J90 Pleural effusion, not elsewhere classified; R19.7 Diarrhea, unspecified; I10 Essential (primary) hypertension; E78.5 Hyperlipidemia, unspecified; F03.90 Unspecified dementia, unspecified severity, without behavioral disturbance, psychotic disturbance, mood disturbance, and anxiety; I34.1 Nonrheumatic mitral (valve) prolapse; E03.9 Hypothyroidism, unspecified; K21.9 Gastro-esophageal reflux disease without esophagitis; F41.9 Anxiety disorder, unspecified; E86.0 Dehydration; D35.00 Benign neoplasm of unspecified adrenal gland; Z98.61 Coronary angioplasty status; Z88.8 Allergy status to other drugs, medicaments and biological substances; Z79.82 Long term (current) use of aspirin
CPT/HCPCS: 36415; 71045-TC-FY; 74176-TC; 80048; 80053; 81003; 83735; 84100; 85025; 85027; 87040; 87804; 93005; 93010; 96365; 96375; 96376; 99284-25; G0378

== ENCOUNTER 2018-09-02 09:11 | Inpatient (IN) | payer OTHER ==
[2018-09-02] MEDS ORDERED: ONDANSETRON 4 MG/2 ML VIAL ONE (09:38)
[2018-09-02] MEDS ORDERED: ACETAMINOPHEN 1000 MG/100 ML VIAL (NON FORMULARY) IVPB ONE (10:05)
--- NOTE | 2018-09-02 10:09 | PDOC ---
History of Present Illness - General Chief Complaint: Injury Stated Complaint: FALL - History of Present Illness Initial Comments: 09/02/18 10:09 88 F with h/o HTN, HLD, GERD, Anxiety, and Dementia, presenting to ED after being found on the ground at [facility]. Per EMS, pt was encountered on the ground this morning by [facility] staff. Pt has no recollection of fall. She complains now of L hip pain and L lower abdominal pain. Denies any WOODS/N/V. Denies CP/SOB. Denies neck/ back pain. Does not remember if she hit her head or lost consciousness. Pt endorses nausea without vomiting. Denies diarrhea/constipation. In ED, pt is awake and alert, oriented only to self. Past History - Past Medical History Allergies/Adverse Reactions: Allergies Allergy/AdvReac Type Severity Reaction Status Date / Time Iodinated Contrast- Oral and Allergy Severe Verified 09/02/18 09:30 IV Dye [IV Dye, Iodine Containing Contrast ] meperidine HCl [From Demerol] Allergy Severe Vomiting Verified 09/02/18 09:30 morphine Allergy Severe Vomiting Verified 09/02/18 09:30 pitavastatin calcium Allergy Verified 09/02/18 09:30 [From Livalo] venom-honey bee Allergy Verified 09/02/18 09:30 [bee venom (honey bee)] Home Medications: Ambulatory Orders Cholecalciferol (Vitamin D3) [Vitamin D3 -] 2,000 unit PO DAILY #0 tab 06/22/14 Aspirin 81 mg PO DAILY 06/07/18 Diltiazem Cd [Cardizem Cd -] 90 mg PO DAILY 06/07/18 Sertraline HCl [Zoloft] 50 mg PO DAILY 06/07/18 Docusate Sodium [Colace -] 300 mg PO HS capsule 06/12/18 Polyethylene Glycol 3350 [Miralax 119 gm Btl -] 17 gm PO DAILY bottle 06/12/18 Melatonin 5 mg PO HS 08/08/18 Quetiapine Fumarate [Seroquel -] 25 mg PO HS 08/08/18 Anemia: No Asthma: No Cancer: No Cardiac Disorders: Yes (MO, cardiac cath; MVP) CVA: No COPD: No CHF: No Dementia: No Diabetes: No GI Disorders: No Disorders: No HTN: Yes Hypercholesterolemia: Yes Liver Disease: No Psychiatric Problems: (anxiety disorder, psychotic disorder w/ delusions, insomnia,mood dx) Seizures: No Thyroid Disease: Yes (hypo) - Surgical History Abdominal Surgery: Yes Appendectomy: Yes Cardiac Surgery: No Cholecystectomy: No Lung Surgery: No Neurologic Surgery: No Orthopedic Surgery: No - Suicide/Smoking/Psychosocial Hx Smoking Status: No Smoking History: Never smoked Have you smoked in the past 12 months: No Number of Cigarettes Smoked Daily: 0 Information on smoking cessation initiated: No Hx Alcohol Use: No Drug/Substance Use Hx: No Substance Use Type: None Hx Substance Use Treatment: No Review of Systems - Review of Systems Comments:: 09/02/18 10:11 GENERAL/CONSTITUTIONAL: No fever or chills. No weakness. HEAD, EYES, EARS, NOSE AND THROAT: No change in vision. No ear pain or discharge. No sore throat. CARDIOVASCULAR: No chest pain, no shortness of breath, no loss of consciousness RESPIRATORY: No cough, wheezing, or hemoptysis. GASTROINTESTINAL: No nausea, vomiting, diarrhea or constipation. GENITOURINARY: No dysuria, frequency, or change in urination. MUSCULOSKELETAL: + L hip pain, No neck or back pain. SKIN: No rash NEUROLOGIC: No vertigo, no change in strength/sensation. ENDOCRINE: No increased thirst. No abnormal weight change. HEMATOLOGIC/LYMPHATIC: No anemia, easy bleeding, or history of blood clots. ALLERGIC/IMMUNOLOGIC: No hives or skin allergy. *Physical Exam - Vital Signs Last Vital Signs Temp Pulse Resp BP Pulse Ox 98.7 F 80 16 171/88 H 98 09/02/18 09:12 09/02/18 09:12 09/02/18 09:12 09/02/18 09:12 09/02/18 09:57 - Physical Exam Comments: 09/02/18 10:11 GENERAL: Awake, alert, and fully oriented, in no acute distress. HEAD: No signs of trauma EYES: PERRLA, EOMI, sclera anicteric, conjunctiva clear ENT: Auricles normal inspection, hearing grossly normal, nares patent, oropharynx clear without exudates. Moist mucosa NECK: Nontender, no stepoffs, Normal ROM, supple, no lymphadenopathy, JVD, or masses LUNGS: Breath sounds equal, clear to auscultation bilaterally. No wheezes, and no crackles HEART: Regular rate and rhythm, normal S1 and S2, no murmurs, rubs or gallops ABDOMEN: + Lower abdominal tenderness. No guarding, no rebound. No masses EXTREMITIES: + LLE externally rotated and shortened, TTP and proximal L femur, distal pulses and sensation intact NEUROLOGICAL: Cranial nerves II through XII intact. 5/5 strength and sensation in all extremities, Normal speech, normal gait, normal cerebellar function SKIN: Warm, Dry, normal turgor, no rashes or lesions noted. ED Treatment Course - LABORATORY CBC & Chemistry Diagram: 09/02/18 10:40 09/02/18 10:40 - RADIOLOGY Radiology Studies Ordered: Category Date Time Status ABDOMEN & PELVIS CT WITH CONTR [CT] Stat CT Scan 09/02/18 09:[address] W/O CONTR [CT] Stat CT Scan 09/02/18 09:[address] WITHOUT CONTRAST [CT] Stat CT Scan 09/02/18 09:46 Ordered CHEST X-RAY PORTABLE* [RAD] Stat Radiology 09/02/18 09:54 Ordered HIP & PELVIS-LEFT [RAD] Stat Radiology 09/02/18 09:57 Ordered Medical Decision Making - Medical Decision Making 09/02/18 10:13 88 F with fall this morning, now with LLE deformity. Suspect L hip fx. Given pt' s dementia, unable to r/o syncopal episode. Will check labs and EKG. Pt also with abdominal pain and lower abdominal tenderness on exam. Will obtain CT abdomen/pelvis. - Labs - EKG - CT head/c-spine/abd/pelvis - XR chest/pelvis/L hip - Pain control 09/02/18 13:36 XR shows + intertroch L hip fx Images otherwise unremarkable Dr. Lee consulted Pt admitted to hospitalist. *DC/Admit/Observation/Transfer Diagnosis at time of Disposition: Hip fracture - Discharge Dispostion Decision to Admit order: Yes - Referrals Referrals: Clementine Landry MD [Primary Care Provider] - - Patient Instructions - Post Discharge Activity - Attestations Physician Attestion: 09/02/18 13:36 I, Dr. Ignacio Albright MD, attest that this document has been prepared under my direction and personally reviewed by me in its entirety. I further attest, that it accurately reflects all work, treatment, procedures and medical decision -making performed by me.
[2018-09-02] MEDS ORDERED: ACETAMINOPHEN INJECTION 100 ML IVPB ONE (10:41)
[2018-09-02 11:02] LABS: INR 0.95 (0.83-1.09); PROTHROMBIN TIME (PATIENT) 11.2 SEC (9.7-13.0)
[2018-09-02 11:04] LABS: ACTIVATED PTT 25.4 SECONDS (25.2-36.5)
[2018-09-02 11:14] LABS: ALBUMIN 3.7 g/dl (3.4-5.0); ALK PHOS 81 U/L (45-117); ANION GAP 8 MMOL/L (8-16); BILIRUBIN,TOTAL 0.6 mg/dL (0.2-1); BLOOD UREA NITROGEN 16 mg/dL (7-18); CALCIUM 9.2 mg/dL (8.5-10.1); CHLORIDE 108 mmol/L (98-107); CO2 26 mmol/L (21-32); CREATININE 0.7 mg/dL (0.55-1.3); GLUCOSE,RANDOM 128 mg/dL (74-106); POTASSIUM 3.8 mmol/L (3.5-5.1); SGOT/AST 22 U/L (15-37); SGPT/ALT 27 U/L (13-61); SODIUM 142 mmol/L (136-145); TOT PROT 6.4 g/dl (6.4-8.2)
[2018-09-02 11:22] LABS: BASO % 0.4 % (0-2.0); HEMOGLOBIN 13.3 GM/dL (10.7-15.3); LYMPH % 3.4 % (8-40); MCH 29.4 pg (25.7-33.7); MCHC 33.1 g/dl (32.0-36.0); MEAN CELL VOLUME 88.8 fl (80-96); MEAN PLT VOLUME 9.7 fl (7.5-11.1); MONO % 5.6 % (3.8-10.2); NEUT % 90.6 % (42.8-82.8); PLATELET COUNT 190 K/MM3 (134-434); RDW 15.5 % (11.6-15.6); WHITE BLOOD COUNT 15.2 K/mm3 (4.0-10.0)
[2018-09-02 13:42] LABS: EPI CELLS 3.9 /HPF (0-5/HPF); PH,URINE 8.5 (5.0-8.0); URINE APPEARANCE CLOUDY; URINE BACTERIA 4.2 /hpf (NEGATIVE); URINE BILIRUBIN NEGATIVE (NEGATIVE); URINE CASTS 6 /hpf (0-8); URINE COLOR YELLOW; URINE GLUCOSE (UA) NEGATIVE (NEGATIVE); URINE KETONE NEGATIVE (NEGATIVE); URINE LEUK ESTERASE 1+ (NEGATIVE); URINE NITRITE NEGATIVE (NEGATIVE); URINE PROTEIN NEGATIVE (NEGATIVE); URINE RBC 1 /hpf (0-4); URINE UROBILINOGEN 0.2 mg/dL (0.2-1.0); URINE WBC 5 /hpf (0-5)
[2018-09-02] MEDS ORDERED: HYDROmorphone HCL CARPU-JECT 2 MG/1 ML DISP.SYRIN IVPUSH PRN (14:42)
[2018-09-02] MEDS ORDERED: DEXTROSE 5%-NORMAL SALINE 1,000 ML IV SCH (14:45)
[2018-09-02] MEDS ORDERED: ACETAMINOPHEN 1000 MG/100 ML VIAL (NON FORMULARY) IVPB PRN ×3 (14:52→19:47)
[2018-09-02] MEDS ORDERED: HYDROmorphone HCl 2 MG/ML VIAL ONE (15:11)
--- NOTE | 2018-09-02 15:11 | HP ---
CHIEF COMPLAINT: unwitnessed fall, Left intertrochanteric hip fracture PCP: Oscar HAMEED (Prior Dr. Dalton) Incident Commander: Dr. Mortensen HISTORY OF PRESENT ILLNESS: 88 yof with PMHx of dementia, HTN, HLD, GERD, chronic low back pain, BPPV, meningioma, multiple falls, last admission in 05/2018 with rib fx, ?remote small GA/CAD with no concerns in 'years', was found on the floor this AM, awake, complaining of left groin pain. Patient with dementia, perserverating on left groin but not co-operative with further interview. Son Michael at bedside assisting in history. 12 point ROS done, pos for cough, otherwise no fevers, chills, dyspnea, pain, abdominal or urinary symptoms, orthopnea, PND, leg swelling weight gain as discussed with the son. Per son, patient ambulates with walker, fairly active. No c/o exertional chest pain, dyspnea. Regularly follows with Dr. Rouse (cardiology) but no known h/o CHF/orthopnea /PND, recent CAD or chest pain concerns. 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 Family History: Allergies Iodinated Contrast- Oral and IV Dye [IV Dye, Iodine Containing Contrast ] Allergy (Severe, Verified 09/02/18 09:30) " MY BODY IS ON FIRE " meperidine HCl [From Demerol] Allergy (Severe, Verified 09/02/18 09:30) Vomiting morphine Allergy (Severe, Verified 09/02/18 09:30) Vomiting pitavastatin calcium [From Livalo] Allergy (Verified 09/02/18 09:30) venom-honey bee [bee venom (honey bee)] Allergy (Verified 09/02/18 09:30) HOME MEDICATIONS: Home Medications Medication Instructions Recorded Cholecalciferol (Vitamin D3) 2,000 unit PO DAILY #0 tab 06/22/14 [Vitamin D3 -] Aspirin 81 mg PO DAILY 06/07/18 Diltiazem Cd [Cardizem Cd -] 90 mg PO DAILY 06/07/18 Sertraline HCl [Zoloft] 50 mg PO DAILY 06/07/18 Docusate Sodium [Colace -] 300 mg PO HS capsule 06/12/18 Polyethylene Glycol 3350 [Miralax 17 gm PO DAILY bottle 06/12/18 119 gm Btl -] Melatonin 5 mg PO HS 08/08/18 Quetiapine Fumarate [Seroquel -] 25 mg PO HS 08/08/18 REVIEW OF SYSTEMS 12 point ROS attempted but was limited. Patient denies any chest pain, palpitations, nausea, vomiting, dyspnea, abdominal pain or urinary symptoms. C/o pain left groin PHYSICAL EXAMINATION Vital Signs - 24 hr 09/02/18 09/02/18 09/02/18 09:12 09:57 10:48 Temperature 98.7 F Pulse Rate 80 Pulse Rate [ 97 H Radial] Respiratory 16 18 Rate Blood Pressure 171/88 H Blood Pressure 140/80 [Left Arm] O2 Sat by Pulse 100 98 97 Oximetry (%) GENERAL: Awake, alert, oriented to self, son at bedside but not to place or time , in distress and restless from left groin pain HEAD: Normal with no signs of trauma. EYES: Pupils equal, round and reactive to light, extraocular movements intact, sclera anicteric, conjunctiva clear. No lid lag. EARS, NOSE, THROAT: Ears normal, nares patent, oropharynx clear without exudates. Moist mucous membranes. NECK: Normal range of motion, supple , no JVD noted LUNGS: good air entry anteriorly, no rales or wheezing, unable to co-operate with back auscultation HEART: Regular rate and rhythm, normal S1 and S2 ABDOMEN: Soft, nontender, not distended, normoactive bowel sounds, no guarding, no rebound, no masses. No hepatomegaly or splenomegaly. MUSCULOSKELETAL: left groin tenderness, LLE shortened, no edema, positive pulses UPPER EXTREMITIES: 2+ pulses, warm, well-perfused. No cyanosis. No clubbing. No peripheral edema. LOWER EXTREMITIES: LLE shortened, positive pulses, no edema NEUROLOGICAL: AA, oriented to self, son at bedside but not to place and time, facial symmetry, tongue midline, moves all extremities freely except LLE that is limited by pain PSYCHIATRIC: perservating on left groin pain, not fully co-operative SKIN: Warm, dry, normal turgor, no rashes or lesions noted, normal capillary refill. Laboratory Results - last 24 hr 09/02/18 09/02/18 09/02/18 10:06 10:40 10:40 WBC 15.2 H RBC 4.50 Hgb 13.3 Hct 40.0 MCV 88.8 MCH 29.4 MCHC 33.1 RDW 15.5 Plt Count 190 MPV 9.7 Absolute Neuts (auto) 13.7 H Neutrophils % 90.6 H Lymphocytes % 3.4 L D Monocytes % 5.6 Eosinophils % 0.0 D Basophils % 0.4 Nucleated RBC % 0 PT with INR 11.20 INR 0.95 PTT (Actin FS) 25.4 Sodium Potassium Chloride Carbon Dioxide Anion Gap BUN Creatinine Creat Clearance w eGFR Random Glucose Calcium Total Bilirubin AST ALT Alkaline Phosphatase Creatine Kinase 85 Troponin I < 0.02 Total Protein Albumin Urine Color Urine Appearance Urine pH Ur Specific [place] Urine Protein Urine Glucose (UA) Urine Ketones Urine Blood Urine Nitrite Urine Bilirubin Urine Urobilinogen Ur Leukocyte Esterase Urine WBC (Auto) Urine RBC (Auto) Urine Casts (Auto) U Epithel Cells (Auto) Urine Bacteria (Auto) Blood Type Antibody Screen 09/02/18 09/02/18 09/02/18 10:40 10:40 13:00 WBC RBC Hgb Hct MCV MCH MCHC RDW Plt Count MPV Absolute Neuts (auto) Neutrophils % Lymphocytes % Monocytes % Eosinophils % Basophils % Nucleated RBC % PT with INR INR PTT (Actin FS) Sodium 142 Potassium 3.8 Chloride 108 H Carbon Dioxide 26 Anion Gap 8 BUN 16 Creatinine 0.7 Creat Clearance w eGFR 78.79 Random Glucose 128 H Calcium 9.2 Total Bilirubin 0.6 AST 22 ALT 27 Alkaline Phosphatase 81 Creatine Kinase Troponin I Total Protein 6.4 Albumin 3.7 Urine Color Yellow Urine Appearance Cloudy Urine pH 8.5 H D Ur Specific [place] 1.014 Urine Protein Negative Urine Glucose (UA) Negative Urine Ketones Negative Urine Blood Negative Urine Nitrite Negative Urine Bilirubin Negative Urine Urobilinogen 0.2 Ur Leukocyte Esterase 1+ H Urine WBC (Auto) 5 Urine RBC (Auto) 1 Urine Casts (Auto) 6 U Epithel Cells (Auto) 3.9 Urine Bacteria (Auto) 4.2 Blood Type AB POSITIVE Antibody Screen Negative CXR/Hip/pelvis xrays results reviewed CT brain/C-spine/A/P results reviewed EKG: NSR, I inversion in V1-V3, QS in V1-V2, Q in III (unchanged from 08/01/2018) ASSESSMENT/PLAN: 88 yof with PMHx of dementia, HTN, HLD, GERD, chronic low back pain, BPPV, meningioma, multiple falls, last admission in 05/2018 with rib fx, ?remote small GA/CAD with no concerns in 'years', admitted with unwitnessed fall and acute left displaced intertrochanteric hip fracture -Acute left displaced intertrochanteric hip fracture -Unwitnessed fall (h/o multiple prior falls) -HTN -HLD -GERD -Chronic low back pain -BPPV -Meningioma Plan: Discussed with orthopedic Dr. Lee, plan for surgical intervention. Pain control with dilaudid (tolerated oxycodone well in the past, morphine allergy listed as vomiting) and tylenol IV prn for pain. NPO for now. IV hydration. No evidence of chest pain, dyspnea, arrhythmia, CHF, ACS. EKG unchanged. Troponin neg. No evidence of heart failure. 2D echo from 05/2018 reviewed. No additional cardiac work up warranted for this urgent level of surgery. Patient intermediate risk from cardiac standpoint for this urgent level of surgery. RCRI 0-1 (?Unclear remote h/o small GA). Patient at at 0.4-1% risk for major cardiac complications (cardiac , nonfatal GA< nonfatal cardiac arrest, postoperative cardiogenic pulmonary edema , CHF) in the jane-operative period. Risks of withholding surgery higher in this ambulatory female with no absolute contraindications. Discussed with janes Rodriguez in detail at bedside and all questions answered, he relays understanding. DVTPPX per orthopedic Code status: DNR/DNI (Per [facility] records), confirmed with janes Rodriguez at bedside. Admit to med surg. Total admit time 65 min. Visit type - Emergency Visit Emergency Visit: Yes ED Registration Date: 09/02/18 Care time: The patient presented to the Emergency Department on the above date and was hospitalized for further evaluation of their emergent condition. - New Patient This patient is new to me today: Yes Date on this admission: 09/02/18 - Critical Care Critical Care patient: No
--- NOTE | 2018-09-02 15:30 | CONSULT ---
Consult - text type - Consultation Consultation Note: ORTHOPEDIC SURGERY CONSULTATION NOTE Department of Orthopedic Surgery HISTORY OF PRESENT ILLNESS Ms. Maldonado is a 88 year old female with a PMHx of dementia, HTN, HLD, GERD, chronic low back pain, BPPV, meningioma, multiple falls, last admission in 2018 with rib fx, questionable remote small MD/CAD with no concerns in 'years', was found on the floor this AM, awake, complaining of left groin pain. The orthopedic service was consulted for a left hip fracture. The injury occurred this morning at [facility]. The patient is a poor historian, but her son (power of title attorney/hcp) is at bedside. Denies any other injuries. Denies numbness, tingling or other constitutional complaints. Denies tobacco use, drug use, alcohol abuse. The patient uses a walker as an assistive device at baseline. FAMILY HISTORY non-contributory REVIEW OF SYMPTOMS A twelve-point review of systems was performed and was negative except as noted in HPI. PHYSICAL EXAM Constitutional: Alert and uncomfortable secondary to pain in left hip. Appears well-developed and well-nourished. Right Upper Extremity: Skin warm, dry, and intact; no lesions, rashes or ulcers noted. Muscle mass equal and symmetric to contralateral side. No atrophy noted. No masses or effusions noted. No tenderness to palpation all joints; nontender throughout rest of extremity. Full passive and active ROM, free from pain. Joints stable with no pathologic laxity. M/R/U/MSK/AX motor intact; SILT distally; 2+ radial pulses; Cap refill brisk. Tone and reflexes normal. Left Upper Extremity: Skin warm, dry, and intact; no lesions, rashes or ulcers noted. Muscle mass equal and symmetric to contralateral side. No atrophy noted. No masses or effusions noted. No tenderness to palpation all joints; nontender throughout rest of extremity. Full passive and active ROM, free from pain. Joints stable with no pathologic laxity. M/R/U/MSK/AX motor intact; SILT distally; 2+ radial pulses; Cap refill brisk. Tone and reflexes normal. Right Lower Extremity: Skin warm, dry, and intact; no lesions, rashes or ulcers noted. Muscle mass equal and symmetric to contralateral side. No atrophy noted. No masses or effusions noted. No tenderness to palpation all joints; nontender throughout rest of extremity. No cords or calf tenderness No significant calf/ankle edema. Full passive and active ROM, free from pain. Joints stable with no pathologic laxity. EHL/TA/GS motor intact; SILT distally; 2+ DP pulses; Cap refill brisk. Tone and reflexes normal. Able to SLR; Negative log roll test. Left Lower Extremity: Skin warm, dry, and intact; no lesions, rashes or ulcers noted. Muscle mass equal and symmetric to contralateral side. No atrophy noted. No masses or effusions noted. Tender to palpation at left greater trochanter; nontender throughout rest of extremity. No cords or calf tenderness No significant calf/ankle edema. Full passive and active ROM, free from pain. Joints stable with no pathologic laxity. EHL/TA/GS motor intact; SILT distally; 2+ DP pulses; Cap refill brisk. Tone and reflexes normal. Unable to SLR; Positive log roll test. 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 History of Recent Travel No Allergies Allergy/AdvReac Type Severity Reaction Status Date / Time Iodinated Contrast- Oral and Allergy Severe Verified 09/02/18 09:30 IV Dye [IV Dye, Iodine Containing Contrast ] meperidine HCl [From Demerol] Allergy Severe Vomiting Verified 09/02/18 09:30 morphine Allergy Severe Vomiting Verified 09/02/18 09:30 pitavastatin calcium Allergy Verified 09/02/18 09:30 [From Livalo] venom-honey bee Allergy Verified 09/02/18 09:30 [bee venom (honey bee)] Active Medications Generic Name Dose Route Start Last Admin Trade Name Freq PRN Reason Stop Dose Admin Acetaminophen 1,000 mg 09/02/18 14:52 Ofirmev Injection - IVPB Q6H PRN PAIN LEVEL 1-5 Cholecalciferol 2,000 unit 09/03/18 10:00 Vitamin D3 - PO DAILY [facility] Diltiazem HCl 90 mg 09/03/18 10:00 Cardizem Cd - PO DAILY [facility] Docusate Sodium 300 mg 09/02/18 22:00 Colace - PO HS NATALIE Hydromorphone HCl 1 mg 09/02/18 14:42 09/02/18 15:17 Dilaudid Injection - IVPUSH 1 mg Q4H PRN Administration PAIN LEVEL 6-10 Dextrose/Sodium Chloride 1,000 mls @ 83 mls/hr 09/02/18 14:45 09/02/18 15:16 D5-Ns - IV 83 mls/hr ASDIR NATALIE Administration Melatonin 5 mg 09/02/18 22:00 Melatonin PO HS NATALIE Polyethylene Glycol 17 gm 09/02/18 22:00 Miralax (For Daily Use) - PO BID NATALIE Quetiapine Fumarate 25 mg 09/02/18 22:00 Seroquel - PO HS NATALIE Sertraline HCl 50 mg 09/03/18 10:00 Zoloft - PO DAILY NATALIE Vital Signs (last) Temp Pulse Resp BP Pulse Ox 98.7 F 89 24 H 130/76 97 09/02/18 09:12 09/02/18 15:04 09/02/18 15:04 09/02/18 15:04 09/02/18 15:04 Intake and Output 08/31/18 09/01/18 09/02/18 23:59 23:59 23:59 Output Total 90 Balance -90 Output: Urine 90 Oliva 90 Other: Voiding Method Bedpan Weight 109 lb Height 4 ft 11 in Body Mass Index (BMI) 22.0 Laboratory 09/02/18 10:40 09/02/18 10:40 PT with INR 11.20 SEC (9.7-13.0) 09/02/18 10:40 PTT (Actin FS) 25.4 SECONDS (25.2-36.5) 09/02/18 10:40 IMAGING I personally reviewed all radiographs, CT, and other imaging. They demonstrate a left intertrochanteric hip fracture. ASSESSMENT AND PLAN Ms. Maldonado is a 88 year old female presenting status post fall this morning with a left sided intertrochanteric hip fracture. We have reviewed the imaging and clinical findings in detail, as well as their potential implications. This is an operative fracture. Admit NPO NWB LLE CBC/BMP/Coags Type and Screen/2 units PRBC on hold IV fluids EKG CXR UA - Hold anticoagulation Plan for OR this evening - Discussed with Son at bedside; informed consent obtained. All questions were answered. Thank you for involving our team in the care of this patient. Please call us at [phone] with questions
[2018-09-02] MEDS ORDERED: BUPIVACAINE HCL/PF 0.5% (5MG/ML) 10 ML VIAL ONE (16:29)
[2018-09-02] MEDS ORDERED: ceFAZolin SODIUM 1 GM VIAL ONE (17:38)
[2018-09-02] MEDS ORDERED: ceFAZolin SODIUM 1 GM VIAL IVPB ONE (17:49)
--- NOTE | 2018-09-02 18:51 | OPR ---
DATE OF SURGERY: 09/02/18 TITLE OF OPERATION: LEFT cephalomedullary nail fixation (CPT 46167) PREOPERATIVE DIAGNOSIS: LEFT intertrochanteric hip fracture POSTOPERATIVE DIAGNOSIS: LEFT intertrochanteric hip fracture SURGEON: Lamont Lee DO CLERICAL MANAGER: Claudio Andres DO ANESTHESIA: Spinal anesthesia SPECIMEN (BACTERIOLOGICAL, PATHOLOGICAL OR OTHER): None PROSTHETIC DEVICE/IMPLANT: 125 degree x 10 mm x 170 mm Shushan Gamma nail 10.5 x 100 mm lag screw 5 x 35 mm locking screw COMPLICATIONS: none EBL: 50 mL INDICATIONS FOR SURGERY: Ms. Maldonado is a 88 year old female who presented in the preoperative setting with a chief complaint of left hip fracture. Based on their pre-injury level of activity, surgical treatment was discussed with her son, who is her health care proxy and power of securities attorney. The risks and benefits of surgery and anesthesia were discussed in detail including but not limited to , pain, bleeding, infection, scarring, damage to vessels and nerves, failure to obtain the desired result, failure to heal, failure to return to previous activity level. Understanding the risks and benefits, her son Mr. Maldonado opted to proceed with surgical management and signed informed consent. SURGEON'S NARRATIVE: Ms. Maldonado was seen in the preoperative area. Their left side was marked for surgery and consent was reviewed and signed. She was then brought back to the operating room. She was transferred to the OR table. All bony prominences were well padded. A time-out was held and all team members agreed on the operative side and planned procedure. Spinal anesthesia was then induced. Preoperative prophylactic antibiotics were indicated and Ancef 1gm were given prior to and within one hour of any incision. Sequential compression devices were placed on the contralateral extremity for the duration of the case as part of a comprehensive DVT prophylaxis protocol consisting of intraoperative SCDs, early postoperative mobilization and :Lovenox for chemoprophylaxis. Under fluoroscopy, the fracture was reduced by traction and internal rotation with slight adduction. After reduction was achieved, the hip was prepped and draped in the usual sterile fashion with application of a shower curtain. A small incision was made over directly over the proximal aspect of the hip, centered over just proximal to the prominence of the tip of the greater trochanter. This was done using a 10 blade. It was carried through the skin and subcutaneous tissues. Further dissection was performed using the Thompson scissors. The guide pin for the Gamma Nail System was then inserted from the tip of the greater trochanter and into the proximal femoral canal. The opening reamer was then placed over the guidepin and used to make an opening in the proximal femur. The guidepin was then removed. A 125-degree x 10mm x 170 mm gamma nail was selected. The Gamma Nail was inserted into the femoral canal into its appropriate position. Using the proximal targeting device, a 1.5-cm longitudinal incision was made directly over the lateral aspect of the proximal thigh using the 10 blade, with dissection using the hemostat to the lateral femur. A guidepin for the lag screw was then inserted from the lateral femur across the fracture site and into the femoral head and its appropriate position verified using C-arm guidance in both the AP and lateral planes. After pre-drilling, a 100-mm lag screw was then inserted over the guidepin and across the fracture site for definitive fixation. The guidepin was then removed. A set screw was then inserted into the top of the nail and completed turned, then turned back a half turn. The fracture site was appropriately compressed. The proximal targeting system was then removed. Attention was then turned to placing the distal screw. The guide was adjusted and using the 10 blade an incision was made directly over the lateral aspect of the thigh, with dissection using the hemostat to the lateral femur. A guidepin for the distal locking screw was then inserted from the lateral femur across the fracture site and into the femoral shaft and its appropriate position verified using C-arm guidance in both the AP and lateral planes. After pre- drilling, a 35-mm locking screw was then inserted over the guidepin and across the nail for definitive fixation. The guidepin was then removed. Appropriate position of the interlocking screws, the lag screw, the nail, and the fracture site was verified using C-arm guidance. Attention was then turned to closure. The incisions were copiously irrigated with sterile saline. Deep tissue was closed with 0 vicryl. Subcutaneous closure was achieved with 2-0 vicryl. Skin was closed with shauna, and aquacell dressings were applied. At closure, all needle counts and sponge counts were correct. The toes were warm and well-perfused at the end of the case. Ms. Maldonado was then awoken and brought to the postoperative recovery room in stable condition. There was no complications immediately apparent. Claudio Andres DO was present and scrubbed throughtout the entire case as first- psychiatric assistant as there was no resident or qualified rn first assist available. POSTOPERATIVE PLAN - Weightbearing as tolerated LLE - Physical therapy daily - Pain control with oxycodone 5-10mg by mouth every 3-6 hours as needed for pain - Itching control with benadryl (diphenhydramine) by mouth every 6 hours as needed for itching - Comprehensive DVT prophylaxis consists of intraoperative SCDs, early postoperative mobilization and Lovenox 40mg Q Daily for 30 days for chemoprophylaxis. - Change dressing in 7 days post op - DC Shauna in 14 days post op - Follow-up as an outpatient in 2 weeks for wound check and X-rays. - Will need X-rays taken at rehab center the day before she arrives in my office as outpatient. Lamont Lee DO
[2018-09-02] MEDS ORDERED: ONDANSETRON 4 MG/2 ML VIAL IVPUSH PRN (18:56)
[2018-09-02] MEDS ORDERED: LACTATED RINGERS SOLUTION 1,000 ML IV SCH ×3 (19:00→19:47)
[2018-09-02] MEDS ORDERED: HYDROmorphone HCl 2 MG/ML VIAL IVPB PRN (19:47)
[2018-09-02 19:54] LABS: ANION GAP 6 MMOL/L (8-16); BLOOD UREA NITROGEN 17 mg/dL (7-18); CALCIUM 8.5 mg/dL (8.5-10.1); CHLORIDE 111 mmol/L (98-107); CO2 28 mmol/L (21-32); GLUCOSE,RANDOM 174 mg/dL (74-106); POTASSIUM 4.1 mmol/L (3.5-5.1); SODIUM 144 mmol/L (136-145)
[2018-09-02 19:56] LABS: HEMATOCRIT 36.5 % (32.4-45.2); MCH 29.2 pg (25.7-33.7); MCHC 32.8 g/dl (32.0-36.0); MEAN CELL VOLUME 89.1 fl (80-96); RBC 4.09 M/mm3 (3.60-5.2); RDW 15.4 % (11.6-15.6); WHITE BLOOD COUNT 14.1 K/mm3 (4.0-10.0)
[2018-09-02] MEDS: DOCUSATE SODIUM 100 MG CAPSULE (FP) PO SCH (21:53)
[2018-09-02] MEDS: QUEtiapine FUMARATE 25 MG TABLET (FP) PO SCH (21:54)
[2018-09-02] MEDS: MELATONIN 5 MG TABLETS PO SCH (21:54)
[2018-09-02] MEDS: POLYETHYLENE GLYCOL 3350 119 GM BTL PO SCH (21:54)
[2018-09-02] MEDS ORDERED: DOCUSATE SODIUM 100 MG CAPSULE (FP) PO SCH (22:00)
[2018-09-02] MEDS ORDERED: QUEtiapine FUMARATE 25 MG TABLET (FP) PO SCH (22:00)
[2018-09-02] MEDS ORDERED: POLYETHYLENE GLYCOL 3350 119 GM BTL PO SCH (22:00)
[2018-09-02] MEDS ORDERED: MELATONIN 5 MG TABLETS PO SCH (22:00)
[2018-09-02 23:08] VITALS: BMI 21.8
[2018-09-03] MEDS ORDERED: CEFAZOLIN 1 GM/D5W 1 GM/50 ML BAG IVPB SCH (01:49)
[2018-09-03] MEDS: CEFAZOLIN 1 GM/D5W 1 GM/50 ML BAG IVPB SCH ×2 (02:48→09:55)
[2018-09-03] MEDS ORDERED: dilTIAZem HCL 30 MG TABLET (FP) PO SCH (06:00)
[2018-09-03 08:00] LABS: BASO % 0.3 % (0-2.0); HEMATOCRIT 33.1 % (32.4-45.2); HEMOGLOBIN 10.8 GM/dL (10.7-15.3); MCH 29.1 pg (25.7-33.7); MCHC 32.7 g/dl (32.0-36.0); MEAN PLT VOLUME 9.5 fl (7.5-11.1); MONO % 10.5 % (3.8-10.2); NEUT % 73.2 % (42.8-82.8); PLATELET COUNT 186 K/MM3 (134-434); RBC 3.72 M/mm3 (3.60-5.2); RDW 15.4 % (11.6-15.6); WHITE BLOOD COUNT 13.9 K/mm3 (4.0-10.0)
[2018-09-03 08:34] LABS: ALBUMIN 3.4 g/dl (3.4-5.0); ALK PHOS 68 U/L (45-117); ANION GAP 8 MMOL/L (8-16); BILIRUBIN,TOTAL 1.1 mg/dL (0.2-1); BLOOD UREA NITROGEN 22 mg/dL (7-18); CALCIUM 9.1 mg/dL (8.5-10.1); CHLORIDE 111 mmol/L (98-107); CO2 26 mmol/L (21-32); GLUCOSE,RANDOM 97 mg/dL (74-106); MAGNESIUM 2.2 mg/dL (1.8-2.4); PHOSPHOROUS 2.3 mg/dL (2.5-4.9); POTASSIUM 4.3 mmol/L (3.5-5.1); SGOT/AST 28 U/L (15-37); SGPT/ALT 25 U/L (13-61); SODIUM 145 mmol/L (136-145); TOT PROT 5.8 g/dl (6.4-8.2)
[2018-09-03] MEDS: CHOLECALCIFEROL (VITAMIN D3) 1,000 UNIT TABLET (FP) PO SCH ×2 (09:58→14:27)
[2018-09-03] MEDS: POLYETHYLENE GLYCOL 3350 119 GM BTL PO SCH ×3 (09:58→22:18)
[2018-09-03] MEDS: SERTRALINE HCL 50 MG TABLET (FP) PO SCH ×2 (09:59→14:27)
[2018-09-03] MEDS ORDERED: CHOLECALCIFEROL (VITAMIN D3) 1,000 UNIT TABLET (FP) PO SCH (10:00)
[2018-09-03] MEDS ORDERED: ENOXAPARIN NA (PORCINE) 40 MG/0.4 ML DISP.SYRIN SQ SCH ×2 (10:00)
[2018-09-03] MEDS ORDERED: SERTRALINE HCL 50 MG TABLET (FP) PO SCH (10:00)
--- NOTE | 2018-09-03 10:57 | PN ---
Teaching Attending Note Name of Resident: Lidya Robert ATTENDING PHYSICIAN STATEMENT I saw and evaluated the patient. I reviewed the resident's note and discussed the case with the resident. I agree with the resident's findings and plan as documented with exceptions below. SUBJECTIVE: Patient seen and examined. Sleeping but arousable, refuses to participate in further interview currently. OBJECTIVE: Vital Signs Period Temp Pulse Resp BP Sys/Barber Pulse Ox Last 24 Hr 97.6 F-98.2 F 81-95 10-24 107-136/59-76 94-100 Intake & Output 08/31/18 09/01/18 09/02/18 09/03/18 23:59 23:59 23:59 23:59 Intake Total 250 Output Total 1340 300 Balance -1090 -300 Weight 108 lb 3 oz General: sleeping comfortable, arousable Chest: decreased effort, limited exam as patient would not participate currently , no rales or wheezing anteriorly Abdomen:Soft, NT, ND Extremities: LLE wound dressing clean, no pedal edema, positive pulses Home Medications Medication Instructions Recorded Cholecalciferol (Vitamin D3) 2,000 unit PO DAILY #0 tab 06/22/14 [Vitamin D3 -] Aspirin 81 mg PO DAILY 06/07/18 Diltiazem Cd [Cardizem Cd -] 90 mg PO DAILY 06/07/18 Sertraline HCl [Zoloft] 50 mg PO DAILY 06/07/18 Docusate Sodium [Colace -] 300 mg PO HS capsule 06/12/18 Polyethylene Glycol 3350 [Miralax 17 gm PO DAILY bottle 06/12/18 119 gm Btl -] Melatonin 5 mg PO HS 08/08/18 Quetiapine Fumarate [Seroquel -] 25 mg PO HS 08/08/18 Active Medications Acetaminophen (Ofirmev Injection -) 750 mg IVPB Q6H PRN PRN Reason: PAIN LEVEL 1-5 Last Admin: 09/03/18 02:01 Dose: 750 mg Cholecalciferol (Vitamin D3 -) 2,000 unit PO DAILY NATALIE Last Admin: 09/03/18 09:58 Dose: Not Given Diltiazem HCl (Cardizem -) 30 mg PO TID NATALIE Docusate Sodium (Colace -) 300 mg PO HS NATALIE Last Admin: 09/02/18 21:53 Dose: 300 mg Enoxaparin Sodium (Lovenox -) 40 mg SQ DAILY [facility] Hydromorphone HCl (Dilaudid Vial -) 0.5 mg IVPB Q6H PRN PRN Reason: PAIN LEVEL 6-10 Last Admin: 09/03/18 06:49 Dose: 0.5 mg Lactated Ringer's (Lactated Ringers Solution) 1,000 mls @ 75 mls/hr IV ASDIR [facility] Last Admin: 09/02/18 21:52 Dose: 75 mls/hr Melatonin (Melatonin) 5 mg PO [facility] Last Admin: 09/02/18 21:54 Dose: Not Given Polyethylene Glycol (Miralax (For Daily Use) -) 17 gm PO BID [facility] Last Admin: 09/03/18 09:58 Dose: Not Given Potassium Phos/Sodium Phos (Phos-Nak Packet -) 2 packet PO BID [facility] Stop: 09/03/18 22:01 Quetiapine Fumarate (Seroquel -) 25 mg PO [facility] Last Admin: 09/02/18 21:54 Dose: 25 mg Sertraline HCl (Zoloft -) 50 mg PO DAILY [facility] Last Admin: 09/03/18 09:59 Dose: Not Given Laboratory Results - last 24 hr 09/02/18 09/02/18 09/02/18 10:06 10:40 10:40 WBC 15.2 H RBC 4.50 Hgb 13.3 Hct 40.0 MCV 88.8 MCH 29.4 MCHC 33.1 RDW 15.5 Plt Count 190 MPV 9.7 Absolute Neuts (auto) 13.7 H Neutrophils % 90.6 H Lymphocytes % 3.4 L D Monocytes % 5.6 Eosinophils % 0.0 D Basophils % 0.4 Nucleated RBC % 0 Manual Slide Review Platelet Comment PT with INR 11.20 INR 0.95 PTT (Actin FS) 25.4 Sodium Potassium Chloride Carbon Dioxide Anion Gap BUN Creatinine Creat Clearance w eGFR Random Glucose Calcium Phosphorus Magnesium Total Bilirubin AST ALT Alkaline Phosphatase Creatine Kinase 85 Troponin I < 0.02 Total Protein Albumin Urine Color Urine Appearance Urine pH Ur Specific [place] Urine Protein Urine Glucose (UA) Urine Ketones Urine Blood Urine Nitrite Urine Bilirubin Urine Urobilinogen Ur Leukocyte Esterase Urine WBC (Auto) Urine RBC (Auto) Urine Casts (Auto) U Epithel Cells (Auto) Urine Bacteria (Auto) Blood Type Antibody Screen 09/02/18 09/02/18 09/02/18 10:40 10:40 13:00 WBC RBC Hgb Hct MCV MCH MCHC RDW Plt Count MPV Absolute Neuts (auto) Neutrophils % Lymphocytes % Monocytes % Eosinophils % Basophils % Nucleated RBC % Manual Slide Review Platelet Comment PT with INR INR PTT (Actin FS) Sodium 142 Potassium 3.8 Chloride 108 H Carbon Dioxide 26 Anion Gap 8 BUN 16 Creatinine 0.7 Creat Clearance w eGFR 78.79 Random Glucose 128 H Calcium 9.2 Phosphorus Magnesium Total Bilirubin 0.6 AST 22 ALT 27 Alkaline Phosphatase 81 Creatine Kinase Troponin I Total Protein 6.4 Albumin 3.7 Urine Color Yellow Urine Appearance Cloudy Urine pH 8.5 H D Ur Specific [place] 1.014 Urine Protein Negative Urine Glucose (UA) Negative Urine Ketones Negative Urine Blood Negative Urine Nitrite Negative Urine Bilirubin Negative Urine Urobilinogen 0.2 Ur Leukocyte Esterase 1+ H Urine WBC (Auto) 5 Urine RBC (Auto) 1 Urine Casts (Auto) 6 U Epithel Cells (Auto) 3.9 Urine Bacteria (Auto) 4.2 Blood Type AB POSITIVE Antibody Screen Negative 09/02/18 09/02/18 09/03/18 19:25 19:25 07:00 WBC 14.1 H 13.9 H RBC 4.09 3.72 Hgb 12.0 10.8 Hct 36.5 33.1 MCV 89.1 89.0 MCH 29.2 29.1 MCHC 32.8 32.7 RDW 15.4 15.4 Plt Count No Result Required. 186 MPV 9.5 Absolute Neuts (auto) 10.2 H Neutrophils % 73.2 Lymphocytes % 16.0 D Monocytes % 10.5 H D Eosinophils % 0.0 Basophils % 0.3 Nucleated RBC % 0 Manual Slide Review Platelet Comment Slt plt clumping PT with INR INR PTT (Actin FS) Sodium 144 Potassium 4.1 Chloride 111 H Carbon Dioxide 28 Anion Gap 6 L BUN 17 Creatinine 1.0 Creat Clearance w eGFR 52.20 Random Glucose 174 H Calcium 8.5 Phosphorus Magnesium Total Bilirubin AST ALT Alkaline Phosphatase Creatine Kinase Troponin I Total Protein Albumin Urine Color Urine Appearance Urine pH Ur Specific [place] Urine Protein Urine Glucose (UA) Urine Ketones Urine Blood Urine Nitrite Urine Bilirubin Urine Urobilinogen Ur Leukocyte Esterase Urine WBC (Auto) Urine RBC (Auto) Urine Casts (Auto) U Epithel Cells (Auto) Urine Bacteria (Auto) Blood Type Antibody Screen 09/03/18 07:00 WBC RBC Hgb Hct MCV MCH MCHC RDW Plt Count MPV Absolute Neuts (auto) Neutrophils % Lymphocytes % Monocytes % Eosinophils % Basophils % Nucleated RBC % Manual Slide Review Platelet Comment PT with INR INR PTT (Actin FS) Sodium 145 Potassium 4.3 Chloride 111 H Carbon Dioxide 26 Anion Gap 8 BUN 22 H Creatinine 1.0 Creat Clearance w eGFR 52.20 Random Glucose 97 Calcium 9.1 Phosphorus 2.3 L Magnesium 2.2 Total Bilirubin 1.1 H AST 28 ALT 25 Alkaline Phosphatase 68 Creatine Kinase Troponin I Total Protein 5.8 L Albumin 3.4 Urine Color Urine Appearance Urine pH Ur Specific [place] Urine Protein Urine Glucose (UA) Urine Ketones Urine Blood Urine Nitrite Urine Bilirubin Urine Urobilinogen Ur Leukocyte Esterase Urine WBC (Auto) Urine RBC (Auto) Urine Casts (Auto) U Epithel Cells (Auto) Urine Bacteria (Auto) Blood Type Antibody Screen ASSESSMENT AND PLAN: 88 yof with PMHx of dementia, HTN, HLD, GERD, chronic low back pain, BPPV, meningioma, multiple falls, last admission in 05/2018 with rib fx, ?remote small AR/CAD with no concerns in 'years', admitted with unwitnessed fall and acute left displaced intertrochanteric hip fracture -Acute left displaced intertrochanteric hip fracture s/p gamma nail fixation -Unwitnessed fall (h/o multiple prior falls) -HTN -HLD -GERD -Chronic low back pain -BPPV -Meningioma Plan: Doing well post op pain control dialudid/tylenol prn, transition to oxycodone over 24-48 hours Encourage OOB, PT. Voiding trial once ambulatory. Aggressive bowel regimen. Incentive spirometry. DVTPPX on lovenox per ortho Continue cardizem (long acting not available here in90mg dosage)/seroquel/ zoloft. Code status: DNR/DNI Dispo anticipate SNF vs back to [facility] in 1-2 days if no concerns. Discussed with nursing.
[2018-09-03] MEDS ORDERED: ACETAMINOPHEN 325 MG TABLET (FP) PO PRN (11:03)
[2018-09-03] MEDS ORDERED: oxyCODONE HCL 5 MG TABLET PO PRN (11:03)
--- NOTE | 2018-09-03 12:26 | EKG ---
Test Reason : Blood Pressure : / mmHG Vent. Rate : 093 BPM Atrial Rate : 093 BPM P-R Int : 150 ms QRS Dur : 080 ms QT Int : 394 ms P-R-T Axes : 061 005 056 degrees QTc Int : 489 ms NORMAL SINUS RHYTHM POSSIBLE LEFT ATRIAL ENLARGEMENT SEPTAL INFARCT , AGE UNDETERMINED POSSIBLE LATERAL INFARCT , AGE UNDETERMINED POSSIBLE INFERIOR INFARCT (CITED ON OR BEFORE 07-JUN-2018) T WAVE ABNORMALITY, CONSIDER ANTERIOR ISCHEMIA ABNORMAL ECG WHEN COMPARED WITH ECG OF 08-AUG-2018 19:28, NO SIGNIFICANT CHANGE WAS FOUND Confirmed by RAY TAN MD ([id number]) on 09/03/2018 12:26:04 PM Referred By: Confirmed By:RAY TAN MD
[2018-09-03] MEDS: NAPH,MB-DB/K PH,MBDB POWDER PACKET PO SCH ×2 (14:26→22:11)
[2018-09-03] MEDS: dilTIAZem HCL 30 MG TABLET (FP) PO SCH ×4 (14:27→22:17)
[2018-09-03] MEDS: ENOXAPARIN NA (PORCINE) 30 MG/0.3 ML DISP.SYRIN SQ SCH (16:27)
[2018-09-03] MEDS: KETOROLAC TROMETHAMINE 15 MG/ML VIAL IVPUSH PRN (16:27)
--- NOTE | 2018-09-03 16:59 | PN ---
Physical Exam: SUBJECTIVE: Patient seen and examined, sleepy, not answering questions OBJECTIVE: Vital Signs Period Temp Pulse Resp BP Sys/Barber Pulse Ox Last 24 Hr 97.6 F-98.6 F 81-95 10-18 107-136/56-72 94-100 GENERAL: The patient sleeping, lethargic, in no acute distress. HEAD: Normal with no signs of trauma. EYES: PERRL, conjunctiva clear. ENT: Oropharynx clear without exudates, moist mucous membranes. NECK: Trachea midline, full range of motion, supple. LUNGS: Breath sounds equal, clear to auscultation bilaterally, no wheezes, no crackles, no accessory muscle use. HEART: Regular rate and rhythm, S1, S2 without murmur, rub or gallop. ABDOMEN: Soft, nontender, nondistended, normoactive bowel sounds, no guarding, no rebound, no hepatosplenomegaly, no masses. EXTREMITIES: 2+ pulses, warm, no edema. NEUROLOGICAL: Not answering questions. PSYCH: Sleeping SKIN: Warm, dry, normal turgor, no rashes, dressing applied Laboratory Results - last 24 hr 09/02/18 09/02/18 09/03/18 19:25 19:25 07:00 WBC 14.1 H 13.9 H RBC 4.09 3.72 Hgb 12.0 10.8 Hct 36.5 33.1 MCV 89.1 89.0 MCH 29.2 29.1 MCHC 32.8 32.7 RDW 15.4 15.4 Plt Count No Result Required. 186 MPV 9.5 Absolute Neuts (auto) 10.2 H Neutrophils % 73.2 Lymphocytes % 16.0 D Monocytes % 10.5 H D Eosinophils % 0.0 Basophils % 0.3 Nucleated RBC % 0 Manual Slide Review Platelet Comment Slt plt clumping Sodium 144 Potassium 4.1 Chloride 111 H Carbon Dioxide 28 Anion Gap 6 L BUN 17 Creatinine 1.0 Creat Clearance w eGFR 52.20 Random Glucose 174 H Calcium 8.5 Phosphorus Magnesium Total Bilirubin AST ALT Alkaline Phosphatase Total Protein Albumin 09/03/18 07:00 WBC RBC Hgb Hct MCV MCH MCHC RDW Plt Count MPV Absolute Neuts (auto) Neutrophils % Lymphocytes % Monocytes % Eosinophils % Basophils % Nucleated RBC % Manual Slide Review Platelet Comment Sodium 145 Potassium 4.3 Chloride 111 H Carbon Dioxide 26 Anion Gap 8 BUN 22 H Creatinine 1.0 Creat Clearance w eGFR 52.20 Random Glucose 97 Calcium 9.1 Phosphorus 2.3 L Magnesium 2.2 Total Bilirubin 1.1 H AST 28 ALT 25 Alkaline Phosphatase 68 Total Protein 5.8 L Albumin 3.4 Active Medications Generic Name Dose Route Start Last Admin Trade Name Freq PRN Reason Stop Dose Admin Acetaminophen 650 mg 09/03/18 11:03 Tylenol - PO Q4H PRN PAIN LEVEL 1-5 Cholecalciferol 2,000 unit 09/03/18 10:00 09/03/18 14:27 Vitamin D3 - PO 2,000 unit DAILY NATALIE Administration Diltiazem HCl 30 mg 09/03/18 06:00 09/03/18 14:27 Cardizem - PO 30 mg TID NATALIE Administration Docusate Sodium 300 mg 09/02/18 22:00 09/02/18 21:53 Colace - PO 300 mg HS NATALIE Administration Enoxaparin Sodium 30 mg 09/03/18 15:15 09/03/18 16:27 Lovenox - SQ 30 mg DAILY NATALIE Administration Hydromorphone HCl 0.5 mg 09/03/18 11:05 Dilaudid Vial - IVPB Q6H PRN PAIN LEVEL 6-10 Ketorolac Tromethamine 15 mg 09/03/18 16:21 09/03/18 16:27 Toradol Injection - IVPUSH 09/08/18 16:20 15 mg Q6H PRN Administration PAIN LEVEL 7 - 10 Melatonin 5 mg 09/02/18 22:00 09/02/18 21:54 Melatonin PO Not Given HS NATALIE Oxycodone HCl 5 mg 09/03/18 11:03 Roxicodone - PO Q4H PRN PAIN LEVEL 6-10 Polyethylene Glycol 17 gm 09/02/18 22:00 09/03/18 09:58 Miralax (For Daily Use) - PO Not Given BID NATALIE Potassium Phos/Sodium Phos 2 packet 09/03/18 11:00 09/03/18 14:26 Phos-Nak Packet - PO 09/03/18 22:01 2 packet BID NATALIE Administration Quetiapine Fumarate 25 mg 09/02/18 22:00 09/02/18 21:54 Seroquel - PO 25 mg HS NATALIE Administration Senna 2 tab 09/03/18 22:00 Senna - PO HS NATALIE Sertraline HCl 50 mg 09/03/18 10:00 09/03/18 14:27 Zoloft - PO 50 mg DAILY NATALIE Administration ASSESSMENT/PLAN: 88 yof with PMHx of dementia, HTN, HLD, GERD, chronic low back pain, BPPV, meningioma, multiple falls, last admission in 05/2018 with rib fx, ?remote small CA/CAD admitted with unwitnessed fall and acute left displaced intertrochanteric hip fracture. Acute left displaced intertrochanteric hip fracture -s/p surgery yesterday, woke up today, she ate 25 % of her lunch, then became agitated -received 1mg and 2.5 mg HAldol IM, still agitated, given Seroquel 25 mg PO, vest -spiked fever 101F, blood cultures, urine cultures, IV Tylenol given, will monitor -CXR stat -continue Dilaulid and Toradol, allergy to Morphine -cont LR at 75 cc/hr -f/u Orthopedic Surgery -on 4 L NC sat 97 -dressing changes -cont Oliva h/o multiple prior falls -fall risk precautions -bed alarm -vest and medicated for agitation HTN -monitor HLD -no meds GERD -no meds BPPV -stable Meningioma -stable F/E/N: no.no changes/npo DVT PPX: Lovenox Dispo: med surg DNR/DNI Problem List - Problems (1) Hip fracture Code(s): S72.009A - FRACTURE OF UNSP PART OF NECK OF UNSP FEMUR, INIT (2) Abnormal chest xray Code(s): R93.8 - ABNORMAL FINDINGS ON DIAGNOSTIC IMAGING OF RISHABH * DO NOT USE * (3) Aortic regurgitation Code(s): I35.1 - NONRHEUMATIC AORTIC (VALVE) INSUFFICIENCY (4) Cognitive impairment Code(s): R41.89 - OTH SYMPTOMS AND SIGNS W COGNITIVE FUNCTIONS AND AWARENESS (5) Dehydration Code(s): E86.0 - DEHYDRATION (6) Dementia Code(s): F03.90 - UNSPECIFIED DEMENTIA WITHOUT BEHAVIORAL DISTURBANCE (7) Diarrhea Code(s): R19.7 - DIARRHEA, UNSPECIFIED (8) Fall Code(s): W19.XXXA - UNSPECIFIED FALL, INITIAL ENCOUNTER Qualifiers: Encounter type: initial encounter Qualified Code(s): W19.XXXA - Unspecified fall, initial encounter (9) Fall from ground level Code(s): W18.30XA - FALL ON SAME LEVEL, UNSPECIFIED, INITIAL ENCOUNTER (10) Gastroenteritis Code(s): K52.9 - NONINFECTIVE GASTROENTERITIS AND COLITIS, UNSPECIFIED (11) Hemiparesis Code(s): G81.90 - HEMIPLEGIA, UNSPECIFIED AFFECTING UNSPECIFIED SIDE Qualifiers: Hemiparesis etiology: unspecified Hemiparesis laterality: right dominant side Qualified Code(s): G81.91 - Hemiplegia, unspecified affecting right dominant side (12) Hip pain, left Code(s): M25.552 - PAIN IN LEFT HIP (13) Hyperlipidemia Code(s): E78.5 - HYPERLIPIDEMIA, UNSPECIFIED Qualifiers: Hyperlipidemia type: Pure hypercholesterolemia (14) Hypertension Code(s): I10 - ESSENTIAL (PRIMARY) HYPERTENSION Qualifiers: Hypertension type: essential hypertension Qualified Code(s): I10 - Essential (primary) hypertension (15) Light headed Code(s): R42 - DIZZINESS AND GIDDINESS (16) Pleural effusion Code(s): J90 - PLEURAL EFFUSION, NOT ELSEWHERE CLASSIFIED (17) Pneumonia Code(s): J18.9 - PNEUMONIA, UNSPECIFIED ORGANISM (18) Pre-syncope Code(s): R55 - SYNCOPE AND COLLAPSE (19) Rib fracture Code(s): S22.39XA - FRACTURE OF ONE RIB, UNSP SIDE, INIT FOR CLOS FX Qualifiers: Encounter type: initial encounter Rib fracture type: single rib Fracture type: closed Laterality: left Qualified Code(s): S22.32XA - Fracture of one rib, left side, initial encounter for closed fracture (20) UTI (urinary tract infection) Code(s): N39.0 - URINARY TRACT INFECTION, SITE NOT SPECIFIED (21) Vertigo Code(s): R42 - DIZZINESS AND GIDDINESS Visit type - Emergency Visit Emergency Visit: Yes ED Registration Date: 09/02/18 Care time: The patient presented to the Emergency Department on the above date and was hospitalized for further evaluation of their emergent condition. - New Patient This patient is new to me today: Yes Date on this admission: 09/03/18 - Critical Care Critical Care patient: No - Discharge Referral Referred to [facility] Med [facility] No
--- NOTE | 2018-09-03 17:05 | PN ---
Progress Note (short form) - Note Progress Note: ORTHOPEDIC SURGERY PROGRESS NOTE Department of Orthopedic Surgery SUBJECTIVE No acute events overnight. No complaints currently. No nausea or vomiting. Tolerating oral intake. Pain control difficult overnight, but improving. PHYSICAL EXAMINATION General: Alert but confused. Lower Extremity: Dressing intact; Skin intact, no lesions, rashes or ulcers noted. Muscle mass equal and symmetric to contralateral side. No atrophy noted. No masses or effusions noted. No tenderness to palpation. Full passive ROM, free from pain. EHL/TA/GS motor intact; SILT distally; 2+ DP pulses; Cap refill brisk. DVT Exam: No evidence of DVT seen on physical exam; No cords or calf tenderness ; No significant calf/ankle edema. Intake & Output 09/01/18 09/02/18 09/03/18 23:59 23:59 23:59 Intake Total 250 120 Output Total 1340 400 Balance -1090 -280 Intake: IV 250 Oral 120 Output: Urine 1290 400 Oliva 90 400 Estimated Blood Loss 50 Other: Voiding Method Diaper Indwelling Catheter Bowel Movement No Weight 108 lb 3 oz Height 4 ft 11 in Body Mass Index (BMI) 21.8 Weight Measurement Method Built in [facility] Active Medications Generic Name Dose Route Start Last Admin Trade Name Freq PRN Reason Stop Dose Admin Acetaminophen 650 mg 09/03/18 11:03 Tylenol - PO Q4H PRN PAIN LEVEL 1-5 Cholecalciferol 2,000 unit 09/03/18 10:00 09/03/18 14:27 Vitamin D3 - PO 2,000 unit DAILY NATALIE Administration Diltiazem HCl 30 mg 09/03/18 06:00 09/03/18 14:27 Cardizem - PO 30 mg TID NATALIE Administration Docusate Sodium 300 mg 09/02/18 22:00 09/02/18 21:53 Colace - PO 300 mg HS NATALIE Administration Enoxaparin Sodium 30 mg 09/03/18 15:15 09/03/18 16:27 Lovenox - SQ 30 mg DAILY NATALIE Administration Hydromorphone HCl 0.5 mg 09/03/18 11:05 Dilaudid Vial - IVPB Q6H PRN PAIN LEVEL 6-10 Ketorolac Tromethamine 15 mg 09/03/18 16:21 09/03/18 16:27 Toradol Injection - IVPUSH 09/08/18 16:20 15 mg Q6H PRN Administration PAIN LEVEL 7 - 10 Melatonin 5 mg 09/02/18 22:00 09/02/18 21:54 Melatonin PO Not Given HS NATALIE Oxycodone HCl 5 mg 09/03/18 11:03 Roxicodone - PO Q4H PRN PAIN LEVEL 6-10 Polyethylene Glycol 17 gm 09/02/18 22:00 09/03/18 09:58 Miralax (For Daily Use) - PO Not Given BID NATALIE Potassium Phos/Sodium Phos 2 packet 09/03/18 11:00 09/03/18 14:26 Phos-Nak Packet - PO 09/03/18 22:01 2 packet BID NATALIE Administration Quetiapine Fumarate 25 mg 09/02/18 22:00 09/02/18 21:54 Seroquel - PO 25 mg HS NATALIE Administration Senna 2 tab 09/03/18 22:00 Senna - PO HS NATALIE Sertraline HCl 50 mg 09/03/18 10:00 09/03/18 14:27 Zoloft - PO 50 mg DAILY NATALIE Administration Vital Signs (last) Temp Pulse Resp BP Pulse Ox 97.9 F 82 18 132/60 97 09/03/18 14:21 09/03/18 15:00 09/03/18 15:00 09/03/18 15:00 09/03/18 07:50 Laboratory (coagulation) PT with INR 11.20 SEC (9.7-13.0) 09/02/18 10:40 Laboratory 09/03/18 07:00 09/03/18 07:00 ASSESSMENT AND PLAN Ms. Maldonado is an 88 year old female s/p Left Hip Intramedullary nailing - POD 1 - Pain control: Transition to oral pain medications, minimize narcotic use - DVT prophylaxis - Ice to left hip - Elevate HOB, encourage oral intake - Appreciate medical management (Nutrition optimization, decubitus precautions heel/sacrum) - PT Daily; WBAT LLE - Dispo planning - Dressing change POD 7 - DC Fabens POD 14 - Follow up in office in 2 weeks - please have an X-ray taken of the Left hip and Pelvis 1 day before coming to the office for the appointment.
[2018-09-03] MEDS: LACTATED RINGERS SOLUTION 1,000 ML/1,000 ML INFUS.BAG IV SCH (18:15)
[2018-09-03] MEDS ORDERED: ACETAMINOPHEN 1000 MG/100 ML VIAL (NON FORMULARY) IVPB ONE (18:15)
[2018-09-03] MEDS ORDERED: QUEtiapine FUMARATE 25 MG TABLET (FP) PO ONE (18:15)
[2018-09-03] MEDS ORDERED: HALOPERIDOL LACTATE 5 MG/ML IM ONE ×2 (18:15→18:34)
[2018-09-03] MEDS: DOCUSATE SODIUM 100 MG CAPSULE (FP) PO SCH (22:10)
[2018-09-03] MEDS: QUEtiapine FUMARATE 25 MG TABLET (FP) PO SCH ×2 (22:10→22:18)
[2018-09-03] MEDS: SENNOSIDES 8.6MG TABLET (FP) PO SCH ×2 (22:10→22:18)
[2018-09-03] MEDS: MELATONIN 5 MG TABLETS PO SCH ×2 (22:11→22:18)
[2018-09-04] MEDS: KETOROLAC TROMETHAMINE 15 MG/ML VIAL IVPUSH PRN (03:28)
[2018-09-04] MEDS: HYDROmorphone HCl 2 MG/ML VIAL IVPB PRN ×2 (05:04→12:32)
[2018-09-04] MEDS: dilTIAZem HCL 30 MG TABLET (FP) PO SCH ×3 (06:31→21:13)
[2018-09-04 07:20] LABS: ANION GAP 6 MMOL/L (8-16); BLOOD UREA NITROGEN 23 mg/dL (7-18); CALCIUM 8.7 mg/dL (8.5-10.1); CHLORIDE 108 mmol/L (98-107); CO2 27 mmol/L (21-32); CREATININE 0.6 mg/dL (0.55-1.3); GLUCOSE,RANDOM 96 mg/dL (74-106); POTASSIUM 3.5 mmol/L (3.5-5.1); SODIUM 142 mmol/L (136-145)
[2018-09-04] MEDS: CHOLECALCIFEROL (VITAMIN D3) 1,000 UNIT TABLET (FP) PO SCH (09:11)
[2018-09-04] MEDS: POLYETHYLENE GLYCOL 3350 119 GM BTL PO SCH ×2 (09:11→21:14)
[2018-09-04] MEDS: SERTRALINE HCL 50 MG TABLET (FP) PO SCH (09:11)
[2018-09-04] MEDS: ENOXAPARIN NA (PORCINE) 30 MG/0.3 ML DISP.SYRIN SQ SCH (09:12)
--- NOTE | 2018-09-04 09:30 | PN ---
Teaching Attending Note Name of Resident: Lidya Robert ATTENDING PHYSICIAN STATEMENT I saw and evaluated the patient. I reviewed the resident's note and discussed the case with the resident. I agree with the resident's findings and plan as documented with exceptions below. SUBJECTIVE: Patient seen and examined. Awake, pleasant, smiling and responding to questions appropriately, denies any pain or complaints. OBJECTIVE: Vital Signs Period Temp Pulse Resp BP Sys/Barber Pulse Ox Last 24 Hr 97.9 F-101 F 82-98 - 116-147/58-86 94-94 Intake & Output 09/01/18 09/02/18 09/03/18 09/04/18 23:59 23:59 23:59 23:59 Intake Total 250 120 900 Output Total 1340 400 800 Balance -1090 -280 100 Weight 108 lb 3 oz General: lying in bed, pleasant, calm, appropriately responds to questions Chest: poor effort, positive air entry, no rales or wheezing appreciated Abdomen;Sot, NT, no suprapubic or CVA tenderness Extremities: left thigh dressing clean, positive pulses, no edema Home Medications Medication Instructions Recorded Cholecalciferol (Vitamin D3) 2,000 unit PO DAILY #0 tab 06/22/14 [Vitamin D3 -] Aspirin 81 mg PO DAILY 06/07/18 Diltiazem Cd [Cardizem Cd -] 90 mg PO DAILY 06/07/18 Sertraline HCl [Zoloft] 50 mg PO DAILY 06/07/18 Docusate Sodium [Colace -] 300 mg PO HS capsule 06/12/18 Polyethylene Glycol 3350 [Miralax 17 gm PO DAILY bottle 06/12/18 119 gm Btl -] Melatonin 5 mg PO HS 08/08/18 Quetiapine Fumarate [Seroquel -] 25 mg PO HS 08/08/18 Active Medications Acetaminophen (Tylenol -) 650 mg PO Q4H PRN PRN Reason: PAIN LEVEL 1-5 Cholecalciferol (Vitamin D3 -) 2,000 unit PO DAILY [facility] Last Admin: 09/04/18 09:11 Dose: 2,000 unit Diltiazem HCl (Cardizem -) 30 mg PO TID [facility] Last Admin: 09/04/18 06:31 Dose: 30 mg Docusate Sodium (Colace -) 300 mg PO HS [facility] Last Admin: 09/03/18 22:10 Dose: 300 mg Enoxaparin Sodium (Lovenox -) 30 mg SQ DAILY [facility] Last Admin: 09/04/18 09:12 Dose: 30 mg Hydromorphone HCl (Dilaudid Vial -) 0.5 mg IVPB Q6H PRN PRN Reason: PAIN LEVEL 6-10 Last Admin: 09/04/18 05:04 Dose: 0.5 mg Lactated Ringer's (Lactated Ringers Solution) 1,000 ml in 1,000 mls @ 75 mls/ hr IV ASDIR [facility] Last Admin: 09/04/18 10:33 Dose: 75 mls/hr Ketorolac Tromethamine (Toradol Injection -) 15 mg IVPUSH Q6H PRN PRN Reason: PAIN LEVEL 7 - 10 Stop: 09/08/18 16:20 Last Admin: 09/04/18 03:28 Dose: 15 mg Melatonin (Melatonin) 5 mg PO [facility] Last Admin: 09/03/18 22:18 Dose: Not Given Oxycodone HCl (Roxicodone -) 5 mg PO Q4H PRN PRN Reason: PAIN LEVEL 6-10 Polyethylene Glycol (Miralax (For Daily Use) -) 17 gm PO BID [facility] Last Admin: 09/04/18 09:11 Dose: 17 gm Quetiapine Fumarate (Seroquel -) 25 mg PO [facility] Last Admin: 09/03/18 22:18 Dose: Not Given Senna (Senna -) 2 tab PO [facility] Last Admin: 09/03/18 22:18 Dose: Not Given Sertraline HCl (Zoloft -) 50 mg PO DAILY [facility] Last Admin: 09/04/18 09:11 Dose: 50 mg Laboratory Results - last 24 hr 09/04/18 09/04/18 09/04/18 06:00 06:00 09:50 WBC Cancelled 13.4 H Corrected WBC (auto) Cancelled RBC Cancelled 3.32 L Hgb Cancelled 9.8 L Hct Cancelled 29.7 L MCV Cancelled 89.2 MCH Cancelled 29.6 MCHC Cancelled 33.2 RDW Cancelled 15.6 Plt Count Cancelled 160 MPV Cancelled 10.0 Absolute Neuts (auto) Cancelled 10.7 H Neutrophils % Cancelled 79.6 Lymphocytes % Cancelled 9.6 D Monocytes % Cancelled 10.5 H Eosinophils % Cancelled 0.1 D Basophils % Cancelled 0.2 Nucleated RBC % Cancelled 0 Platelet Estimate Cancelled Platelet Comment Cancelled Sodium 142 Potassium 3.5 Chloride 108 H Carbon Dioxide 27 Anion Gap 6 L BUN 23 H Creatinine 0.6 Creat Clearance w eGFR 94.13 Random Glucose 96 Calcium 8.7 ASSESSMENT AND PLAN: 88 yof with PMHx of dementia, HTN, HLD, GERD, chronic low back pain, BPPV, meningioma, multiple falls, last admission in 05/2018 with rib fx, ?remote small [place]/CAD with no concerns in 'years', admitted with unwitnessed fall and acute left displaced intertrochanteric hip fracture -Acute left displaced intertrochanteric hip fracture s/p gamma nail fixation -Unwitnessed fall (h/o multiple prior falls) -Post op fever, ?aspiration -AMS suspect toxic metabolic encephalopathy from above over underlying dementia -Anemia, suspect from acute blood loss from surgery -HTN -HLD -GERD -Chronic low back pain -BPPV -Meningioma Plan: Isolated Fever x1 post op. CXR, ua non concerning. Follow up cx, Encourage OOB, incentive spirometry. PT eval. Trend h/h. taper diluadid, transition to PO oxycodone/tylenol over 24 hours. Frequent orientation to environment, OOB. Continue seroquel/zoloft. Aggressive bowel regimen. Voiding trial once ambulatory (H/o witholding urine when unable to get out of bed) DVTPPX lovenox 30 mg daily x 30 days as discussed with Dr. Lee. Code status: DNR/DNI Dispo d/c back to [facility] in 1-2 days if afebrile, continues to improve and no new concerns. Plan discussed with nursing, all questions answered. .
[2018-09-04 10:32] LABS: BASO % 0.2 % (0-2.0); EOS % 0.1 % (0-4.5); HEMATOCRIT 29.7 % (32.4-45.2); HEMOGLOBIN 9.8 GM/dL (10.7-15.3); LYMPH % 9.6 % (8-40); MCH 29.6 pg (25.7-33.7); MCHC 33.2 g/dl (32.0-36.0); MEAN CELL VOLUME 89.2 fl (80-96); MONO % 10.5 % (3.8-10.2); NEUT % 79.6 % (42.8-82.8); PLATELET COUNT 160 K/MM3 (134-434); RBC 3.32 M/mm3 (3.60-5.2); RDW 15.6 % (11.6-15.6); WHITE BLOOD COUNT 13.4 K/mm3 (4.0-10.0)
[2018-09-04] MEDS: LACTATED RINGERS SOLUTION 1,000 ML/1,000 ML INFUS.BAG IV SCH (10:33)
--- NOTE | 2018-09-04 12:12 | PN ---
Progress Note (short form) - Note Progress Note: ORTHOPEDIC SURGERY PROGRESS NOTE Department of Orthopedic Surgery SUBJECTIVE No acute events overnight. No complaints currently. No nausea or vomiting. SCD' s are on in bed. Slightly confused. Patient had one bout of fever yesterday and has been normal since. Tolerating oral intake. Pain control difficult overnight , but improving. PHYSICAL EXAMINATION General: Alert but confused. Lower Extremity: Dressing was removed by patient yesterday and reinforced by nursing - currently intact; Skin intact, no lesions, rashes or ulcers noted. Muscle mass equal and symmetric to contralateral side. No atrophy noted. No masses or effusions noted. No tenderness to palpation. Full passive ROM, free from pain. EHL/TA/GS motor intact; SILT distally; 2+ DP pulses; Cap refill brisk. DVT Exam: No evidence of DVT seen on physical exam; No cords or calf tenderness ; No significant calf/ankle edema. Intake & Output 09/02/18 09/03/18 09/04/18 23:59 23:59 23:59 Intake Total 250 120 900 Output Total 1340 400 800 Balance -1090 -280 100 Intake: IV 250 900 Lactated Ringers Solution 900 1,000 ml @ 75 mls/hr IV ASDIR NATALIE Rx#:[id number] Oral 120 Output: Urine 1290 400 800 Oliva 90 400 800 Estimated Blood Loss 50 Other: Voiding Method Diaper Indwelling Catheter Bowel Movement No Weight 108 lb 3 oz Height 4 ft 11 in Body Mass Index (BMI) 21.8 Weight Measurement Method Built in [facility] Active Medications Generic Name Dose Route Start Last Admin Trade Name Freq PRN Reason Stop Dose Admin Acetaminophen 650 mg 09/03/18 11:03 Tylenol - PO Q4H PRN PAIN LEVEL 1-5 Cholecalciferol 2,000 unit 09/03/18 10:00 09/04/18 09:11 Vitamin D3 - PO 2,000 unit DAILY NATALIE Administration Diltiazem HCl 30 mg 09/03/18 06:00 09/04/18 06:31 Cardizem - PO 30 mg TID NATALIE Administration Docusate Sodium 300 mg 09/02/18 22:00 09/03/18 22:10 Colace - PO 300 mg HS NATALIE Administration Enoxaparin Sodium 30 mg 09/03/18 15:15 09/04/18 09:12 Lovenox - SQ 30 mg DAILY NATALIE Administration Hydromorphone HCl 0.5 mg 09/03/18 11:05 09/04/18 05:04 Dilaudid Vial - IVPB 0.5 mg Q6H PRN Administration PAIN LEVEL 6-10 Lactated Ringer's 1,000 ml in 1,000 mls @ 75 mls/hr 09/03/18 17:45 09/04/18 10:33 Lactated Ringers Solution IV 75 mls/hr ASDIR NATALIE Administration Ketorolac Tromethamine 15 mg 09/03/18 16:21 09/04/18 03:28 Toradol Injection - IVPUSH 09/08/18 16:20 15 mg Q6H PRN Administration PAIN LEVEL 7 - 10 Melatonin 5 mg 09/02/18 22:00 09/03/18 22:18 Melatonin PO Not Given HS NATALIE Oxycodone HCl 5 mg 09/03/18 11:03 Roxicodone - PO Q4H PRN PAIN LEVEL 6-10 Polyethylene Glycol 17 gm 09/02/18 22:00 09/04/18 09:11 Miralax (For Daily Use) - PO 17 gm BID NATALIE Administration Quetiapine Fumarate 25 mg 09/02/18 22:00 09/03/18 22:18 Seroquel - PO Not Given HS NATALIE Senna 2 tab 09/03/18 22:00 09/03/18 22:18 Senna - PO Not Given HS NATALIE Sertraline HCl 50 mg 09/03/18 10:00 09/04/18 09:11 Zoloft - PO 50 mg DAILY NATALIE Administration Vital Signs (last) Temp Pulse Resp BP Pulse Ox 99 F 92 H 16 135/60 94 L 09/04/18 09:10 09/04/18 09:10 09/04/18 09:10 09/04/18 09:10 09/04/18 03:00 Laboratory (coagulation) PT with INR 11.20 SEC (9.7-13.0) 09/02/18 10:40 Laboratory 09/04/18 09:50 09/04/18 06:00 ASSESSMENT AND PLAN Ms. Maldonado is an 88 year old female s/p Left Hip Intramedullary nailing - POD 2 - Pain control: Transition to oral pain medications, minimize narcotic use - DVT prophylaxis - Ice to left hip - Elevate HOB, encourage oral intake - Appreciate medical management (Nutrition optimization, decubitus precautions heel/sacrum) - PT Daily; WBAT LLE - Dispo planning - Dressing change POD 7 - DC Kayli POD 14 - Follow up in office in 2 weeks - please have an X-ray taken of the Left hip and Pelvis 1 day before coming to the office for the appointment.
--- NOTE | 2018-09-04 14:06 | PN ---
Physical Exam: SUBJECTIVE: Patient seen and examined, complaining of pain and expressed that doesn't like her sitter. OBJECTIVE: Vital Signs Period Temp Pulse Resp BP Sys/Barber Pulse Ox Last 24 Hr 97.9 F-101 F 82-98 - 116-147/58-86 94-94 GENERAL: The patient is sitting on a wheelchair in hallway with assistance of sitter, no acute distress. HEAD: Normal with no signs of trauma. EYES: PERRL, conjunctiva clear. ENT: Oropharynx clear without exudates, moist mucous membranes. NECK: Trachea midline, full range of motion, supple. LUNGS: Breath sounds equal, clear to auscultation bilaterally, no wheezes, no crackles, no accessory muscle use. HEART: Regular rate and rhythm, S1, S2 without murmur, rub or gallop. ABDOMEN: Soft, nontender, nondistended, no masses. EXTREMITIES: 2+ pulses, warm, no edema. NEUROLOGICAL: no facial asymmetry, repetitive, no gait observed PSYCH: oriented to person, place, confused, agitated at times SKIN: Warm, dry, normal turgor, no rashes, dressing applied to left hip. Laboratory Results - last 24 hr 09/04/18 09/04/18 09/04/18 06:00 06:00 09:50 WBC Cancelled 13.4 H Corrected WBC (auto) Cancelled RBC Cancelled 3.32 L Hgb Cancelled 9.8 L Hct Cancelled 29.7 L MCV Cancelled 89.2 MCH Cancelled 29.6 MCHC Cancelled 33.2 RDW Cancelled 15.6 Plt Count Cancelled 160 MPV Cancelled 10.0 Absolute Neuts (auto) Cancelled 10.7 H Neutrophils % Cancelled 79.6 Lymphocytes % Cancelled 9.6 D Monocytes % Cancelled 10.5 H Eosinophils % Cancelled 0.1 D Basophils % Cancelled 0.2 Nucleated RBC % Cancelled 0 Platelet Estimate Cancelled Platelet Comment Cancelled Sodium 142 Potassium 3.5 Chloride 108 H Carbon Dioxide 27 Anion Gap 6 L BUN 23 H Creatinine 0.6 Creat Clearance w eGFR 94.13 Random Glucose 96 Calcium 8.7 Active Medications Generic Name Dose Route Start Last Admin Trade Name Freq PRN Reason Stop Dose Admin Acetaminophen 650 mg 09/03/18 11:03 Tylenol - PO Q4H PRN PAIN LEVEL 1-5 Cholecalciferol 2,000 unit 09/03/18 10:00 09/04/18 09:11 Vitamin D3 - PO 2,000 unit DAILY NATALIE Administration Diltiazem HCl 30 mg 09/03/18 06:00 09/04/18 06:31 Cardizem - PO 30 mg TID NATALIE Administration Docusate Sodium 300 mg 09/02/18 22:00 09/03/18 22:10 Colace - PO 300 mg HS NATALIE Administration Enoxaparin Sodium 30 mg 09/03/18 15:15 09/04/18 09:12 Lovenox - SQ 30 mg DAILY NATALIE Administration Lactated Ringer's 1,000 ml in 1,000 mls @ 75 mls/hr 09/03/18 17:45 09/04/18 10:33 Lactated Ringers Solution IV 75 mls/hr ASDIR NATALIE Administration Ketorolac Tromethamine 15 mg 09/03/18 16:21 09/04/18 03:28 Toradol Injection - IVPUSH 09/08/18 16:20 15 mg Q6H PRN Administration PAIN LEVEL 7 - 10 Melatonin 5 mg 09/02/18 22:00 09/03/18 22:18 Melatonin PO Not Given HS NATALIE Oxycodone HCl 5 mg 09/03/18 11:03 Roxicodone - PO Q4H PRN PAIN LEVEL 6-10 Polyethylene Glycol 17 gm 09/02/18 22:00 09/04/18 09:11 Miralax (For Daily Use) - PO 17 gm BID NATALIE Administration Quetiapine Fumarate 25 mg 09/02/18 22:00 09/03/18 22:18 Seroquel - PO Not Given HS NATALIE Senna 2 tab 09/03/18 22:00 09/03/18 22:18 Senna - PO Not Given HS NATALIE Sertraline HCl 50 mg 09/03/18 10:00 09/04/18 09:11 Zoloft - PO 50 mg DAILY NATALIE Administration ASSESSMENT/PLAN: 88 yof with PMHx of dementia, HTN, HLD, GERD, chronic low back pain, BPPV, meningioma, multiple falls, last admission in 05/2018 with rib fx, ?remote small [place]/CAD admitted with unwitnessed fall and acute left displaced intertrochanteric hip fracture. Acute left displaced intertrochanteric hip fracture -POD#2, agitated yesterday, today is feeling better but still confused -continue Seroquel HS, no need for more sedatives -spiked fever 101F once yesterday, no more fever, blood cultures, urine cultures pending, IV Tylenol given, -CXR stat no acute pathology -continue Dilaulid and Toradol, allergy to Morphine, will transition to PO -OOB, incentive spirometry -cont LR at 75 cc/hr -f/u Orthopedic Surgery -Oxygenating well on RA -dressing changes -cont Oliva h/o multiple prior falls -fall risk precautions -bed alarm -vest and medicated for agitation HTN -monitor, cont Cardizem HLD -no meds GERD -no meds BPPV -stable Meningioma -stable Depression: -cont Zoloft F/E/N: no.no changes/low Na DVT PPX: Lovenox Dispo: med surg, DNR/DNI Problem List - Problems (1) Hip fracture Code(s): S72.009A - FRACTURE OF UNSP PART OF NECK OF UNSP FEMUR, INIT (2) Abnormal chest xray Code(s): R93.8 - ABNORMAL FINDINGS ON DIAGNOSTIC IMAGING OF RISHABH * DO NOT USE * (3) Aortic regurgitation Code(s): I35.1 - NONRHEUMATIC AORTIC (VALVE) INSUFFICIENCY (4) Cognitive impairment Code(s): R41.89 - OTH SYMPTOMS AND SIGNS W COGNITIVE FUNCTIONS AND AWARENESS (5) Dehydration Code(s): E86.0 - DEHYDRATION (6) Dementia Code(s): F03.90 - UNSPECIFIED DEMENTIA WITHOUT BEHAVIORAL DISTURBANCE (7) Diarrhea Code(s): R19.7 - DIARRHEA, UNSPECIFIED (8) Fall Code(s): W19.XXXA - UNSPECIFIED FALL, INITIAL ENCOUNTER Qualifiers: Encounter type: initial encounter Qualified Code(s): W19.XXXA - Unspecified fall, initial encounter (9) Fall from ground level Code(s): W18.30XA - FALL ON SAME LEVEL, UNSPECIFIED, INITIAL ENCOUNTER (10) Gastroenteritis Code(s): K52.9 - NONINFECTIVE GASTROENTERITIS AND COLITIS, UNSPECIFIED (11) Hemiparesis Code(s): G81.90 - HEMIPLEGIA, UNSPECIFIED AFFECTING UNSPECIFIED SIDE Qualifiers: Hemiparesis etiology: unspecified Hemiparesis laterality: right dominant side Qualified Code(s): G81.91 - Hemiplegia, unspecified affecting right dominant side (12) Hip pain, left Code(s): M25.552 - PAIN IN LEFT HIP (13) Hyperlipidemia Code(s): E78.5 - HYPERLIPIDEMIA, UNSPECIFIED Qualifiers: Hyperlipidemia type: Pure hypercholesterolemia (14) Hypertension Code(s): I10 - ESSENTIAL (PRIMARY) HYPERTENSION Qualifiers: Hypertension type: essential hypertension Qualified Code(s): I10 - Essential (primary) hypertension (15) Light headed Code(s): R42 - DIZZINESS AND GIDDINESS (16) Pleural effusion Code(s): J90 - PLEURAL EFFUSION, NOT ELSEWHERE CLASSIFIED (17) Pneumonia Code(s): J18.9 - PNEUMONIA, UNSPECIFIED ORGANISM (18) Pre-syncope Code(s): R55 - SYNCOPE AND COLLAPSE (19) Rib fracture Code(s): S22.39XA - FRACTURE OF ONE RIB, UNSP SIDE, INIT FOR CLOS FX Qualifiers: Encounter type: initial encounter Rib fracture type: single rib Fracture type: closed Laterality: left Qualified Code(s): S22.32XA - Fracture of one rib, left side, initial encounter for closed fracture (20) UTI (urinary tract infection) Code(s): N39.0 - URINARY TRACT INFECTION, SITE NOT SPECIFIED (21) Vertigo Code(s): R42 - DIZZINESS AND GIDDINESS Visit type - Emergency Visit Emergency Visit: Yes ED Registration Date: 09/02/18 Care time: The patient presented to the Emergency Department on the above date and was hospitalized for further evaluation of their emergent condition. - New Patient This patient is new to me today: No - Critical Care Critical Care patient: No - Discharge Referral Referred to [facility] Med P.C.: No
[2018-09-04] MEDS: DOCUSATE SODIUM 100 MG CAPSULE (FP) PO SCH (21:13)
[2018-09-04] MEDS: MELATONIN 5 MG TABLETS PO SCH (21:14)
[2018-09-04] MEDS: QUEtiapine FUMARATE 25 MG TABLET (FP) PO SCH (21:14)
[2018-09-04] MEDS: SENNOSIDES 8.6MG TABLET (FP) PO SCH (21:14)
[2018-09-05] MEDS: dilTIAZem HCL 30 MG TABLET (FP) PO SCH ×2 (05:51→14:34)
[2018-09-05 07:50] LABS: ALBUMIN 2.8 g/dl (3.4-5.0); ALK PHOS 55 U/L (45-117); ANION GAP 2 MMOL/L (8-16); BILIRUBIN,TOTAL 0.9 mg/dL (0.2-1); BLOOD UREA NITROGEN 16 mg/dL (7-18); CALCIUM 8.7 mg/dL (8.5-10.1); CHLORIDE 108 mmol/L (98-107); CO2 30 mmol/L (21-32); CREATININE 0.5 mg/dL (0.55-1.3); GLUCOSE,RANDOM 91 mg/dL (74-106); POTASSIUM 4.2 mmol/L (3.5-5.1); SGOT/AST 27 U/L (15-37); SGPT/ALT 22 U/L (13-61); SODIUM 140 mmol/L (136-145); TOT PROT 5.2 g/dl (6.4-8.2)
--- NOTE | 2018-09-05 09:02 | PN ---
Teaching Attending Note Name of Resident: Lidya Robert ATTENDING PHYSICIAN STATEMENT I saw and evaluated the patient. I reviewed the resident's note and discussed the case with the resident. I agree with the resident's findings and plan as documented. SUBJECTIVE: OBJECTIVE: Vital Signs Temperature 98.7 F 09/05/18 08:49 Pulse Rate 98 H 09/05/18 08:49 Respiratory Rate 18 09/05/18 08:49 Blood Pressure 140/66 09/05/18 08:49 O2 Sat by Pulse Oximetry (%) 95 09/04/18 22:00 LABS: CBC, BMP 09/05/18 07:00 MEDS: Active Medications Acetaminophen (Tylenol -) 650 mg PO Q4H PRN PRN Reason: PAIN LEVEL 1-5 Cholecalciferol (Vitamin D3 -) 2,000 unit PO DAILY [facility] Last Admin: 09/04/18 09:11 Dose: 2,000 unit Diltiazem HCl (Cardizem -) 30 mg PO TID [facility] Last Admin: 09/05/18 05:51 Dose: 30 mg Docusate Sodium (Colace -) 300 mg PO HS [facility] Last Admin: 09/04/18 21:13 Dose: 300 mg Enoxaparin Sodium (Lovenox -) 30 mg SQ DAILY [facility] Last Admin: 09/04/18 09:12 Dose: 30 mg Lactated Ringer's (Lactated Ringers Solution) 1,000 ml in 1,000 mls @ 75 mls/ hr IV ASDIR [facility] Last Admin: 09/04/18 10:33 Dose: 75 mls/hr Ketorolac Tromethamine (Toradol Injection -) 15 mg IVPUSH Q6H PRN PRN Reason: PAIN LEVEL 7 - 10 Stop: 09/08/18 16:20 Last Admin: 09/04/18 03:28 Dose: 15 mg Melatonin (Melatonin) 5 mg PO HS [facility] Last Admin: 09/04/18 21:14 Dose: 5 mg Oxycodone HCl (Roxicodone -) 5 mg PO Q4H PRN PRN Reason: PAIN LEVEL 6-10 Last Admin: 09/05/18 01:52 Dose: 5 mg Polyethylene Glycol (Miralax (For Daily Use) -) 17 gm PO BID [facility] Last Admin: 09/04/18 21:14 Dose: 17 gm Quetiapine Fumarate (Seroquel -) 25 mg PO HS [facility] Last Admin: 09/04/18 21:14 Dose: 25 mg Senna (Senna -) 2 tab PO HS [facility] Last Admin: 09/04/18 21:14 Dose: 2 tab Sertraline HCl (Zoloft -) 50 mg PO DAILY [facility] Last Admin: 09/04/18 09:11 Dose: 50 mg ASSESSMENT AND PLAN:88 yof with PMHx of dementia, HTN, HLD, GERD, chronic low back pain, BPPV, meningioma, multiple falls, last admission in 05/2018 with rib fx, ?remote small [place]/CAD with no concerns in 'years', admitted with unwitnessed fall and acute left displaced intertrochanteric hip fracture
--- NOTE | 2018-09-05 09:34 | PN ---
Progress Note (short form) - Note Progress Note: ORTHOPEDIC SURGERY PROGRESS NOTE Department of Orthopedic Surgery SUBJECTIVE No acute events overnight. No complaints currently. No nausea or vomiting. SCD' s are on in bed. Slightly confused. Tolerating oral intake. Pain controlled currently. PHYSICAL EXAMINATION General: Alert but confused. Lower Extremity: Dressing intact; Skin intact, no lesions, rashes or ulcers noted. Muscle mass equal and symmetric to contralateral side. No atrophy noted. No masses or effusions noted. No tenderness to palpation. Full passive ROM, free from pain. EHL/TA/GS motor intact; SILT distally; 2+ DP pulses; Cap refill brisk. DVT Exam: No evidence of DVT seen on physical exam; No cords or calf tenderness ; No significant calf/ankle edema. Intake & Output 09/03/18 09/04/18 09/05/18 23:59 23:59 23:59 Intake Total 120 1350 240 Output Total 400 800 Balance -280 550 240 Intake: IV 900 Lactated Ringers Solution 900 1,000 ml @ 75 mls/hr IV ASDIR NATALIE Rx#:[id number] Oral 120 450 240 Output: Urine 400 800 Oliva 400 800 Other: Voiding Method Indwelling Catheter Diaper # Unmeasured Voids Oliva 1 Void 0 Bowel Movement No No Active Medications Generic Name Dose Route Start Last Admin Trade Name Freq PRN Reason Stop Dose Admin Acetaminophen 650 mg 09/03/18 11:03 Tylenol - PO Q4H PRN PAIN LEVEL 1-5 Cholecalciferol 2,000 unit 09/03/18 10:00 09/04/18 09:11 Vitamin D3 - PO 2,000 unit DAILY NATALIE Administration Diltiazem HCl 30 mg 09/03/18 06:00 09/05/18 05:51 Cardizem - PO 30 mg TID NATALIE Administration Docusate Sodium 300 mg 09/02/18 22:00 09/04/18 21:13 Colace - PO 300 mg HS NATALIE Administration Enoxaparin Sodium 30 mg 09/03/18 15:15 09/04/18 09:12 Lovenox - SQ 30 mg DAILY NATALIE Administration Lactated Ringer's 1,000 ml in 1,000 mls @ 75 mls/hr 09/03/18 17:45 09/04/18 10:33 Lactated Ringers Solution IV 75 mls/hr ASDIR NATALIE Administration Ketorolac Tromethamine 15 mg 09/03/18 16:21 09/04/18 03:28 Toradol Injection - IVPUSH 09/08/18 16:20 15 mg Q6H PRN Administration PAIN LEVEL 7 - 10 Melatonin 5 mg 09/02/18 22:00 09/04/18 21:14 Melatonin PO 5 mg HS NATALIE Administration Oxycodone HCl 5 mg 09/03/18 11:03 09/05/18 01:52 Roxicodone - PO 5 mg Q4H PRN Administration PAIN LEVEL 6-10 Polyethylene Glycol 17 gm 09/02/18 22:00 09/04/18 21:14 Miralax (For Daily Use) - PO 17 gm BID NATALIE Administration Quetiapine Fumarate 25 mg 09/02/18 22:00 09/04/18 21:14 Seroquel - PO 25 mg HS NATALIE Administration Senna 2 tab 09/03/18 22:00 09/04/18 21:14 Senna - PO 2 tab HS NATALIE Administration Sertraline HCl 50 mg 09/03/18 10:00 09/04/18 09:11 Zoloft - PO 50 mg DAILY NATALIE Administration Vital Signs (last) Temp Pulse Resp BP Pulse Ox 98.7 F 98 H 18 140/66 95 09/05/18 08:49 09/05/18 08:49 09/05/18 08:49 09/05/18 08:49 09/04/18 22:00 Laboratory (coagulation) PT with INR 11.20 SEC (9.7-13.0) 09/02/18 10:40 Laboratory 09/05/18 07:00 ASSESSMENT AND PLAN Ms. Maldonado is an 88 year old female s/p Left Hip Intramedullary nailing - POD 3 - Pain control: Transition to oral pain medications, minimize narcotic use - DVT prophylaxis - Ice to left hip - Elevate HOB, encourage oral intake - Appreciate medical management (Nutrition optimization, decubitus precautions heel/sacrum) - PT Daily; WBAT LLE - Dispo planning - Dressing change POD 7 - DC Kayli POD 14 - Follow up in office in 2 weeks - please have an X-ray taken of the Left hip and Pelvis 1 day before coming to the office for the appointment.
[2018-09-05 10:11] LABS: BASO % 0.3 % (0-2.0); EOS % 0.1 % (0-4.5); HEMATOCRIT 26.7 % (32.4-45.2); LYMPH % 9.8 % (8-40); MCH 29.5 pg (25.7-33.7); MCHC 33.6 g/dl (32.0-36.0); MEAN CELL VOLUME 87.8 fl (80-96); MEAN PLT VOLUME 9.6 fl (7.5-11.1); MONO % 9.7 % (3.8-10.2); NEUT % 80.1 % (42.8-82.8); PLATELET COUNT 161 K/MM3 (134-434); RBC 3.05 M/mm3 (3.60-5.2); RDW 15.4 % (11.6-15.6); WHITE BLOOD COUNT 10.9 K/mm3 (4.0-10.0)
[2018-09-05] MEDS: POLYETHYLENE GLYCOL 3350 119 GM BTL PO SCH (11:07)
[2018-09-05] MEDS: SERTRALINE HCL 50 MG TABLET (FP) PO SCH (11:08)
[2018-09-05] MEDS: CHOLECALCIFEROL (VITAMIN D3) 1,000 UNIT TABLET (FP) PO SCH (11:08)
[2018-09-05] MEDS: ENOXAPARIN NA (PORCINE) 30 MG/0.3 ML DISP.SYRIN SQ SCH (11:32)
--- NOTE | 2018-09-05 12:12 | DS ---
Physical Examination Vital Signs: Vital Signs Temperature 98.7 F 09/05/18 08:49 Pulse Rate 98 H 09/05/18 08:49 Respiratory Rate 18 09/05/18 08:49 Blood Pressure 140/66 09/05/18 08:49 O2 Sat by Pulse Oximetry (%) 95 09/04/18 22:00 Constitutional: Yes: Well Nourished, No Distress, Anxious Eyes: Yes: Conjunctiva Clear, EOM Intact HENT: Yes: Atraumatic, Normocephalic Neck: Yes: Supple, Trachea Midline Cardiovascular: Yes: Regular Rate and Rhythm, Murmur, S1, S2. No: JVD Respiratory: Yes: CTA Bilaterally Gastrointestinal: Yes: Normal Bowel Sounds, Soft Musculoskeletal: Yes: Back Pain, Other (S/P Left HIP IM Nailing) Edema: No Peripheral Pulses: Left Doralis Pedis: 1+, Right Dorsalis Pedis: 1+ Wound/Incision: Yes: Well Approximated, Sutures Intact, Dressing Dry and Intact Neurological: Yes: Alert ...Motor Strength: WNL, LUE, LLE, RUE, RLE Labs: CBC, BMP 09/05/18 07:00 09/05/18 07:00 Discharge Summary Reason For Visit: FRACTURE OF HIP Current Active Problems Hip fracture (Acute) Hospital Course: 88 yof with PMHx of dementia, HTN, HLD, GERD, chronic low back pain, BPPV, meningioma, multiple falls, last admission in 05/2018 with rib fx, ?remote small [place]/CAD with no concerns in 'years', admitted with unwitnessed fall and acute left displaced intertrochanteric hip fracture underwent Left IM nailing by ortho developed worsening mental status due to acute stress of trauma, today, sitting on chair hemodynamically stable back to base line as per Harish who is present bed side, CBC BMP at base line, remained afebrile, cleared by orthopaedics to DC home Condition: Stable - Instructions Diet, Activity, Other Instructions: Ortho Instructions; PT Daily; WBAT LLE - Dispo planning - Dressing change POD 7 - DC Kayli POD 14 - Follow up in office in 2 weeks - please have an X-ray taken of the Left hip and Pelvis 1 day before coming to the office for the appointment. Referrals: Lamont Lee DO [Staff Physician] - 2 Weeks Disposition: [facility] - Home Medications Comprehensive Discharge Medication List: Ambulatory Orders Cholecalciferol (Vitamin D3) [Vitamin D3 -] 2,000 unit PO DAILY #0 tab 06/22/14 Aspirin 81 mg PO DAILY 06/07/18 Diltiazem Cd [Cardizem Cd -] 90 mg PO DAILY 06/07/18 Sertraline HCl [Zoloft] 50 mg PO DAILY 06/07/18 Docusate Sodium [Colace -] 300 mg PO HS capsule 06/12/18 Polyethylene Glycol 3350 [Miralax 119 gm Btl -] 17 gm PO DAILY bottle 06/12/18 Melatonin 5 mg PO HS 08/08/18 Quetiapine Fumarate [Seroquel -] 25 mg PO HS 08/08/18 Acetaminophen [Tylenol .Regular Strength -] 650 mg PO Q4H PRN tablet 09/05/18 Enoxaparin [Lovenox -] 30 mg SQ DAILY disp.syrin 09/05/18 oxyCODONE HCL [Roxicodone -] 5 mg PO Q4H PRN 4 Days #30 tablet MDD 4 09/05/18
[2018-09-05 14:31] VITALS: BP 132/69; PULSE 103; TEMP 99.4
--- NOTE | 2018-09-05 18:35 | PN ---
Physical Exam: SUBJECTIVE: Patient seen and examined, feeling great. OBJECTIVE: Vital Signs Period Temp Pulse Resp BP Sys/Barber Pulse Ox Last 24 Hr 98.7 F-99.4 F 88-103 18-20 132-149/66-72 95-95 GENERAL: The patient is sitting, no acute distress. HEAD: Normal with no signs of trauma. EYES: PERRL, conjunctiva clear. ENT: Oropharynx clear without exudates, moist mucous membranes. NECK: Trachea midline, full range of motion, supple. LUNGS: Breath sounds equal, clear to auscultation bilaterally, no wheezes, no crackles, no accessory muscle use. HEART: Regular rate and rhythm, S1, S2 without murmur, rub or gallop. ABDOMEN: Soft, nontender, nondistended, no masses. EXTREMITIES: 2+ pulses, warm, no edema. NEUROLOGICAL: no facial asymmetry, repetitive, no gait observed PSYCH: oriented to person, place, confused. SKIN: Warm, dry, normal turgor, no rashes, dressing applied to left hip. Laboratory Results - last 24 hr 09/05/18 09/05/18 07:00 07:00 WBC 10.9 H RBC 3.05 L Hgb 9.0 L Hct 26.7 L MCV 87.8 MCH 29.5 MCHC 33.6 RDW 15.4 Plt Count 161 MPV 9.6 Absolute Neuts (auto) 8.7 H Neutrophils % 80.1 Lymphocytes % 9.8 Monocytes % 9.7 Eosinophils % 0.1 Basophils % 0.3 Nucleated RBC % 0 Sodium 140 Potassium 4.2 Chloride 108 H Carbon Dioxide 30 Anion Gap 2 L BUN 16 Creatinine 0.5 L Creat Clearance w eGFR 116.17 Random Glucose 91 Calcium 8.7 Total Bilirubin 0.9 AST 27 ALT 22 Alkaline Phosphatase 55 Total Protein 5.2 L Albumin 2.8 L Active Medications Generic Name Dose Route Start Last Admin Trade Name Freq PRN Reason Stop Dose Admin Acetaminophen 650 mg 09/03/18 11:03 Tylenol - PO Q4H PRN PAIN LEVEL 1-5 Cholecalciferol 2,000 unit 09/03/18 10:00 09/05/18 11:08 Vitamin D3 - PO 2,000 unit DAILY NATALIE Administration Diltiazem HCl 30 mg 09/03/18 06:00 09/05/18 14:34 Cardizem - PO 30 mg TID NATALIE Administration Docusate Sodium 300 mg 09/02/18 22:00 09/04/18 21:13 Colace - PO 300 mg HS NATALIE Administration Enoxaparin Sodium 30 mg 09/03/18 15:15 09/05/18 11:32 Lovenox - SQ 30 mg DAILY NATALIE Administration Ketorolac Tromethamine 15 mg 09/03/18 16:21 09/04/18 03:28 Toradol Injection - IVPUSH 09/08/18 16:20 15 mg Q6H PRN Administration PAIN LEVEL 7 - 10 Melatonin 5 mg 09/02/18 22:00 09/04/18 21:14 Melatonin PO 5 mg HS NATALIE Administration Oxycodone HCl 5 mg 09/03/18 11:03 09/05/18 01:52 Roxicodone - PO 5 mg Q4H PRN Administration PAIN LEVEL 6-10 Polyethylene Glycol 17 gm 09/02/18 22:00 09/05/18 11:07 Miralax (For Daily Use) - PO 17 gm BID NATALIE Administration Quetiapine Fumarate 25 mg 09/02/18 22:00 09/04/18 21:14 Seroquel - PO 25 mg HS NATALIE Administration Senna 2 tab 09/03/18 22:00 09/04/18 21:14 Senna - PO 2 tab HS NATALIE Administration Sertraline HCl 50 mg 09/03/18 10:00 09/05/18 11:08 Zoloft - PO 50 mg DAILY NATALIE Administration ASSESSMENT/PLAN: 88 yof with PMHx of dementia, HTN, HLD, GERD, chronic low back pain, BPPV, meningioma, multiple falls, last admission in 05/2018 with rib fx, ?remote small [place]/CAD admitted with unwitnessed fall and acute left displaced intertrochanteric hip fracture. Acute left displaced intertrochanteric hip fracture -POD#3, agitated yesterday, today is feeling better but still confused -continue Seroquel HS, no need for more sedatives -spiked fever 101F once, no more fever, cultures negative, IV Tylenol given, -CXR no acute pathology -continue Dilaulid and Toradol, allergy to Morphine, will transition to PO -OOB, incentive spirometry -stopped LR at 75 cc/hr -f/u Orthopedic Surgery -Oxygenating well on RA -dressing changes -cont Oliva h/o multiple prior falls -fall risk precautions -bed alarm -vest and medicated for agitation HTN -monitor, cont Cardizem HLD -no meds GERD -no meds BPPV -stable Meningioma -stable Depression: -cont Zoloft F/E/N: no.no changes/low Na DVT PPX: Lovenox Dispo: med surg, DISCHARGE TODAY to [facility] DNR/DNI Problem List - Problems (1) Hip fracture Code(s): S72.009A - FRACTURE OF UNSP PART OF NECK OF UNSP FEMUR, INIT (2) Abnormal chest xray Code(s): R93.8 - ABNORMAL FINDINGS ON DIAGNOSTIC IMAGING OF RISHABH * DO NOT USE * (3) Aortic regurgitation Code(s): I35.1 - NONRHEUMATIC AORTIC (VALVE) INSUFFICIENCY (4) Cognitive impairment Code(s): R41.89 - OTH SYMPTOMS AND SIGNS W COGNITIVE FUNCTIONS AND AWARENESS (5) Dehydration Code(s): E86.0 - DEHYDRATION (6) Dementia Code(s): F03.90 - UNSPECIFIED DEMENTIA WITHOUT BEHAVIORAL DISTURBANCE (7) Diarrhea Code(s): R19.7 - DIARRHEA, UNSPECIFIED (8) Fall Code(s): W19.XXXA - UNSPECIFIED FALL, INITIAL ENCOUNTER Qualifiers: Encounter type: initial encounter Qualified Code(s): W19.XXXA - Unspecified fall, initial encounter (9) Fall from ground level Code(s): W18.30XA - FALL ON SAME LEVEL, UNSPECIFIED, INITIAL ENCOUNTER (10) Gastroenteritis Code(s): K52.9 - NONINFECTIVE GASTROENTERITIS AND COLITIS, UNSPECIFIED (11) Hemiparesis Code(s): G81.90 - HEMIPLEGIA, UNSPECIFIED AFFECTING UNSPECIFIED SIDE Qualifiers: Hemiparesis etiology: unspecified Hemiparesis laterality: right dominant side Qualified Code(s): G81.91 - Hemiplegia, unspecified affecting right dominant side (12) Hip pain, left Code(s): M25.552 - PAIN IN LEFT HIP (13) Hyperlipidemia Code(s): E78.5 - HYPERLIPIDEMIA, UNSPECIFIED Qualifiers: Hyperlipidemia type: Pure hypercholesterolemia (14) Hypertension Code(s): I10 - ESSENTIAL (PRIMARY) HYPERTENSION Qualifiers: Hypertension type: essential hypertension Qualified Code(s): I10 - Essential (primary) hypertension (15) Light headed Code(s): R42 - DIZZINESS AND GIDDINESS (16) Pleural effusion Code(s): J90 - PLEURAL EFFUSION, NOT ELSEWHERE CLASSIFIED (17) Pneumonia Code(s): J18.9 - PNEUMONIA, UNSPECIFIED ORGANISM (18) Pre-syncope Code(s): R55 - SYNCOPE AND COLLAPSE (19) Rib fracture Code(s): S22.39XA - FRACTURE OF ONE RIB, UNSP SIDE, INIT FOR CLOS FX Qualifiers: Encounter type: initial encounter Rib fracture type: single rib Fracture type: closed Laterality: left Qualified Code(s): S22.32XA - Fracture of one rib, left side, initial encounter for closed fracture (20) UTI (urinary tract infection) Code(s): N39.0 - URINARY TRACT INFECTION, SITE NOT SPECIFIED (21) Vertigo Code(s): R42 - DIZZINESS AND GIDDINESS Visit type - Emergency Visit Emergency Visit: Yes ED Registration Date: 09/02/18 Care time: The patient presented to the Emergency Department on the above date and was hospitalized for further evaluation of their emergent condition. - New Patient This patient is new to me today: No - Critical Care Critical Care patient: No - Discharge Referral Referred to [facility] No
== END 2018-09-05 18:49 | DRG 480 ==
LOC: JER 09:11 → JERBED 13:36 → J6S 20:43
PROVIDERS: ADMIT Hospitalist; ATTEND Internal Medicine
PROC: 0QS704Z Reposition Left Upper Femur with Internal Fixation Device, Open Approach (ICD-10-PCS; principal; 2018-09-02 15:44)
DX: S72.142A Displaced intertrochanteric fracture of left femur, initial encounter for closed fracture (principal); G93.41 Metabolic encephalopathy; D62 Acute posthemorrhagic anemia; R50.82 Postprocedural fever; K21.9 Gastro-esophageal reflux disease without esophagitis; F41.9 Anxiety disorder, unspecified; F03.90 Unspecified dementia, unspecified severity, without behavioral disturbance, psychotic disturbance, mood disturbance, and anxiety; E78.5 Hyperlipidemia, unspecified; M54.5 Low back pain; I10 Essential (primary) hypertension; R29.6 Repeated falls; W19.XXXA Unspecified fall, initial encounter; Y93.89 Activity, other specified; Y92.128 Other place in nursing home as the place of occurrence of the external cause; Y99.8 Other external cause status; F32.9 Major depressive disorder, single episode, unspecified; Z66 Do not resuscitate
CPT/HCPCS: 36415; 70450-TC; 71045-TC-FY; 72125-TC; 73523-TC-FY; 73552-TC-LT-FY; 74176-TC; 80048; 80053; 81003; 82550; 83735; 84100; 84484; 85025; 85027; 85610; 85730; 86850; 86900; 86901; 87040; 87086; 93005; 93010; 94760; 97116-GP; 97161-GP; 99285-25; J0131

== ENCOUNTER 2018-09-06 11:19 | Emergency (ER) | payer OTHER ==
--- NOTE | 2018-09-06 11:31 | PDOC ---
History of Present Illness - General Chief Complaint: Injury Stated Complaint: FALL Time Seen by Provider: 09/06/18 11:30 History Source: Patient Exam Limitations: No Limitations - History of Present Illness Initial Comments: 09/06/18 11:31 [place] [facility] [address] 88 F with h/o HTN, HLD, GERD, Anxiety, and Dementia, recent L displaced intertrochanter hip fx requiring surgical repair who is presenting to ED after a fall. Patient is a somehwat poor historian and reports that she was walking w / out her walker and tripped over a carpet and fell onto her bottom. She does not recall most of the fall. Complaitns of pain to the L hip and L forearm. [facility], found to have acute left displaced intertrochanteric hip fracture, evaluated by Orthopedics Dr. Lee and had operative repair on (09/02/18) and was admitted and discharged on 1 day ago 09/05/18. She denies any head trauam, neck pain, chest pain, shortness of breath, nausea, vomiting, recent illness, diarrhea. Admits to some constipation. 09/06/18 12:09 Past History - Past Medical History Allergies/Adverse Reactions: Allergies Allergy/AdvReac Type Severity Reaction Status Date / Time Iodinated Contrast- Oral and Allergy Severe Verified 09/06/18 12:15 IV Dye [IV Dye, Iodine Containing Contrast ] meperidine HCl [From Demerol] Allergy Severe Vomiting Verified 09/06/18 12:15 morphine Allergy Severe Vomiting Verified 09/06/18 12:15 pitavastatin calcium Allergy Verified 09/06/18 12:15 [From Livalo] venom-honey bee Allergy Verified 09/06/18 12:15 [bee venom (honey bee)] Home Medications: Ambulatory Orders Cholecalciferol (Vitamin D3) [Vitamin D3 -] 2,000 unit PO DAILY #0 tab 06/22/14 Aspirin 81 mg PO DAILY 06/07/18 Diltiazem Cd [Cardizem Cd -] 90 mg PO DAILY 06/07/18 Sertraline HCl [Zoloft] 50 mg PO DAILY 06/07/18 Docusate Sodium [Colace -] 300 mg PO HS capsule 06/12/18 Polyethylene Glycol 3350 [Miralax 119 gm Btl -] 17 gm PO DAILY bottle 06/12/18 Melatonin 5 mg PO HS 08/08/18 Quetiapine Fumarate [Seroquel -] 25 mg PO HS 08/08/18 Acetaminophen [Tylenol .Regular Strength -] 650 mg PO Q4H PRN tablet 09/05/18 Enoxaparin [Lovenox -] 30 mg SQ DAILY disp.syrin 09/05/18 oxyCODONE HCL [Roxicodone -] 5 mg PO Q4H PRN 4 Days #30 tablet MDD 4 09/05/18 Anemia: No Asthma: No Cancer: No Cardiac Disorders: Yes (VA, cardiac cath; MVP) CVA: No COPD: No CHF: No Dementia: No Diabetes: No GI Disorders: No Disorders: No HTN: Yes Hypercholesterolemia: Yes Liver Disease: No Psychiatric Problems: (anxiety disorder, psychotic disorder w/ delusions, insomnia,mood dx) Seizures: No Thyroid Disease: Yes (hypo) - Surgical History Abdominal Surgery: Yes Appendectomy: Yes Cardiac Surgery: No Cholecystectomy: No Lung Surgery: No Neurologic Surgery: No Orthopedic Surgery: No - Suicide/Smoking/Psychosocial Hx Smoking Status: No Smoking History: Never smoked Have you smoked in the past 12 months: No Number of Cigarettes Smoked Daily: 0 Hx Alcohol Use: No Drug/Substance Use Hx: No Substance Use Type: None Hx Substance Use Treatment: No Review of Systems - Review of Systems Able to Perform ROS?: Yes Comments:: 09/06/18 11:57 GENERAL/CONSTITUTIONAL: No fever or chills. No weakness. HEAD, EYES, EARS, NOSE AND THROAT: No change in vision. No ear pain or discharge. No sore throat. CARDIOVASCULAR: No chest pain or shortness of breath RESPIRATORY: No cough, wheezing, or hemoptysis. GASTROINTESTINAL: No nausea, vomiting, diarrhea +constipation GENITOURINARY: No dysuria, frequency, or change in urination. MUSCULOSKELETAL: No neck or back pain. SKIN: No rash NEUROLOGIC: No headache, vertigo, loss of consciousness, or change in strength/ sensation. ENDOCRINE: No increased thirst. No abnormal weight change HEMATOLOGIC/LYMPHATIC: No anemia, easy bleeding, or history of blood clots. ALLERGIC/IMMUNOLOGIC: No hives or skin allergy. Is the patient limited Marshallese proficient: No *Physical Exam - Physical Exam Comments: 09/06/18 11:53 GENERAL: Awake, alert, and fully oriented, in no acute distress HEAD: No signs of trauma, normocephalic, atraumatic EYES: EOMI, sclera anicteric, conjunctiva clear ENT: oropharynx clear without exudates. Moist mucosa NECK: Normal ROM, supple, LUNGS: No distress, speaks full sentences, clear to auscultation bilaterally HEART: Regular rate and rhythm, normal S1 and S2, harsh systolic murmurs, rubs or gallops, peripheral pulses normal and equal bilaterally. ABDOMEN: Soft, nontender, normoactive bowel sounds. No guarding, no rebound. No masses EXTREMITIES : clean, dry non purulent L sided shauna on thigh and hip, old bruising along the L thigh, limited ROM of hip, L knee 2/2 pain, no pain to palpation of L forearm, elbow, wrist or hand NEUROLOGICAL: Cranial nerves II through XII grossly intact. Normal speech, no focal sensorimotor deficits SKIN: Warm, Dry, normal turgor, no rashes or lesions noted ED Treatment Course - LABORATORY CBC & Chemistry Diagram: 09/06/18 12:00 09/06/18 12:00 Medical Decision Making - Medical Decision Making 09/06/18 12:00 88 F with h/o HTN, HLD, GERD, Anxiety, and Dementia, recent L displaced intertrochanter hip fx requiring surgical repair who is presenting to ED after a fall. Patient is a somehwat poor historian and reports that she was walking w / out her walker and tripped over a carpet and fell onto her bottom. She does not recall most of the fall. Complaitns of pain to the L hip and L forearm. ED Course: Patient with fall liekly mechanical r.o acs vs arrythmia, electrolyte abdnormality consider fx displacement 09/06/18 13:09 labs wnl CXR w/o lung pathology, R upper lobe granuloma per radiology, not noted on XR 09/06/18 15:38 Spoke to orthopedic, Dr. Lee, reviewed images, reports that if not fx noted on final read will follow outpatient. 09/06/18 16:58 Attending read XR with Radiologist - unchanged hip and pelvis from prior *DC/Admit/Observation/Transfer Diagnosis at time of Disposition: Fall - Discharge Dispostion Disposition: HOME Condition at time of disposition: Stable Decision to Admit order: No - Referrals Referrals: Dionicio Bustillo MD [Primary Care Provider] - - Patient Instructions Printed Discharge Instructions: DI for Hip Fracture, How to Prevent Falls Additional Instructions: You were seen in the ED after a fall. In the ED you were evaluated with labwork and imaging. Your results did not show any new changes from previous. There does not appear to be an acute need for immediate hospitalization. You are advised to follow up with your Primary Care Physician within 1 week. ALWAYS walk with a walker and attend rehab and PT as scheduled. Follow up with Orthopedics as previously scheduled. Return to the ED immediately if you experience worsening L hip pain, L forearm pain, headache, neck pain, loss of consciousness, fevers, swelling, numbness, tingling or redness of the L hip or thigh. - Post Discharge Activity
[2018-09-06 11:38] VITALS: BP 139/66; PULSE 93; TEMP 98.6; BMI 26.2
[2018-09-06] MEDS ORDERED: ACETAMINOPHEN 1000 MG/100 ML VIAL (NON FORMULARY) IVPB ONE (11:50)
[2018-09-06] MEDS ORDERED: ACETAMINOPHEN INJECTION 100 ML IVPB ONE (12:01)
[2018-09-06 12:05] LABS: BASO % 0.3 % (0-2.0); EOS % 0.2 % (0-4.5); HEMOGLOBIN 10.1 GM/dL (10.7-15.3); LYMPH % 13.8 % (8-40); MCH 29.9 pg (25.7-33.7); MCHC 33.7 g/dl (32.0-36.0); MEAN CELL VOLUME 88.7 fl (80-96); MEAN PLT VOLUME 8.7 fl (7.5-11.1); MONO % 12.8 % (3.8-10.2); NEUT % 72.9 % (42.8-82.8); PLATELET COUNT 223 K/MM3 (134-434); RBC 3.38 M/mm3 (3.60-5.2); WHITE BLOOD COUNT 9.9 K/mm3 (4.0-10.0)
[2018-09-06 12:32] LABS: ALBUMIN 3.2 g/dl (3.4-5.0); ALK PHOS 64 U/L (45-117); ANION GAP 6 MMOL/L (8-16); BLOOD UREA NITROGEN 16 mg/dL (7-18); CALCIUM 9.2 mg/dL (8.5-10.1); CHLORIDE 108 mmol/L (98-107); CO2 31 mmol/L (21-32); CREATININE 0.7 mg/dL (0.55-1.3); GLUCOSE,RANDOM 108 mg/dL (74-106); POTASSIUM 3.6 mmol/L (3.5-5.1); SGOT/AST 25 U/L (15-37); SGPT/ALT 27 U/L (13-61); SODIUM 144 mmol/L (136-145); TOT PROT 5.8 g/dl (6.4-8.2)
--- NOTE | 2018-09-06 12:43 | PDOC ---
Documentation entered by Aundrea Pinto SCRIBE, acting as scribe for Roc Oneill MD. Roc Oneill MD: This documentation has been prepared by the Blair richard Amanda, SCRIBE, under my direction and personally reviewed by me in its entirety. I confirm that the documentation accurately reflects all work, treatment, procedures, and medical decision making performed by me. Attending Attestation - Resident Resident Name: Consuelo Johnson - ED Attending Attestation I have performed the following: I have examined & evaluated the patient, The case was reviewed & discussed with the resident, I agree w/resident's findings & plan, Exceptions are as noted - HPI HPI: 09/06/18 12:07 The patient is a 88 year old female with h/o HTN, HLD, GERD, Anxiety, and dementia, s/p recent L displaced intertrochanter hip fx requiring surgical repair who is presenting to ED via ems from [facility] after an unwitnessed fall s/p tripping on a carpet today. She states she fell onto her bottom but does not recall the events of the fall. She reports pain to the L hip and L forearm. The patient walks with a walker at baseline. The patient was discharged from the hospital after her hip surgery and transferred back to [facility]. She denies any head trauma, neck pain, chest pain, shortness of breath, nausea, vomiting, recent illness, diarrhea. - Physicial Exam PE: 09/06/18 12:10 GENERAL: Awake, alert, and fully oriented, in no acute distress HEAD: No signs of trauma EYES: PERRLA, EOMI, sclera anicteric, conjunctiva clear ENT: Auricles normal inspection, hearing grossly normal, nares patent, oropharynx clear without exudates. Moist mucosa NECK: Normal ROM, supple, no lymphadenopathy, JVD, or masses LUNGS: Breath sounds equal, clear to auscultation bilaterally. No wheezes, and no crackles HEART: Regular rate and rhythm, normal S1 and S2, no murmurs, rubs or gallops ABDOMEN: Soft, nontender, normoactive bowel sounds. No guarding, no rebound. No masses EXTREMITIES:(+) Surgical scars with shauna to left lateral hip without fluctuance, drainage or erythema. Large left medial thigh ecchymosis. soft compartment, pain on ROM of left hip. mild left lateral wrist ttp. Full strength and mild left distal forearm pain on ROM. Otherwise, no edema. No clubbing or cyanosis. No cords. NEUROLOGICAL: Alert, awake, appropriate. Cranial nerves 2-12 intact. No deficits to light touch in face, upper extremities and lower extremities. No motor deficits in the in face, upper extremities and lower extremities. No pronator drift. Normoreflexic in the upper and lower extremities. Normal speech. Toes are down-going bilaterally. Gait unassessed. No dysmetria. No dysdiadochokinesis. No skew deviation. No abnormal nystagmus SKIN: Warm, Dry, normal turgor, no rashes or lesions noted. - Medical Decision Making 09/06/18 13:01 A portion of this note was documented by scribe services under my direction. I have reviewed the details of the note, within reason, and agree with the documentation with the following case summary and management plan written by me. Patient treated in the ED. Nursing notes are reviewed and incorporated into the medical decision-making. Vital signs reviewed. Peripheral IV access obtained by the nurse, laboratory studies are drawn and sent, reviewed and interpreted by myself. Vital Signs Temp Pulse Resp BP Pulse Ox 98.6 F 93 H 17 139/66 98 09/06/18 11:35 09/06/18 11:35 09/06/18 11:35 09/06/18 11:35 09/06/18 11:35 88-year-old female patient with history of dementia and other medical problems presents with mechanical fall. The patient's currently at [facility], and had a mechanical fall. Patient reports hitting her head but denies loss of conscious. She reports pain along the left forearm and left hip. She does not know if the bruising on the left thigh is new. The compartments are soft and low suspicion for compartment syndrome at this time. We'll obtain imaging of the left hip and pelvis and femur as well as the left wrist and left forearm. We'll contact patient's orthopedist and reassess. 09/06/18 16:[address] and c-spine CT reviewed. No acute findings. I have spoken with Dr. Lee from orthopedics. He reports that the bruising is okay as long as the compartments are soft (which is soft here). The xrays appear unchanged to me at this time. Upper extremities xrays reviewed by me, pending official radiology read. No acute fractures. Pt is cleared for discharged home and pt can follow up with orhtopedics. Heart Score/ECG Review #1 ECG reviewed & interpreted by me at: 12:20 09/06/18 13:00 NSR 93, no std/maryuri, TWI V1-V6, T wave flat avF, normal axis, normal intervals, QTC 467 msec
--- NOTE | 2018-09-07 10:49 | EKG ---
Test Reason : Blood Pressure : / mmHG Vent. Rate : 093 BPM Atrial Rate : 093 BPM P-R Int : 136 ms QRS Dur : 078 ms QT Int : 376 ms P-R-T Axes : 054 022 028 degrees QTc Int : 467 ms NORMAL SINUS RHYTHM POSSIBLE LEFT ATRIAL ENLARGEMENT POSSIBLE LATERAL INFARCT (CITED ON OR BEFORE 07-JUN-2018) POSSIBLE INFERIOR INFARCT (CITED ON OR BEFORE 07-JUN-2018) T WAVE ABNORMALITY, CONSIDER ANTERIOR ISCHEMIA ABNORMAL ECG Confirmed by HARLEEN LONGO MD ([id number]) on 09/07/2018 10:49:17 AM Referred By: Confirmed By:HARLEEN LONGO MD
== END 2018-09-06 18:50 ==
LOC: JER 11:19
PROC: 3E033NZ Introduction of Analgesics, Hypnotics, Sedatives into Peripheral Vein, Percutaneous Approach (ICD-10-PCS; principal; 2018-09-06)
DX: M25.552 Pain in left hip (principal); M79.632 Pain in left forearm; W18.09XA Striking against other object with subsequent fall, initial encounter; Y93.89 Activity, other specified; Y92.128 Other place in nursing home as the place of occurrence of the external cause; Y99.8 Other external cause status; S72.142D Displaced intertrochanteric fracture of left femur, subsequent encounter for closed fracture with routine healing; I25.10 Atherosclerotic heart disease of native coronary artery without angina pectoris; I10 Essential (primary) hypertension; Z98.61 Coronary angioplasty status; I25.2 Old myocardial infarction; E78.00 Pure hypercholesterolemia, unspecified; K21.9 Gastro-esophageal reflux disease without esophagitis; F41.8 Other specified anxiety disorders; F03.90 Unspecified dementia, unspecified severity, without behavioral disturbance, psychotic disturbance, mood disturbance, and anxiety; F39 Unspecified mood [affective] disorder; Z88.8 Allergy status to other drugs, medicaments and biological substances
CPT/HCPCS: 36415; 70450-TC; 71045-TC-FY; 72125-TC; 73070-TC-LT-FY; 73090-TC-LT-FY; 73110-TC-LT-FY; 73523-TC-FY; 73552-TC-LT-FY; 80053; 84484; 85025; 93005; 93010; 99282-25; J0131

== ENCOUNTER 2018-09-14 13:21 | Emergency (ER) | payer OTHER ==
[2018-09-14 14:21] VITALS: BMI 22.2
--- NOTE | 2018-09-14 15:04 | PDOC ---
History of Present Illness - General Chief Complaint: Injury Stated Complaint: AMS Time Seen by Provider: 09/14/18 14:52 - History of Present Illness Initial Comments: 09/14/18 15:26 The patient is an 88 year old female with a history of HTN, HLD, NC, CAD, Dementia with psychotic features who presents for evaluation of following a fall. The patient is accompanied by her son who assists in providing the history. They report that the patient has had multiple falls in the past few weeks with a recent hip fracture on 09/02/18. Per the patient's NH, the patient was found following an unwitnessed fall today prompting her presentation to the ED for further evaluation. The patient is a poor historian and does not recall her fall or how she fell. The patient's son notes new bruising to her left lower extremity with pain to that location. ROS is unobtainable due to the patient's dementia. Past History - Past Medical History Allergies/Adverse Reactions: Allergies Allergy/AdvReac Type Severity Reaction Status Date / Time Iodinated Contrast- Oral and Allergy Severe Verified 09/06/18 12:15 IV Dye [IV Dye, Iodine Containing Contrast ] meperidine HCl [From Demerol] Allergy Severe Vomiting Verified 09/06/18 12:15 morphine Allergy Severe Vomiting Verified 09/06/18 12:15 pitavastatin calcium Allergy Verified 09/06/18 12:15 [From Livalo] venom-honey bee Allergy Verified 09/06/18 12:15 [bee venom (honey bee)] Home Medications: Ambulatory Orders Cholecalciferol (Vitamin D3) [Vitamin D3 -] 2,000 unit PO DAILY #0 tab 06/22/14 Aspirin 81 mg PO DAILY 06/07/18 Diltiazem Cd [Cardizem Cd -] 90 mg PO DAILY 06/07/18 Sertraline HCl [Zoloft] 50 mg PO DAILY 06/07/18 Docusate Sodium [Colace -] 300 mg PO HS capsule 06/12/18 Polyethylene Glycol 3350 [Miralax 119 gm Btl -] 17 gm PO DAILY bottle 06/12/18 Melatonin 5 mg PO HS 08/08/18 Quetiapine Fumarate [Seroquel -] 25 mg PO HS 08/08/18 Acetaminophen [Tylenol .Regular Strength -] 650 mg PO Q4H PRN tablet 09/05/18 Enoxaparin [Lovenox -] 30 mg SQ DAILY disp.syrin 09/05/18 oxyCODONE HCL [Roxicodone -] 5 mg PO Q4H PRN 4 Days #30 tablet MDD 4 09/05/18 Anemia: No Asthma: No Cancer: No Cardiac Disorders: Yes ([place], cardiac cath; MVP) CVA: No COPD: No CHF: No Dementia: No Diabetes: No GI Disorders: No Disorders: No HTN: Yes Hypercholesterolemia: Yes Liver Disease: No Psychiatric Problems: (anxiety disorder, psychotic disorder w/ delusions, insomnia,mood dx) Seizures: No Thyroid Disease: Yes (hypo) - Surgical History Abdominal Surgery: Yes Appendectomy: Yes Cardiac Surgery: No Cholecystectomy: No Lung Surgery: No Neurologic Surgery: No Orthopedic Surgery: No - Immunization History Immunization Up to Date: Yes - Suicide/Smoking/Psychosocial Hx Smoking Status: No Smoking History: Never smoked Have you smoked in the past 12 months: No Number of Cigarettes Smoked Daily: 0 Information on smoking cessation initiated: No Hx Alcohol Use: No Drug/Substance Use Hx: No Substance Use Type: None Hx Substance Use Treatment: No Review of Systems - Review of Systems Able to Perform ROS?: No (Dementia) *Physical Exam - Vital Signs Last Vital Signs Temp Pulse Resp BP Pulse Ox 98.0 F 90 16 130/60 95 09/14/18 13:22 09/14/18 13:22 09/14/18 13:22 09/14/18 13:22 09/14/18 13:22 - Physical Exam Comments: 09/14/18 15:32 General Appearance: Nourished. No Apparent Distress HEENT: EOMI, BERYL. Atraumatic. No Pharyngeal Erythema, Tonsillar Exudate, Tonsillar Erythema Neck: No Cervical Lymphadenopathy or C-spine tenderness Respiratory/Chest: Lungs Clear, Normal Breath Sounds. No Crackles, Rales, Rhonchi, Wheezing Cardiovascular: Regular Rhythm, Regular Rate. 3/6 Systolic Murmur noted on exam. No Gallops, Rubs Gastrointestinal/Abdominal: Normal Bowel Sounds, Soft. No Guarding, Rebound, Tenderness Musculoskeletal: No CVA Tenderness Extremity: Diffuse bruising to the left foot, ankle and calf noted on exam with tenderness to palpation. 2+ pitting edema noted to the left lower extremity. Trace edema noted to the right lower extremity. 2+ dp pulses bilaterally. Normal Capillary Refill Integumentary: Normal Color, Dry, Warm Neurologic: zinc furnace charger II-XII NML intact, Oriented x1, Alert, Normal Mood/Affect, Normal Response, Motor Strength 5/5. ED Treatment Course - LABORATORY CBC & Chemistry Diagram: 09/14/18 17:00 09/14/18 17:00 Medical Decision Making - Medical Decision Making 09/14/18 15:33 The patient is an 88 year old female with a history of HTN, HLD, NC, CAD, Dementia with psychotic features who presents for evaluation of following a fall. Differential includes but is not limited to: Intracranial process, Fracture, ACS, Infectious, Metabolic Derangement. Given the patient's history and physical exam, we will obtain a cbc, cmp, troponin, ekg, chest plain film, head and cervical ct, lower extremity plain films, DVT US to evaluate further. We will continue to monitor and reassess while here in the ED. 09/14/18 20:15 CBC, cmp, troponin is unremarkable. Chest plain film is unremarkable. Head and cervical Ct demonstrates no acute findings. Lower extremity plain films are unremarkable. DVT US is negative for DVT as read by our radiologist. The patient's lower extremity bruising is likely from her prior surgery. We have marked the patient's DP pulse on that side. She appears clinically well on exam. We are comfortable discharging the patient home in stable condition. Patient and family made aware of impression and plan, return precautions discussed including but not limited to worsening pain or symptoms, fevers, or signs of infection, chest pain, respiratory distress, inability to tolerate oral intake, dehydration, syncope, or neurologic changes. The patient is to follow up with PMD and as recommended within 1 week, follow up information provided and the patient will call for an appointment. The patient is to take medications as instructed for duration of time and continue with supportive care , avoid triggers and precipitants. Patient is safe for outpatient follow-up. *DC/Admit/Observation/Transfer Diagnosis at time of Disposition: Fall Qualifiers: Encounter type: initial encounter Qualified Code(s): W19.XXXA - Unspecified fall, initial encounter - Discharge Dispostion Disposition: HOME Condition at time of disposition: Stable Decision to Admit order: No - Referrals Referrals: Dionicio Bustillo MD [Primary Care Provider] - - Patient Instructions Printed Discharge Instructions: How to Prevent Falls Additional Instructions: 1) Please follow-up with your primary care doctor in the next 2-3 days. Please call tomorrow to schedule a follow up appointment. If you cannot follow up with your doctor within 1 week please return to the Emergency Department for any urgent issues. 2) Your laboratory / imaging results were normal here in the ER. We have marked a location of your pulse on your foot. The bruising of your leg is likely due to your surgery. 3) If you have any worsening of symptoms or any other concerns please return to the ER immediately. Return if worsening symptoms including fevers, headache, vomiting, visual or hearing disturbances, abdominal pain, chest pain, shortness of breath, syncope, dehydration, inability to take things by mouth/vomiting, altered mental status, or worsening concerning symptoms. 4) Please continue taking your home medications as directed. - Post Discharge Activity
--- NOTE | 2018-09-14 15:35 | PDOC ---
Attending Attestation - Resident Resident Name: Earl Moreno - ED Attending Attestation I have performed the following: I have examined & evaluated the patient, The case was reviewed & discussed with the resident, I agree w/resident's findings & plan, Exceptions are as noted - HPI HPI: 88 yo F history HTN, HL, KS, dementia presents s/p unwitnessed fall at [facility]. Patient does not recall any details (history of dementia). Now with LLE bruising that was not present after the surgery. Patient is on lovenox at the [facility]. - Physicial Exam PE: GENERAL: Awake, alert, oriented to person, in no acute distress HEAD: No signs of trauma EYES: PERRLA, EOMI, sclera anicteric, conjunctiva clear ENT: Auricles normal inspection, hearing grossly normal, nares patent, oropharynx clear without exudates. Moist mucosa NECK: Normal ROM, supple, no lymphadenopathy, JVD, or masses LUNGS: Breath sounds equal, clear to auscultation bilaterally. No wheezes, and no crackles HEART: Regular rate and rhythm, normal S1 and S2, no murmurs, rubs or gallops ABDOMEN: Soft, nontender, normoactive bowel sounds. No guarding, no rebound. No masses EXTREMITIES: LLE with 2+ pitting edema, ecchymosis to the foot and lower leg. + Tenderness to L ankle and calf. Remainder of extremities with normal range of motion, no edema. No clubbing or cyanosis. No cords, erythema, or tenderness NEUROLOGICAL: Cranial nerves II through XII grossly intact. Normal speech. Motor and sensation intact. Gait not tested due to nature of complaint SKIN: Warm, Dry, normal turgor, no rashes or lesions noted. - Medical Decision Making Pt with falls in [place]. P/w bruising to the L lower leg and foot. Will obtain XRs of the lower leg, doppler r/o DVT.
[2018-09-14 17:13] LABS: BASO % 1.2 % (0-2.0); EOS % 0.3 % (0-4.5); HEMATOCRIT 30.9 % (32.4-45.2); HEMOGLOBIN 10.1 GM/dL (10.7-15.3); LYMPH % 15.6 % (8-40); MCH 29.6 pg (25.7-33.7); MCHC 32.6 g/dl (32.0-36.0); MEAN CELL VOLUME 90.7 fl (80-96); MEAN PLT VOLUME 8.3 fl (7.5-11.1); MONO % 7.8 % (3.8-10.2); NEUT % 75.1 % (42.8-82.8); PLATELET COUNT 363 K/MM3 (134-434); RBC 3.41 M/mm3 (3.60-5.2); RDW 16.8 % (11.6-15.6); WHITE BLOOD COUNT 9.4 K/mm3 (4.0-10.0)
[2018-09-14 18:01] LABS: EPI CELLS 2.2 /HPF (0-5/HPF); URINE APPEARANCE CLEAR; URINE BACTERIA 18.1 /hpf (NEGATIVE); URINE BILIRUBIN NEGATIVE (NEGATIVE); URINE CASTS 4 /lpf (0-8); URINE COLOR YELLOW; URINE GLUCOSE (UA) NEGATIVE (NEGATIVE); URINE KETONE TRACE (NEGATIVE); URINE LEUK ESTERASE 2+ (NEGATIVE); URINE NITRITE NEGATIVE (NEGATIVE); URINE PROTEIN NEGATIVE (NEGATIVE); URINE RBC 3 /hpf (0-4); URINE WBC 8 /hpf (0-5)
[2018-09-14 18:03] LABS: ALK PHOS 158 U/L (45-117); ANION GAP 7 MMOL/L (8-16); BILIRUBIN,TOTAL 1.1 mg/dL (0.2-1); BLOOD UREA NITROGEN 14 mg/dL (7-18); CHLORIDE 108 mmol/L (98-107); CO2 28 mmol/L (21-32); CREATININE 0.6 mg/dL (0.55-1.3); GLUCOSE,RANDOM 99 mg/dL (74-106); POTASSIUM 3.9 mmol/L (3.5-5.1); SGOT/AST 34 U/L (15-37); SGPT/ALT 35 U/L (13-61); SODIUM 142 mmol/L (136-145); TOT PROT 5.5 g/dl (6.4-8.2)
[2018-09-14 18:07] LABS: INR 0.97 (0.83-1.09); PROTHROMBIN TIME (PATIENT) 11.5 SEC (9.7-13.0)
[2018-09-14 18:09] LABS: ACTIVATED PTT 25.5 SECONDS (25.2-36.5)
[2018-09-14] MEDS ORDERED: ACETAMINOPHEN 325 MG TABLET (FP) ONE (21:18)
[2018-09-14] MEDS ORDERED: ACETAMINOPHEN 500 MG TABLET (FP) PO ONE (21:18)
[2018-09-14 22:04] VITALS: BP 122/75; PULSE 85; TEMP 98.1
--- NOTE | 2018-09-15 15:10 | EKG ---
Test Reason : Blood Pressure : / mmHG Vent. Rate : 093 BPM Atrial Rate : 093 BPM P-R Int : 158 ms QRS Dur : 084 ms QT Int : 364 ms P-R-T Axes : 074 012 046 degrees QTc Int : 452 ms NORMAL SINUS RHYTHM POSSIBLE LEFT ATRIAL ENLARGEMENT LOW VOLTAGE QRS CANNOT RULE OUT INFERIOR INFARCT (CITED ON OR BEFORE 07-JUN-2018) ABNORMAL ECG WHEN COMPARED WITH ECG OF 06-SEP-2018 12:21, BORDERLINE CRITERIA FOR LATERAL INFARCT ARE NO LONGER PRESENT T WAVE INVERSION NO LONGER EVIDENT IN LATERAL LEADS Confirmed by SOWMYA WOO MD ([id number]) on 09/15/2018 3:10:33 PM Referred By: Confirmed By:SOWMYA WOO MD
== END 2018-09-14 21:55 | disposition home or self-care (01) ==
LOC: JER 13:21
DX: S89.82XA Other specified injuries of left lower leg, initial encounter (principal); Z91.81 History of falling; W18.39XA Other fall on same level, initial encounter; Y93.89 Activity, other specified; Y92.122 Bedroom in nursing home as the place of occurrence of the external cause; Y99.8 Other external cause status; I25.10 Atherosclerotic heart disease of native coronary artery without angina pectoris; I10 Essential (primary) hypertension; I25.2 Old myocardial infarction; Z95.5 Presence of coronary angioplasty implant and graft; F41.8 Other specified anxiety disorders; E03.9 Hypothyroidism, unspecified; F03.90 Unspecified dementia, unspecified severity, without behavioral disturbance, psychotic disturbance, mood disturbance, and anxiety
CPT/HCPCS: 36415; 70450-TC; 71045-TC-FY; 72125-TC; 73590-TC-LT-FY; 73610-TC-LT-FY; 73630-TC-LT; 80053; 81003; 82550; 84484; 85025; 85610; 85730; 93005; 93010; 93970-TC; 99283-25

== ENCOUNTER 2018-10-03 17:33 | Emergency (ER) | payer OTHER ==
[2018-10-03 17:51] VITALS: BMI 21.4
--- NOTE | 2018-10-03 18:05 | PDOC ---
History of Present Illness - General Chief Complaint: Syncope/Near Syncope Stated Complaint: syncope Time Seen by Provider: 10/03/18 17:54 - History of Present Illness Initial Comments: Genevieve Maldonado is an 88yo woman with a PMH of dementia, GERD, mutliple falls ( injuries including rib fx and left hip fx), delusions, HTN, HLD who presents from [facility] with a period of unresponsiveness. She does not remember the incident due to her dementia. Per report from [facility], she was found unresponsive in her wheelchair. She was moved to her bed and intermittently responded to her name. There is no history of fall. Past History - Past Medical History Allergies/Adverse Reactions: Allergies Allergy/AdvReac Type Severity Reaction Status Date / Time Iodinated Contrast- Oral and Allergy Severe Verified 10/03/18 17:51 IV Dye [IV Dye, Iodine Containing Contrast ] meperidine HCl [From Demerol] Allergy Severe Vomiting Verified 10/03/18 17:51 morphine Allergy Severe Vomiting Verified 10/03/18 17:51 pitavastatin calcium Allergy Verified 10/03/18 17:51 [From Livalo] venom-honey bee Allergy Verified 10/03/18 17:51 [bee venom (honey bee)] Home Medications: Ambulatory Orders Cholecalciferol (Vitamin D3) [Vitamin D3 -] 2,000 unit PO DAILY #0 tab 06/22/14 Aspirin 81 mg PO DAILY 06/07/18 Diltiazem Cd [Cardizem Cd -] 90 mg PO DAILY 06/07/18 Sertraline HCl [Zoloft] 50 mg PO DAILY 06/07/18 Docusate Sodium [Colace -] 300 mg PO HS capsule 06/12/18 Polyethylene Glycol 3350 [Miralax 119 gm Btl -] 17 gm PO DAILY bottle 06/12/18 Acetaminophen [Tylenol .Regular Strength -] 650 mg PO Q4H PRN tablet 09/05/18 Enoxaparin [Lovenox -] 30 mg SQ DAILY disp.syrin 09/05/18 oxyCODONE HCL [Roxicodone -] 5 mg PO Q4H PRN 4 Days #30 tablet MDD 4 09/05/18 Donepezil HCl [Aricept] 10 mg PO DAILY 10/03/18 Mirtazapine [Remeron -] 15 mg PO HS 10/03/18 Nitrofurantoin Monohyd/M-Cryst [Macrobid -] 100 mg PO BID 10/03/18 Anemia: No Asthma: No Cancer: No Cardiac Disorders: Yes ([place], cardiac cath; MVP) CVA: No COPD: No CHF: No Dementia: Yes Diabetes: No GI Disorders: No Disorders: No HTN: Yes Hypercholesterolemia: Yes Liver Disease: No Psychiatric Problems: (anxiety disorder, psychotic disorder w/ delusions, insomnia,mood dx) Seizures: No Thyroid Disease: Yes (hypo) - Surgical History Abdominal Surgery: Yes Appendectomy: Yes Cardiac Surgery: No Cholecystectomy: No Lung Surgery: No Neurologic Surgery: No Orthopedic Surgery: No - Immunization History Immunization Up to Date: Yes - Suicide/Smoking/Psychosocial Hx Smoking Status: No Smoking History: Unknown if ever smoked Have you smoked in the past 12 months: No Number of Cigarettes Smoked Daily: 0 Hx Alcohol Use: No Drug/Substance Use Hx: No Substance Use Type: None Hx Substance Use Treatment: No Review of Systems - Review of Systems Comments:: Could not obtain due to dementia. *Physical Exam - Vital Signs Last Vital Signs Temp Pulse Resp BP Pulse Ox 98.3 F 76 18 161/73 95 10/03/18 17:48 10/03/18 17:48 10/03/18 17:48 10/03/18 17:48 10/03/18 17:48 - Physical Exam Comments: General: Comfortable, no acute distress HEENT: PERRL, EOMI, MMM, voice normal, atraumatic Cards: RRR, no murmur appreciated Pulm: Comfortable on room air, clear to auscultation bilaterally Abd: Soft, nondistended. Epigastric and LUQ TTP Ext: Atraumatic. No LE edema. Vasc: Extremities WWP. Skin: Normal color, no rashes or lesions Neuro: Awake, oriented to self, CN grossly intact, normal speech, motor grossly intact Psych: Pleasant and cooperative ED Treatment Course - LABORATORY CBC & Chemistry Diagram: 10/03/18 18:26 10/03/18 18:26 Medical Decision Making - Medical Decision Making 10/03/18 18:04 Genevieve Maldonado is an 88yo woman with a PMH of dementia, GERD, mutliple falls ( injuries including rib fx and left hip fx), delusions, HTN, HLD who presents from [facility] with a period of unresponsiveness. She does not remember the incident due to her dementia. Per report from [facility], she was found unresponsive in her wheelchair. She was moved to her bed and intermittently responded to her name. There is no history of fall. - No apparent injury on exam - Unclear whether episode was sycnope - LUQ and epigastric TTP on exam - CBC, CMP, trop, EKG, CXR, amylase, lipase 10/03/18 19:11 - Signed out to Dr Melvin for the remainder of ED workup. Discussed with Dr Segovia. Fanny Cruz PGY1 *DC/Admit/Observation/Transfer Diagnosis at time of Disposition: Altered consciousness - Referrals - Patient Instructions - Post Discharge Activity
[2018-10-03 18:36] LABS: EOS % 1.2 % (0-4.5); HEMATOCRIT 37.6 % (32.4-45.2); HEMOGLOBIN 11.7 GM/dL (10.7-15.3); LYMPH % 25.7 % (8-40); MCH 28.6 pg (25.7-33.7); MCHC 31.3 g/dl (32.0-36.0); MEAN CELL VOLUME 91.4 fl (80-96); MEAN PLT VOLUME 9.2 fl (7.5-11.1); MONO % 10.6 % (3.8-10.2); NEUT % 61.5 % (42.8-82.8); PLATELET COUNT 216 K/MM3 (134-434); RBC 4.11 M/mm3 (3.60-5.2); RDW 15.9 % (11.6-15.6); WHITE BLOOD COUNT 5.8 K/mm3 (4.0-10.0)
[2018-10-03 19:17] LABS: PH,URINE 6.5 (5.0-8.0); URINE APPEARANCE CLEAR; URINE BILIRUBIN NEGATIVE (NEGATIVE); URINE COLOR YELLOW; URINE GLUCOSE (UA) NEGATIVE (NEGATIVE); URINE KETONE NEGATIVE (NEGATIVE); URINE LEUK ESTERASE NEGATIVE (NEGATIVE); URINE NITRITE NEGATIVE (NEGATIVE); URINE PROTEIN NEGATIVE (NEGATIVE)
--- NOTE | 2018-10-03 19:18 | PDOC ---
Documentation entered by Melita Mancera SCRIBE, acting as scribe for Ebony Segovia MD. Ebony Segovia MD: This documentation has been prepared by the bhaskaribe, Melita Mancera SCRIBE, under my direction and personally reviewed by me in its entirety. I confirm that the documentation accurately reflects all work, treatment, procedures, and medical decision making performed by me. Attending Attestation - Resident Resident Name: Fanny Cruz - ED Attending Attestation I have performed the following: I have examined & evaluated the patient, The case was reviewed & discussed with the resident, I agree w/resident's findings & plan, Exceptions are as noted - HPI HPI: 10/03/18 19:02 The patient is an 88 year old female with past medical history of hypertension, hyperlipidemia, GERD, high fall risk, s/p left hip fracture (s/p gamma nail procedure), dementia, who arrives to the ED via EMS from [facility] after an episode of unresponsiveness. This occurred while she was in her wheelchair and quickly responsive when she was moved to her bed. In the ED she is asymptomatic. No fevers or chills. No cough, SOB, chest pain, NVD, changes in urination. PCP: Dr. Montero - Physicial Exam PE: 10/03/18 18:50 GENERAL: The patient is in no acute distress, very pleasant. ENT: Ears normal, nares patent, oropharynx clear without exudates. Moist mucous membranes. NECK: Normal range of motion, supple LUNGS: Breath sounds equal, clear to auscultation bilaterally. No wheezes, and no crackles. HEART:Regular rate and rhythm, normal S1 and S2 without murmur, rub or gallop. ABDOMEN: Soft, nontender, normoactive bowel sounds. EXTREMITIES: Left hip suture line clearn dry and intact, shauna in place, no swelling or drainage NEUROLOGICAL: Cranial nerves II through XII grossly intact. Normal speech. No focal neurological deficits. SKIN: see above - Medical Decision Making 10/03/18 18:51 88 yo F 88 F h/o HTN, HLD, GERD, Anxiety, Dementia, recent L displaced intertrochanter hip fx s/p surgical repair who presents to the ER s/p syncopal episode? Pt is largely unable to give any historical information Currently, patient feels well Will do: Labs EKG Will place on observation EKG : NSR rate of 76 bpm, axis nml, intervals nml, no st elevation or depression , no pathological q waves Labs pending Signed out to Dr Mejia
--- NOTE | 2018-10-03 19:29 | PDOC ---
*Physical Exam - Vital Signs Last Vital Signs Temp Pulse Resp BP Pulse Ox 98.3 F 76 18 161/73 95 10/03/18 17:48 10/03/18 17:48 10/03/18 17:48 10/03/18 17:48 10/03/18 17:48 ED Treatment Course - LABORATORY CBC & Chemistry Diagram: 10/03/18 18:26 10/03/18 18:26 - ADDITIONAL ORDERS Additional order review: Laboratory Results 10/03/18 10/03/18 18:40 18:26 Total Amylase Cancelled Lipase Cancelled Urine Color Yellow Urine Appearance Clear Urine pH 6.5 Ur Specific [place] 1.015 Urine Protein Negative Urine Glucose (UA) Negative Urine Ketones Negative Urine Blood Negative Urine Nitrite Negative Urine Bilirubin Negative Urine Urobilinogen 1.0 Ur Leukocyte Esterase Negative 10/03/18 18:26 RBC 4.11 MCV 91.4 MCHC 31.3 L RDW 15.9 H MPV 9.2 D Neutrophils % 61.5 Lymphocytes % 25.7 D Monocytes % 10.6 H Eosinophils % 1.2 D Basophils % 1.0 Medical Decision Making - Medical Decision Making 10/03/18 19:00 Received sign out from resident Dr. Cruz. In short, pt is a 88 y/ o female with PMH of dementia, GERD, mutliple falls (injuries including rib fx and left hip fx), delusions, HTN, HLD. She presents today from [facility] after a possible recurrent syncopal episodes in her wheelchair. ED workup unremarkable for acute abnormalities. No anemia, leukocytosis, electrolyte derangement, troponin elevation, pyuria, nitrites, or leukocyte esterase. Urine culture pending. Will admit the pt for syncopal episode. Son at bedside. Discussed laboratory results and decision to admit. Expressed verbal understanding and agreement with plan. 10/03/18 22:01 Telephone consultation with resident Dr. Georges. Verbally appraised of the pts HPI, ED course, and current plan of management. Will admit the pt to telemetry for observation. *DC/Admit/Observation/Transfer Diagnosis at time of Disposition: Altered consciousness Syncope Qualifiers: Syncope type: unspecified Qualified Code(s): R55 - Syncope and collapse - Discharge Dispostion Condition at time of disposition: Stable Decision to Admit order: Yes - Referrals - Patient Instructions - Post Discharge Activity
[2018-10-03 20:03] LABS: ALBUMIN 3.2 g/dl (3.4-5.0); ALK PHOS 322 U/L (45-117); AMYLASE 49 U/L (25-115); ANION GAP 6 MMOL/L (8-16); BILIRUBIN,TOTAL 0.2 mg/dL (0.2-1); BLOOD UREA NITROGEN 16 mg/dL (7-18); CALCIUM 8.9 mg/dL (8.5-10.1); CHLORIDE 107 mmol/L (98-107); CO2 31 mmol/L (21-32); CREATININE 0.7 mg/dL (0.55-1.3); GLUCOSE,RANDOM 91 mg/dL (74-106); LIPASE 241 U/L (73-393); MAGNESIUM 2.5 mg/dL (1.8-2.4); SGOT/AST 34 U/L (15-37); SGPT/ALT 38 U/L (13-61); SODIUM 145 mmol/L (136-145); TOT PROT 5.7 g/dl (6.4-8.2)
--- NOTE | 2018-10-03 22:23 | PN ---
Teaching Attending Note Name of Resident: Adriel Georges ATTENDING PHYSICIAN STATEMENT I saw and evaluated the patient. I reviewed the resident's note and discussed the case with the resident. I agree with the resident's findings and plan as documented. SUBJECTIVE: Seen and examined; please refer to resident note for further historical information. She presents from [place] today for period of unresponsiveness; found in WC with 'head on table.' Son thinks that she may have been sleeping. She was moved from WC to bed then was responding appropriately. No documented seizure activity, post-ictal state. No fall. Very limited history due to underlying dementia. Due to this concern she was brought to the ER. CT pending given hx meningioma; has had multiple this year all negative. 10 sys ROS couldn't be reliably obtained due to underlying PMH, PSH, FH, SH reviewed Home Medications Medication Instructions Recorded Cholecalciferol (Vitamin D3) 2,000 unit PO DAILY #0 tab 06/22/14 [Vitamin D3 -] Aspirin 81 mg PO DAILY 06/07/18 Diltiazem Cd [Cardizem Cd -] 90 mg PO DAILY 06/07/18 Sertraline HCl [Zoloft] 50 mg PO DAILY 06/07/18 Docusate Sodium [Colace -] 300 mg PO HS capsule 06/12/18 Polyethylene Glycol 3350 [Miralax 17 gm PO DAILY bottle 06/12/18 119 gm Btl -] Acetaminophen [Tylenol .Regular 650 mg PO Q4H PRN tablet 09/05/18 Strength -] Enoxaparin [Lovenox -] 30 mg SQ DAILY disp.syrin 09/05/18 oxyCODONE HCL [Roxicodone -] 5 mg PO Q4H PRN 4 Days #30 tablet 09/05/18 MDD 4 Donepezil HCl [Aricept] 10 mg PO DAILY 10/03/18 Mirtazapine [Remeron -] 15 mg PO HS 10/03/18 Nitrofurantoin Monohyd/M-Cryst 100 mg PO BID 10/03/18 [Macrobid -] OBJECTIVE: VS, labs, imaging reviewed NAD, AAO, resting comfortably in bed NC AT EOMI PERRLA RRR s1/2 no mgr Lungs CTAB, w/ sym exp NT ND +BS CN2-12 wnl, no fnd, moves all 4 extremities without any obvious changes to sensorium Not agitated, demented EKG reviewed On telemetry Echo 05/2018 reviewed; normal LVED with mild MR/TR/AR ASSESSMENT AND PLAN: Patient presents following period of unresponsiveness 1) Unresponsiveness -Unclear etiology; hasn't been witnessed here. Could be sleeping, medication induced, etc. She was prescribed oxycodone for her hip sgy so we will hold this for now and monitor neuro checks and seizure precautions. Followup head CT. -EKG reviewed; can review telemetry overnight. No clear syncope but limited history. -UA unremarkable 2) Recent hip sgy -Avoid opiates given #1 and will give APAP 3) Dementia -Will confirm code status with family 4) Mild valvular disease -Noted on echo, not hemodynamically significant 5)
[2018-10-03] MEDS ORDERED: SODIUM CHLORIDE 500 ML IV ONE ×2 (22:24→22:53)
[2018-10-03] MEDS ORDERED: oxyCODONE HCL 5 MG TABLET PO PRN (22:34)
[2018-10-03] MEDS ORDERED: ACETAMINOPHEN 325 MG TABLET (FP) PO PRN (22:34)
--- NOTE | 2018-10-03 22:39 | HP ---
CHIEF COMPLAINT: unresponsiveness PCP: Dr. Kingston from [facility] HISTORY OF PRESENT ILLNESS: Patient is an 88 yo F, poor historian, demented at baseline, with a history of multiple falls, recent Hip fracture, HTn, HLD, presented from [facility] because a period of unresponsiveness. Patient was found on her wheel chair unresponsive with her head laid down on the table. She was then transferred to her bed from the wheel chair and regained consciousness. Patient did not fall. Per son, patient broke her hip last month, and patient has been on strict fall precautions. He said she gets less time alone in her room and gets less naps. He believes she may have just been sleeping on the wheelchair. Patient has no complaints. She denies sob, chest pain, nausea, vomiting, fevers , dizziness, urinary issues. She was started on a 7 day course of macrobid on the for a UTI. Recent Travel: denies PAST MEDICAL HISTORY: per HPI Social History: Smoking: denies Alcohol: denies Drugs: denies Allergies Iodinated Contrast- Oral and IV Dye [IV Dye, Iodine Containing Contrast ] Allergy (Severe, Verified 10/03/18 17:51) " MY BODY IS ON FIRE " meperidine HCl [From Demerol] Allergy (Severe, Verified 10/03/18 17:51) Vomiting morphine Allergy (Severe, Verified 10/03/18 17:51) Vomiting pitavastatin calcium [From Livalo] Allergy (Verified 10/03/18 17:51) venom-honey bee [bee venom (honey bee)] Allergy (Verified 10/03/18 17:51) HOME MEDICATIONS: Home Medications Medication Instructions Recorded Cholecalciferol (Vitamin D3) 2,000 unit PO DAILY #0 tab 06/22/14 [Vitamin D3 -] Aspirin 81 mg PO DAILY 06/07/18 Diltiazem Cd [Cardizem Cd -] 90 mg PO DAILY 06/07/18 Sertraline HCl [Zoloft] 50 mg PO DAILY 06/07/18 Docusate Sodium [Colace -] 300 mg PO HS capsule 06/12/18 Polyethylene Glycol 3350 [Miralax 17 gm PO DAILY bottle 06/12/18 119 gm Btl -] Acetaminophen [Tylenol .Regular 650 mg PO Q4H PRN tablet 09/05/18 Strength -] Enoxaparin [Lovenox -] 30 mg SQ DAILY disp.syrin 09/05/18 oxyCODONE HCL [Roxicodone -] 5 mg PO Q4H PRN 4 Days #30 tablet 09/05/18 MDD 4 Donepezil HCl [Aricept] 10 mg PO DAILY 10/03/18 Mirtazapine [Remeron -] 15 mg PO HS 10/03/18 Nitrofurantoin Monohyd/M-Cryst 100 mg PO BID 10/03/18 [Macrobid -] REVIEW OF SYSTEMS CONSTITUTIONAL: Absent: fever, chills, diaphoresis, generalized weakness, malaise, loss of appetite, weight change HEENT: Absent: rhinorrhea, nasal congestion, throat pain, throat swelling, difficulty swallowing, mouth swelling, ear pain, eye pain, visual changes CARDIOVASCULAR: Absent: chest pain, syncope, palpitations, irregular heart rate, lightheadedness , peripheral edema RESPIRATORY: Absent: cough, shortness of breath, dyspnea with exertion, orthopnea, wheezing, stridor, hemoptysis GASTROINTESTINAL: Absent: abdominal pain, abdominal distension, nausea, vomiting, diarrhea, constipation, melena, hematochezia GENITOURINARY: Absent: dysuria, frequency, urgency, hesitancy, hematuria, flank pain, genital pain MUSCULOSKELETAL: Absent: myalgia, arthralgia, joint swelling, back pain, neck pain NEUROLOGIC: Absent: headache, focal weakness or paresthesias, dizziness, unsteady gait, seizure, mental status changes, bladder or bowel incontinence PHYSICAL EXAMINATION Vital Signs - 24 hr 10/03/18 17:48 Temperature 98.3 F Pulse Rate 76 Respiratory 18 Rate Blood Pressure 161/73 O2 Sat by Pulse 95 Oximetry (%) GENERAL: demented, a/o x 3, nad HEAD: Normal with no signs of trauma. EYES: extraocular movements intact, sclera anicteric, conjunctiva clear. EARS, NOSE, THROAT: oropharynx clear without exudates. Moist mucous membranes. NECK: Normal range of motion, supple without lymphadenopathy, JVD, or masses. LUNGS: Breath sounds equal, clear to auscultation bilaterally. No wheezes, and no crackles. HEART: Regular rate and rhythm, normal S1 and S2 without murmur, rub or gallop. ABDOMEN: soft, diffuse tenderness to palpations. soft. +BS MUSCULOSKELETAL: RROM in LLE due to hip fracture LOWER EXTREMITIES: 2+ pulses, No peripheral edema. NEUROLOGICAL: Cranial nerves II-XII intact. Laboratory Results - last 24 hr 10/03/18 10/03/18 10/03/18 18:26 18:26 18:26 WBC 5.8 RBC 4.11 Hgb 11.7 Hct 37.6 D MCV 91.4 MCH 28.6 MCHC 31.3 L RDW 15.9 H Plt Count 216 D MPV 9.2 D Absolute Neuts (auto) 3.6 Neutrophils % 61.5 Lymphocytes % 25.7 D Monocytes % 10.6 H Eosinophils % 1.2 D Basophils % 1.0 Nucleated RBC % 0 Sodium 145 Potassium 4.0 Chloride 107 Carbon Dioxide 31 Anion Gap 6 L BUN 16 Creatinine 0.7 Est GFR (CKD-EPI)AfAm 89.03 Est GFR (CKD-EPI)NonAf 76.82 Random Glucose 91 Calcium 8.9 Magnesium 2.5 H Total Bilirubin 0.2 AST 34 ALT 38 Alkaline Phosphatase 322 H Creatine Kinase 29 Troponin I < 0.02 Total Protein 5.7 L Albumin 3.2 L Total Amylase 49 Cancelled Lipase 241 Cancelled Urine Color Urine Appearance Urine pH Ur Specific [place] Urine Protein Urine Glucose (UA) Urine Ketones Urine Blood Urine Nitrite Urine Bilirubin Urine Urobilinogen Ur Leukocyte Esterase 10/03/18 18:40 WBC RBC Hgb Hct MCV MCH MCHC RDW Plt Count MPV Absolute Neuts (auto) Neutrophils % Lymphocytes % Monocytes % Eosinophils % Basophils % Nucleated RBC % Sodium Potassium Chloride Carbon Dioxide Anion Gap BUN Creatinine Est GFR (CKD-EPI)AfAm Est GFR (CKD-EPI)NonAf Random Glucose Calcium Magnesium Total Bilirubin AST ALT Alkaline Phosphatase Creatine Kinase Troponin I Total Protein Albumin Total Amylase Lipase Urine Color Yellow Urine Appearance Clear Urine pH 6.5 Ur Specific [place] 1.015 Urine Protein Negative Urine Glucose (UA) Negative Urine Ketones Negative Urine Blood Negative Urine Nitrite Negative Urine Bilirubin Negative Urine Urobilinogen 1.0 Ur Leukocyte Esterase Negative ASSESSMENT/PLAN: 88 yo F, poor historian, demented at baseline, with a history of multiple falls , recent Hip fracture, HTn, HLD, presented from [facility] because a period of unresponsiveness. #Unresponsiveness -tele monitoring -recent echo noted. Unremarkable -FU Head CT -Iv fluids: gentle hydration x 1 500ml bag -monitor vitals -fall precautions #Elevated Alk phos -GGT -abd Us #Hx of Hip fracture -oxycodone prn for Pain #Recent UTI -was diagnosied on 10/01 at the care home. -cont. Macrobid 100mg BID #Dementia -cont. Donepezil #FEN -IV fluids NS @ 50 x 1 500ml bag -monitor -regular diet #DVT -lovenox 30 sq dispo: tele obs Visit type - Emergency Visit Emergency Visit: Yes Care time: The patient presented to the Emergency Department on the above date and was hospitalized for further evaluation of their emergent condition. - New Patient This patient is new to me today: Yes Date on this admission: 10/08/18 - Critical Care Critical Care patient: No
[2018-10-03] MEDS ORDERED: oxyCODONE HCL 5 MG TABLET ONE (23:21)
[2018-10-03] MEDS ORDERED: PATIENT'S OWN MEDICATION (NON-FORMULARY) (Nitrofurantoin Monohyd/M-Cryst 100 MG) PO SCH (23:45)
[2018-10-04 06:28] LABS: BASO % 1.2 % (0-2.0); EOS % 2.3 % (0-4.5); HEMATOCRIT 36.6 % (32.4-45.2); HEMOGLOBIN 11.7 GM/dL (10.7-15.3); LYMPH % 30.8 % (8-40); MCH 28.9 pg (25.7-33.7); MCHC 32.1 g/dl (32.0-36.0); MEAN CELL VOLUME 89.9 fl (80-96); MEAN PLT VOLUME 8.9 fl (7.5-11.1); MONO % 10.6 % (3.8-10.2); NEUT % 55.1 % (42.8-82.8); PLATELET COUNT 215 K/MM3 (134-434); RBC 4.07 M/mm3 (3.60-5.2); RDW 16.2 % (11.6-15.6); WHITE BLOOD COUNT 5.6 K/mm3 (4.0-10.0)
[2018-10-04 06:47] LABS: BILIRUBIN,TOTAL 0.3 mg/dL (0.2-1); CALCIUM 9.4 mg/dL (8.5-10.1); CREATININE 0.6 mg/dL (0.55-1.3); MAGNESIUM 2.4 mg/dL (1.8-2.4); PHOSPHOROUS 3.2 mg/dL (2.5-4.9); POTASSIUM 3.8 mmol/L (3.5-5.1); TOT PROT 5.4 g/dl (6.4-8.2)
[2018-10-04] MEDS ORDERED: SERTRALINE HCL 50 MG TABLET (FP) PO SCH (10:00)
[2018-10-04] MEDS ORDERED: ENOXAPARIN NA (PORCINE) 30 MG/0.3 ML DISP.SYRIN SQ SCH (10:00)
[2018-10-04] MEDS ORDERED: ASPIRIN 81 MG CHEWABLE TABLETS PO SCH (10:00)
[2018-10-04] MEDS ORDERED: CHOLECALCIFEROL (VITAMIN D3) 1,000 UNIT TABLET (FP) PO SCH (10:00)
[2018-10-04] MEDS ORDERED: ENOXAPARIN NA (PORCINE) 40 MG/0.4 ML DISP.SYRIN SQ SCH (10:00)
[2018-10-04] MEDS ORDERED: POLYETHYLENE GLYCOL 3350 119 GM BTL PO SCH (10:00)
--- NOTE | 2018-10-04 14:25 | EKG ---
Test Reason : Blood Pressure : / mmHG Vent. Rate : 076 BPM Atrial Rate : 076 BPM P-R Int : 154 ms QRS Dur : 076 ms QT Int : 408 ms P-R-T Axes : 077 006 044 degrees QTc Int : 459 ms NORMAL SINUS RHYTHM POSSIBLE LEFT ATRIAL ENLARGEMENT INFERIOR INFARCT (CITED ON OR BEFORE 07-JUN-2018) POSSIBLE ANTERIOR INFARCT , AGE UNDETERMINED ABNORMAL ECG WHEN COMPARED WITH ECG OF 14-SEP-2018 17:06, BORDERLINE CRITERIA FOR ANTERIOR INFARCT ARE NOW PRESENT Confirmed by KEVIN CARRERO MD ([id number]) on 10/04/2018 2:25:45 PM Referred By: Confirmed By:KEVIN CARRERO MD
--- NOTE | 2018-10-04 18:17 | DS ---
Physical Exam: SUBJECTIVE: Patient seen and examined at bedside. Feels fine and offers no complaints. Son at bedside as well and feels like she had just fallen asleep at [place] and did not syncopize. OBJECTIVE: Vital Signs Period Temp Pulse Resp BP Sys/Barber Pulse Ox Last 24 Hr 99.1 F 75-77 16-16 142-144/67-74 96-98 PHYSICAL EXAM GENERAL: The patient is awake, alert, and oriented to self only. HEAD: Normal with no signs of trauma. EYES: extraocular movements intact, sclera anicteric, conjunctiva clear. LUNGS: Breath sounds equal, clear to auscultation bilaterally, no wheezes, no crackles, no accessory muscle use. HEART: Regular rate and rhythm, S1, S2 ABDOMEN: Soft, nontender, nondistended, normoactive bowel sounds EXTREMITIES: 2+ pulses, warm, well-perfused, no edema. No calf tenderness. NEUROLOGICAL: Cranial nerves II through XII grossly intact. Normal speech, gait not observed. PSYCH: Normal mood, normal affect. SKIN: Warm, dry LABS Laboratory Results - last 24 hr 10/03/18 10/03/18 10/03/18 18:26 18:26 18:26 WBC 5.8 RBC 4.11 Hgb 11.7 Hct 37.6 D MCV 91.4 MCH 28.6 MCHC 31.3 L RDW 15.9 H Plt Count 216 D MPV 9.2 D Absolute Neuts (auto) 3.6 Neutrophils % 61.5 Lymphocytes % 25.7 D Monocytes % 10.6 H Eosinophils % 1.2 D Basophils % 1.0 Nucleated RBC % 0 Sodium 145 Potassium 4.0 Chloride 107 Carbon Dioxide 31 Anion Gap 6 L BUN 16 Creatinine 0.7 Est GFR (CKD-EPI)AfAm 89.03 Est GFR (CKD-EPI)NonAf 76.82 Random Glucose 91 Calcium 8.9 Phosphorus Magnesium 2.5 H Total Bilirubin 0.2 GGT AST 34 ALT 38 Alkaline Phosphatase 322 H Creatine Kinase 29 Troponin I < 0.02 Total Protein 5.7 L Albumin 3.2 L Total Amylase 49 Cancelled Lipase 241 Cancelled Urine Color Urine Appearance Urine pH Ur Specific [place] Urine Protein Urine Glucose (UA) Urine Ketones Urine Blood Urine Nitrite Urine Bilirubin Urine Urobilinogen Ur Leukocyte Esterase 10/03/18 10/04/18 10/04/18 18:40 04:00 05:30 WBC 5.6 RBC 4.07 Hgb 11.7 Hct 36.6 MCV 89.9 MCH 28.9 MCHC 32.1 RDW 16.2 H Plt Count 215 MPV 8.9 Absolute Neuts (auto) 3.1 Neutrophils % 55.1 Lymphocytes % 30.8 Monocytes % 10.6 H Eosinophils % 2.3 D Basophils % 1.2 Nucleated RBC % 0 Sodium Potassium Chloride Carbon Dioxide Anion Gap BUN Creatinine Est GFR (CKD-EPI)AfAm Est GFR (CKD-EPI)NonAf Random Glucose Calcium Phosphorus Magnesium Total Bilirubin GGT 26 AST ALT Alkaline Phosphatase Creatine Kinase Troponin I Total Protein Albumin Total Amylase Lipase Urine Color Yellow Urine Appearance Clear Urine pH 6.5 Ur Specific [place] 1.015 Urine Protein Negative Urine Glucose (UA) Negative Urine Ketones Negative Urine Blood Negative Urine Nitrite Negative Urine Bilirubin Negative Urine Urobilinogen 1.0 Ur Leukocyte Esterase Negative 10/04/18 10/04/18 05:30 12:50 WBC RBC Hgb Hct MCV MCH MCHC RDW Plt Count MPV Absolute Neuts (auto) Neutrophils % Lymphocytes % Monocytes % Eosinophils % Basophils % Nucleated RBC % Sodium 142 Potassium 3.8 Chloride 108 H Carbon Dioxide 30 Anion Gap 4 L BUN 12 Creatinine 0.6 Est GFR (CKD-EPI)AfAm 93.66 Est GFR (CKD-EPI)NonAf 80.81 Random Glucose 85 Calcium 9.4 Phosphorus 3.2 Magnesium 2.4 Total Bilirubin 0.3 GGT AST 39 H ALT 39 Alkaline Phosphatase 318 H Creatine Kinase Troponin I < 0.02 Total Protein 5.4 L Albumin 3.0 L Total Amylase Lipase Urine Color Urine Appearance Urine pH Ur Specific [place] Urine Protein Urine Glucose (UA) Urine Ketones Urine Blood Urine Nitrite Urine Bilirubin Urine Urobilinogen Ur Leukocyte Esterase HOSPITAL COURSE: Date of Admission:10/03/18 Date of Discharge: 10/04/18 88 y/o F w/PMH of dementia, multiple falls, HTN, HLD, recent hip fracture presented from [facility] for possible syncopal episode. Pt was on her wheelchair and was found with her head on table and sent to ER for further evaluation. According to son the table is meant for her to sleep on and it was unlikely she syncopized especially as she has not been napping in her room as often and therefore falls asleep often when on wheelchair. Pt is a poor historian and unable to recall details of event. Labs were unremarkable except for elevated ALP, carotid U/S did not show significant hemodynamic stenosis, abd U/S done which a small hepatic cyst, EKG with NSR. Pt remained stable and son also noted she was at her baseline. Pt to be discharged back to [facility]. Minutes to complete discharge: 55 Discharge Summary Reason For Visit: SYNCOPE Current Active Problems Altered consciousness (Acute) Syncope (Acute) Condition: Stable - Instructions Diet, Activity, Other Instructions: resume previous diet and activity Disposition: CUSTODIAL FACILITY - Home Medications Comprehensive Discharge Medication List: Ambulatory Orders Cholecalciferol (Vitamin D3) [Vitamin D3 -] 2,000 unit PO DAILY #0 tab 06/22/14 Aspirin 81 mg PO DAILY 06/07/18 Diltiazem Cd [Cardizem Cd -] 90 mg PO DAILY 06/07/18 Sertraline HCl [Zoloft] 50 mg PO DAILY 06/07/18 Docusate Sodium [Colace -] 300 mg PO HS capsule 06/12/18 Polyethylene Glycol 3350 [Miralax 119 gm Btl -] 17 gm PO DAILY bottle 06/12/18 Acetaminophen [Tylenol .Regular Strength -] 650 mg PO Q4H PRN tablet 09/05/18 Enoxaparin [Lovenox -] 30 mg SQ DAILY disp.syrin 09/05/18 oxyCODONE HCL [Roxicodone -] 5 mg PO Q4H PRN 4 Days #30 tablet MDD 4 09/05/18 Donepezil HCl [Aricept] 10 mg PO DAILY 10/03/18 Mirtazapine [Remeron -] 15 mg PO HS 10/03/18 Nitrofurantoin Monohyd/M-Cryst [Macrobid -] 100 mg PO BID 10/03/18 This patient is new to me today: Yes Date on this admission: 10/04/18 Emergency Visit: Yes ED Registration Date: 10/03/18 Care time: The patient presented to the Emergency Department on the above date and was hospitalized for further evaluation of their emergent condition. Critical Care patient: No - Discharge Referral Referred to [facility] Med P.C.: No
[2018-10-04] MEDS ORDERED: MIRTAZAPINE 15 MG TABLET (FP) PO SCH (22:00)
[2018-10-04] MEDS ORDERED: DOCUSATE SODIUM 100 MG CAPSULE (FP) PO SCH (22:00)
[2018-10-04] MEDS ORDERED: DONEPEZIL HCL 10 MG TABLET (FP) PO SCH (22:00)
[2018-10-04] MEDS ORDERED: DONEPEZIL HCL 5 MG TABLET (FP) ONE (22:22)
[2018-10-04] MEDS ORDERED: DOCUSATE SODIUM 100 MG CAPSULE (FP) PO ONE (22:22)
[2018-10-04] MEDS ORDERED: MIRTAZAPINE 15 MG TABLET (FP) ONE (22:23)
[2018-10-04 23:39] VITALS: BP 134/86; PULSE 82; TEMP 98.3
== END 2018-10-04 23:49 ==
LOC: JER 17:33 → JERBED 21:48 → UNDOADMOB 21:48 → JER 10-04 23:49
DX: R40.4 Transient alteration of awareness (principal); R55 Syncope and collapse; I10 Essential (primary) hypertension; E78.5 Hyperlipidemia, unspecified; F03.90 Unspecified dementia, unspecified severity, without behavioral disturbance, psychotic disturbance, mood disturbance, and anxiety; F94.8 Other childhood disorders of social functioning; Z87.440 Personal history of urinary (tract) infections; Z91.81 History of falling; Z87.81 Personal history of (healed) traumatic fracture
CPT/HCPCS: 36415; 71045-TC-FY; 76705-TC; 80053; 81003; 82150; 82550; 82977; 83690; 83735; 84100; 84484; 85025; 87086; 93005; 93010; 93880-TC; 99285-25